=== PATIENT | female | born 1940 | race Caucasian/White ===

== ENCOUNTER 2017-08-05 08:19 | Inpatient (IN) | payer MEDICARE, OTHER ==
[2017-08-05 09:09] LABS: Bilirubin Negative (Negative); Blood, Urine Negative (Negative); Clarity CLEAR (Clear); Glucose, Urine (Dipstick) Negative (Negative); Leukocyte Negative (Negative); Nitrite Negative (Negative); Protein, Urine (Dipstick) 30 mg/dL (Neg-Trace); Specific Gravity, Urine 1.021 (1.002-1.036)
[2017-08-05 09:13] LABS: #Eosinphils 0.2 thou/uL (0.0-0.7); #Monocytes 0.6 thou/uL (0.11-0.59); #Neutrophils 4.3 thou/uL (1.40-6.50); %Basophils 0.5 % (0.0-1.0); %Eosinophils 2.4 % (0.0-10.0); %Lymphocytes 28.1 % (21.0-51.0); %Monocytes 8.4 % (0.0-10.0); %Neutrophils 60.6 % (42.0-75.0); Mean Corpuscular HGB CONC 33.2 g/dL (32.0-36.0); Mean Corpuscular Hemoglobin 33.8 pg (27.0-31.0); Mean Platelet Volume 8.3 fL (7.4-10.4); Platelet Count 376 thou/uL (130-400); Red Blood Cell (RBC) Count 3.56 mill/uL (4.20-5.40)
[2017-08-05 09:18] LABS: ALT (SGPT) 11 U/L (8-55); AST (SGOT) 15 U/L (5-34); Albumin 3.5 g/dL (3.4-4.8); Alkaline Phosphatase 113 U/L (40-150); Anion Gap 12 mmol/L (10-20); BUN (Urea Nitrogen) 9 mg/dL (9.8-20.1); Bilirubin, Total 0.4 mg/dL (0.2-1.2); CK (CPK) 39 U/L (29-168); Calc. Creatinine Clearance 0 mL/min (70-130); Calcium 8.9 mg/dL (7.8-10.44); Carbon Dioxide 24 mmol/L (23-31); Chloride 107 mmol/L (98-107); Estimated GFR-MDRD 60; Globulin 3.3 g/dL (2.4-3.5); Glucose 99 mg/dL (83-110); Lipase Less than 4 U/L (8-78); Protein, Total 6.8 g/dL (6.0-8.3); Sodium 140 mmol/L (136-145)
[2017-08-05 09:23] LABS: Bacteria/HPF None Seen HPF (None Seen); Hyaline Casts/LPF 0-3 HYALINE CAST LPF (0-3 Hyaline); Squamous Epithelial 0-3 HPF (0-3); WBC/HPF 0-3 HPF (0-3)
[2017-08-05 09:27] LABS: Potassium 2.7 mmol/L (3.5-5.1)
[2017-08-05 09:47] LABS: Renal Epithelial 0-3 HPF (0-3); Transitional Epithelial 0-3 HPF (0-3)
[2017-08-05] MEDS ORDERED: Morphine 4 MG/ML VIAL ONE ×3 (09:59→13:26)
[2017-08-05] MEDS ORDERED: ISOVUE-370 76%-LOCM 1 ML ONE (11:15)
--- NOTE | 2017-08-05 11:30 | CT ---
CT ABDOMEN AND PELVIS WITH IV CONTRAST: HISTORY: Abdominal pain. Vomiting. COMPARISON: 04/10/16. FINDINGS: Mild atelectasis at the lung bases. The gallbladder is surgically absent. Pancreas is atrophied. S carring and atrophy of the cortex of each kidney. Urinary bladder is decompressed. Prominent degenerative changes lumbar spine. Right hip prosthesis. Small amount of free fluid is present within the left upper quadrant and the dependent portion of the pelvis. There is subtle diffuse thickening of the bowel wall including most of the small bowel and colon. A focal area of inflammation is not reliably demonstrated. A loop of small bowel in the left upper quadrant is slightly distended with fluid, although the overall pattern is not suggestive of o bstruction. IMPRESSION: 1. Mild diffuse edema of the bowel without evidence of obstruction. Cause is not evident. 2. Diverticulosis. No findings of diverticulitis are reliably demonstrated. 3. Atherosclerosis. POS: [facility]
[2017-08-05] MEDS ORDERED: metroNIDAZOLE 500 MG/100 ML BAG ONE (13:56)
[2017-08-05] MEDS ORDERED: Potassium Chloride 20 MEQ TAB ONE (14:13)
[2017-08-05] MEDS ORDERED: Ondansetron ODT 4 MG TAB SL PRN (15:36)
[2017-08-05] MEDS ORDERED: Ondansetron HCl/PF 4 MG/2 ML Vial IVP PRN ×2 (15:36→16:35)
[2017-08-05] MEDS ORDERED: Acetaminophen 325 MG TAB PO PRN (15:36)
[2017-08-05] MEDS ORDERED: Sodium Chloride 0.9% 1,000 ML IV SCH (15:36)
[2017-08-05 16:02] VITALS: BMI 24.6
[2017-08-05] MEDS: Potassium Chloride 20 MEQ in Premix Bag 1 BAG IVPB SCH (16:16)
[2017-08-05] MEDS ORDERED: Bisacodyl 5 MG TAB PO PRN (16:35)
[2017-08-05] MEDS ORDERED: Ondansetron ODT 4 MG TAB PO PRN (16:35)
[2017-08-05] MEDS ORDERED: HYDROcodone/Acetaminophen 10/325 mg Tablet PO PRN (16:35)
[2017-08-05] MEDS ORDERED: diphenhydrAMINE 25 MG CAP PO PRN (16:35)
[2017-08-05] MEDS: Sodium Chloride 0.9% 1,000 ML IV SCH (16:56)
[2017-08-05] MEDS: Morphine 4 MG/ML VIAL SLOW IVP PRN ×2 (16:57→21:15)
--- NOTE | 2017-08-05 18:52 | HP ---
PRIMARY CARE PHYSICIAN: Gildardo Saunders D.O. in [facility]. CHIEF COMPLAINT: Abdominal pain with nausea, vomiting and diarrhea. HISTORY OF PRESENT ILLNESS: This is a 76-year-old white female with a known history of severe gastro enteritis infections about once every couple of years. Her last one was in March of this year, oft en will need to be admitted to the hospital for pain control and IV antibiotics. Patient reports izabella t yesterday evening around 5:00 p.m., she started developing sharp abdominal pains followed by persis tent nausea, vomiting of food and dry heaves more than 10 times and diarrhea seems like every 10 glenn shon, unable to quantify a number of times watery without blood or mucus. She said she had about an h our sleep last night due to severe pain and eventually decided to come into the emergency room. In t he ER, she required several doses of morphine to get her pain under control. CT scan was done which showed diffuse swelling of her intestines consistent with acute gastroenteritis, so she is being admi tted for pain control and IV hydration. She was also noted to have a severely low potassium of 2.7. She was given potassium cocktail in the emergency room. PAST MEDICAL HISTORY: 1. Hypertension. 2. Hyperlipidemia. 3. Remote history of atrial fibrillation. 4. Previous transient ischemic attack. 5. Osteoarthritis. PAST SURGICAL HISTORY: 1. Back surgery. 2. Right hip surgery x4. 3. Left ankle surgery x2. 4. Right ankle surgery x1. 5. Tonsillectomy. 6. Appendectomy. 7. Cholecystectomy. 8. Bilateral tubal ligation. FAMILY HISTORY: Father with coronary artery disease and myocardial infarction. Mother with hyperten mayra and thyroid cancer and a daughter with thyroid cancer. SOCIAL HISTORY: No tobacco, alcohol, or illicit drug use. She is a retired nurse's aide. ALLERGIES: 1. NONSTEROIDAL ANTI-INFLAMMATORY DRUGS. 2. PENICILLIN. 3. CEPHALOSPORINS. 4. CORTISONE. 5. DILAUDID. 6. MELOXICAM. 7. TORADOL. MEDICATIONS: 1. Furosemide 40 mg daily. 2. Tramadol 50 mg 4 times a day as needed. 3. Amlodipine/benazepril 10/40 mg 1 cap daily. 4. Hydrocodone/acetaminophen 10/325 mg 1-2 tabs every 4 hours as needed. 5. Protonix 40 mg daily. 6. Potassium chloride 20 mEq daily. 7. Trazodone 100 mg at night. REVIEW OF SYSTEMS: Constitutional: No fever. She has had chills with the nausea and vomiting. Eye s: No double vision or blurred vision. ENT: She has chronic postnasal drip. No sore throat. Card iovascular: No chest pain, no palpitations or racing heart. Pulmonary: She has occasional cough fr om a scratchy throat, but this is baseline for her. No shortness of breath or chest tightness. Maria Elena rointestinal: See HPI. Genitourinary: No dysuria or hematuria. Musculoskeletal: She has chronic pain in the back, hips, knees, and ankles which she takes [place] multiple times a day for. Skin: Lilliam navarrete reports a red rash that developed after Cipro effusion at this time. She has had Cipro in the p ast without a problem, but started getting itchy and red all of her arm until the infusion was stoppe d and now it is improving. No other skin changes. Neurologic: She reports chronic intermittent fee t tingling. No other focal neurologic symptoms. PHYSICAL EXAMINATION: VITAL SIGNS: Blood pressure 106/65, pulse 62, respirations 18, temperature 97.7, O2 sat 97% on room air. GENERAL: This is a well-developed, well-nourished elderly white female in no acute distress. HEENT: Pupils equal, round, and reactive to light. Oropharynx clear without lesions, erythema or ex udate. NECK: Supple, no lymphadenopathy, no thyroid nodules or enlargement, no JVD. HEART: Regular rate and rhythm, no murmurs, rubs or gallops. LUNGS: Clear to auscultation bilaterally, no wheezes, crackles or rhonchi. ABDOMEN: Tender to palpation diffusely, worse in the midepigastric region, no guarding, no rebound t enderness. No organomegaly. Normoactive bowel sounds. EXTREMITIES: No clubbing, cyanosis or edema. SKIN: No rashes or other lesions noted. NEUROLOGIC: Cranial nerves intact and equal bilaterally. Deep tendon reflexes 2+ in all extremities and strength 5/5 in all extremities. PSYCHIATRIC: Alert and oriented x3. Mildly anxious affect. LABORATORY DATA: CBC is grossly within normal limits except for MCV elevated at 102. Complete metab olic panel was notable for a potassium of 2.7, BUN of 9. The rest is normal. Lactic acid was negati ve. Magnesium was normal. Urinalysis was negative for infection. CT scan of the abdomen and pelvis in the emergency room showed mild diffuse edema of the bowel without evidence of obstruction. Diver ticulosis was noted without diverticulitis and atherosclerosis. ASSESSMENT AND PLAN: 1. Acute gastroenteritis, severe abdominal pain. This is consistent with her previous episodes in t he past. Patient has had a reaction to ciprofloxacin, so we will stop that. This acute gastritis ac tually does not have any appearance of bacterial source at this time, so we will actually discontinue antibiotics completely. We will give IV fluids, antiemetics, and advance her diet as tolerated. We will also give morphine IV until she is able to start taking her [place] again by mouth. 2. Hypokalemia, possibly related to her diarrhea and vomiting. Also, she has not been able to take her daily potassium tablet. We will replace IV until she is back to normal level and would attempt t o resume her oral medication. 3. Chronic pain. We will give morphine as needed until she can resume her chronic oral pain medicat ions. 4. Hypertension. Resume patient's high blood pressure medications. Hold for any low blood pressure . 5. Gastrointestinal prophylaxis. We will continue patient's Protonix. 6. Deep venous thrombosis prophylaxis. We will put patient on Lovenox and sequential compression de vices while in bed. 7. CODE STATUS: Patient is a FULL CODE. Should she be incapacitated, her daughter would be her med [facility] power of energy attorney, her name is Lena Bass.
[2017-08-05] MEDS ORDERED: Famotidine/PF 20 mg/2ml Vial SLOW IVP SCH (21:00)
[2017-08-05] MEDS ORDERED: Prevnar 13-Val Conj/PF 0.5 ML SYRINGE IM ONE (21:00)
[2017-08-05] MEDS ORDERED: traZODone HCl 50 MG TAB PO SCH (21:00)
[2017-08-05] MEDS: Mag-Al 1200 mg/1200 mg/30 ML UDCUP PO PRN (23:41)
[2017-08-06] MEDS: Morphine 4 MG/ML VIAL SLOW IVP PRN ×4 (00:26→09:15)
[2017-08-06] MEDS: Sodium Chloride 0.9% 1,000 ML IV SCH (03:05)
[2017-08-06 05:40] LABS: #Eosinphils 0.3 thou/uL (0.0-0.7); #Lymphocytes 2.8 thou/uL (1.20-3.40); #Monocytes 0.6 thou/uL (0.11-0.59); #Neutrophils 2.4 thou/uL (1.40-6.50); %Basophils 0.7 % (0.0-1.0); %Eosinophils 5.6 % (0.0-10.0); %Lymphocytes 45.2 % (21.0-51.0); %Monocytes 9.6 % (0.0-10.0); %Neutrophils 38.9 % (42.0-75.0); Mean Corpuscular HGB CONC 33.2 g/dL (32.0-36.0); Mean Corpuscular Hemoglobin 33.5 pg (27.0-31.0); Mean Platelet Volume 7.4 fL (7.4-10.4); Platelet Count 249 thou/uL (130-400); RBC Distribution Width 12.8 % (11.5-14.5); Red Blood Cell (RBC) Count 2.69 mill/uL (4.20-5.40); White Blood Cell (WBC) Count 6.2 thou/uL (4.8-10.8)
[2017-08-06 06:06] LABS: Anion Gap 7 mmol/L (10-20); BUN (Urea Nitrogen) 5 mg/dL (9.8-20.1); Calc. Creatinine Clearance 72 mL/min (70-130); Calcium 7.6 mg/dL (7.8-10.44); Carbon Dioxide 23 mmol/L (23-31); Chloride 113 mmol/L (98-107); Estimated GFR-MDRD 88; Glucose 79 mg/dL (83-110); Potassium 3.5 mmol/L (3.5-5.1); Sodium 139 mmol/L (136-145)
--- NOTE | 2017-08-06 07:31 | PDOC.PN ---
- Subjective Encounter Start Date: 08/06/17 Encounter Start Time: 09:30 Subjective: Patient with resolution of N/V. Diarrhea only 2 times this AM. Still with -: abdominal pain along with her chronic pain. States usually takes 2 Sugarcreek -: 10 2-3 times per day, though out and no more until next week with PCP - Objective Resuscitation Status: Resuscitation Status FULL:Full Resuscitation MAR Reviewed: Yes Vital Signs & Weight: Vital Signs (12 hours) Temp Pulse Resp BP Pulse Ox 08/06/17 03:21 98.0 F 65 15 110/61 92 L 08/06/17 00:25 97.5 F L 63 16 99/56 L 97 08/05/17 20:03 98.0 F 69 15 118/65 97 Weight Weight 139 lb 4 oz I&O: 08/05/17 08/06/17 08/07/17 06:59 06:59 06:59 Intake Total 2701 Balance 2701 Result Diagrams: 08/06/17 04:43 08/06/17 04:43 Phys Exam - Physical Examination Constitutional: NAD HEENT: moist MMs Respiratory: no wheezing, no rales, no rhonchi Cardiovascular: RRR, no significant murmur Gastrointestinal: soft, no distention, positive bowel sounds diffuse upper abd moderat TTP, no guarding or rebound tenderness, no masses Musculoskeletal: no edema Neurological: non-focal, moves all 4 limbs Psychiatric: normal affect, A&O x 3 Dx/Plan (1) Acute gastroenteritis Code(s): K52.9 - NONINFECTIVE GASTROENTERITIS AND COLITIS, UNSPECIFIED Status : Acute Comment: food poisoning vs. viral infection (2) Dehydration Code(s): E86.0 - DEHYDRATION Status: Resolved (3) Hypokalemia Code(s): E87.6 - HYPOKALEMIA Status: Resolved (4) Anxiety and depression Code(s): F41.9 - ANXIETY DISORDER, UNSPECIFIED; F32.9 - MAJOR DEPRESSIVE DISORDER, SINGLE EPISODE, UNSPECIFIED Status: Chronic (5) GERD (gastroesophageal reflux disease) Code(s): K21.9 - GASTRO-ESOPHAGEAL REFLUX DISEASE WITHOUT ESOPHAGITIS Status: Chronic (6) HLD (hyperlipidemia) Code(s): E78.5 - HYPERLIPIDEMIA, UNSPECIFIED Status: Chronic Qualifiers: Hyperlipidemia type: unspecified hyperlipidemia (7) Hypertension Code(s): I10 - ESSENTIAL (PRIMARY) HYPERTENSION Status: Chronic Qualifiers: Hypertension type: essential hypertension Qualified Code(s): I10 - Essential (primary) hypertension (8) Chronic pain Code(s): G89.29 - OTHER CHRONIC PAIN Status: Chronic - Plan cont current plan of care, PT/OT, out of bed/ambulate, DVT proph w/lovenox, DVT proph w/SCDs Transition to oral pain meds, d/c today as taking good po fluid -: Counseled patient that I cannot refill her Sugarcreek from the hospital, must -: go to see her PCP, will give a script of Tramadol to make it through the -: weekend. Patient states that has worked ok for her in the past as well. * . - Discharge Encounter end time: 10:05
[2017-08-06] MEDS ORDERED: Loperamide HCl 2 MG CAP PO PRN (07:34)
[2017-08-06] MEDS ORDERED: Enoxaparin Sodium 40 MG/0.4 ML SYRINGE SC SCH (09:00)
[2017-08-06] MEDS ORDERED: Amlodipine 5 mg/Benazepril 20 mg CAP PO SCH (09:00)
[2017-08-06] MEDS ORDERED: Potassium Chloride 20 MEQ TAB PO SCH (09:00)
[2017-08-06] MEDS ORDERED: HYDROcodone/Acetaminophen 10/325 mg Tablet PO PRN (10:06)
[2017-08-06] MEDS: Mag-Al 1200 mg/1200 mg/30 ML UDCUP PO PRN (10:50)
[2017-08-06 11:34] VITALS: BP 115/63; TEMP 98.1
--- NOTE | 2017-08-06 18:42 | DIS ---
PRIMARY CARE PHYSICIAN: Gildardo Saunders DO in [place], [place]. REASON FOR ADMISSION: Abdominal pain with nausea, vomiting, and diarrhea. DISCHARGE DIAGNOSES: 1. Acute gastroenteritis, improving, food poisoning versus viral infection. 2. Dehydration, resolved. 3. Hypokalemia, resolved. 4. Chronic pain. 5. Anxiety and depression. 6. Gastroesophageal reflux disease. 7. Hyperlipidemia. 8. Hypertension. PROCEDURE: CT of the abdomen and pelvis with IV contrast showing mild diffuse edema of the bowel wit hout evidence of obstruction. No diverticulosis, no diverticulitis, and atherosclerosis. CONSULTATIONS: None. PERTINENT LABORATORY DATA: Hemoglobin initially 12, down to 9 after fluid resuscitation. No evidenc e of active bleeding. Potassium initially 2.7 up to 3.5 at discharge, creatinine 0.65 at discharge. Negative lactic acid. Normal liver function tests. Urinalysis is negative for infection. SUMMARY OF HOSPITAL COURSE: This is a 76-year-old white female with a known history of severe gastro enteritis infections about once every couple years, the last one was in March of this year usually needs to be admitted to the hospital for pain control and IV antibiotics. The patient also has chron ic pain, is on [place] 10 mg 2 tablets 2-3 times per day from her primary care physician. At the time of discharge, the patient reported that she actually has been out of this medication and would not se e her primary care physician for another week or two to get a refill, so this may be contributing. S he developed acute onset of abdominal pain, nausea, vomiting many times, and watery diarrhea in copio us amounts. She was seen in the emergency room with the above studies. The patient was given IV flu ids; IV morphine for pain control, which she required a lot in the emergency room; and then given a d ose of metronidazole and ciprofloxacin in the ER. When the ciprofloxacin started running, she starte d getting itching all over her arms, so it was stopped with resolution of the itching. She has not h ad a problem with this medication in the past including last March. The patient was admitted to [facility]. She did well overnight. She had a low potassium and evidence of dehydration on admissio n, was given IV potassium and IV fluids, and she was much better the next morning down to 2 bowel mov ements this morning and no more nausea or vomiting. She has been tolerating oral pain medications an d oral fluids and is being switched to a full diet. She continues to have abdominal pain, which is f airly typical for her after these attacks along with her chronic pain. This has improved with Mesilla in the hospital. DISCHARGE MANAGEMENT: Discharged home. Follow up with primary care physician next week. ACTIVITY: As tolerated. DIET: Healthy heart diet with plenty of fluids. MEDICATIONS: The patient is to resume her home medications. 1. Potassium chloride 20 mEq daily. 2. Trazodone 100 mg at night. 3. Protonix 40 mg daily. 4. Furosemide 40 mg daily. 5. Amlodipine/benazepril 1 cap daily. 6. Hydrocodone 10/325 mg 2 tablets as needed for pain when she gets refill from her primary care tarsha griffin plus I have given her prescriptions for. 7. Tramadol 50 mg 2 tablets every 6 hours as needed for pain, 20 tablets dispensed. 8. Prescription of Zofran ODT 4 mg q.6 hours as needed for nausea and vomiting, 15 tablets dispensed .
== END 2017-08-06 13:44 | disposition home or self-care (01) | DRG 641 ==
LOC: ERS 08:19 → T4-B 12:11
PROVIDERS: ADMIT Emergency Medicine; ATTEND Emergency Medicine
DX: E86.0 Dehydration (principal); K52.9 Noninfective gastroenteritis and colitis, unspecified; Z86.73 Personal history of transient ischemic attack (TIA), and cerebral infarction without residual deficits; M19.90 Unspecified osteoarthritis, unspecified site; E78.5 Hyperlipidemia, unspecified; I10 Essential (primary) hypertension; Z88.0 Allergy status to penicillin; Z79.899 Other long term (current) drug therapy; E87.6 Hypokalemia; G89.29 Other chronic pain
CPT/HCPCS: 36415; 51701; 74177; 80048; 80053; 81003; 81015; 82550; 83605; 83690; 83735; 85025; 87040; 87045; 87046; 87086; 87149; 87324; 87449; 87493; 87899; 90471; 90670; 93005; 96365; 96366; 96367; 96375; 96376; A4353; G0009; J0744; J1650; J2270; J3480; Q0162

== ENCOUNTER 2017-08-07 18:40 | Emergency (ER) | payer MEDICARE, OTHER ==
[2017-08-07] MEDS ORDERED: Haloperidol Lactate 5 MG/ML VIAL ONE (19:19)
[2017-08-07] MEDS ORDERED: HYDROcodone/Acetaminophen 10/325 mg Tablet ONE (19:19)
[2017-08-07] MEDS ORDERED: Pantoprazole 40 MG VIAL ONE (19:42)
[2017-08-07 20:16] LABS: #Basophils 0.1 thou/uL (0.0-0.2); #Eosinphils 0.2 thou/uL (0.0-0.7); #Monocytes 0.7 thou/uL (0.11-0.59); #Neutrophils 6.3 thou/uL (1.40-6.50); %Basophils 1.3 % (0.0-1.0); %Eosinophils 2.3 % (0.0-10.0); %Monocytes 7.7 % (0.0-10.0); %Neutrophils 67.8 % (42.0-75.0); Hemoglobin 11.9 g/dL (12.0-16.0); Mean Corpuscular HGB CONC 33.1 g/dL (32.0-36.0); Mean Corpuscular Hemoglobin 33.3 pg (27.0-31.0); Mean Platelet Volume 7.4 fL (7.4-10.4); Platelet Count 334 thou/uL (130-400); RBC Distribution Width 12.7 % (11.5-14.5); Red Blood Cell (RBC) Count 3.57 mill/uL (4.20-5.40); White Blood Cell (WBC) Count 9.3 thou/uL (4.8-10.8)
[2017-08-07 20:16] LABS: Bilirubin Negative (Negative); Blood, Urine Negative (Negative); Clarity CLEAR (Clear); Glucose, Urine (Dipstick) Negative (Negative); Leukocyte Negative (Negative); Nitrite Negative (Negative); Protein, Urine (Dipstick) Negative (Neg-Trace); Specific Gravity, Urine 1.011 (1.002-1.036); Urobilinogen 0.2 mg/dL (0.2-1.0); pH, Urine 8.5 (5.0-9.0)
[2017-08-07 20:32] LABS: Albumin 3.9 g/dL (3.4-4.8)
[2017-08-07 20:33] LABS: Chloride 105 mmol/L (98-107); Potassium 4.5 mmol/L (3.5-5.1); Sodium 141 mmol/L (136-145)
[2017-08-07 20:34] LABS: Glucose 123 mg/dL (83-110)
[2017-08-07 20:35] LABS: Globulin 3.5 g/dL (2.4-3.5); Protein, Total 7.4 g/dL (6.0-8.3)
[2017-08-07 20:36] LABS: Anion Gap 14 mmol/L (10-20); Bilirubin, Total 0.3 mg/dL (0.2-1.2); Carbon Dioxide 27 mmol/L (23-31)
[2017-08-07 20:37] LABS: Alkaline Phosphatase 131 U/L (40-150)
[2017-08-07 20:38] LABS: Calc. Creatinine Clearance 0 mL/min (70-130); Estimated GFR-MDRD 65
[2017-08-07 20:39] LABS: BUN (Urea Nitrogen) 7 mg/dL (9.8-20.1)
[2017-08-07 20:40] LABS: ALT (SGPT) 20 U/L (8-55); AST (SGOT) 33 U/L (5-34); Lipase Less than 4 U/L (8-78)
[2017-08-07 20:43] LABS: Calcium 9.2 mg/dL (7.8-10.44)
== END 2017-08-07 21:34 | disposition home or self-care (01) ==
LOC: ERS 18:40
DX: K52.9 Noninfective gastroenteritis and colitis, unspecified (principal); I10 Essential (primary) hypertension; M19.90 Unspecified osteoarthritis, unspecified site; F41.9 Anxiety disorder, unspecified; F32.9 Major depressive disorder, single episode, unspecified; Z79.891 Long term (current) use of opiate analgesic; Z79.899 Other long term (current) drug therapy
CPT/HCPCS: 80053; 81003; 83690; 85025; 96372; 96374; 96375; C9113; J1630

== ENCOUNTER 2019-11-25 11:47 | Inpatient (IN) | payer MEDICARE, OTHER ==
[2019-11-25] MEDS ORDERED: Morphine 4 MG/ML VIAL ONE ×2 (12:08→13:07)
[2019-11-25 12:19] LABS: #Basophils 0.1 thou/uL (0.0-0.2); #Eosinphils 0.2 thou/uL (0.0-0.7); #Lymphocytes 2.5 thou/uL (1.20-3.40); #Neutrophils 6.9 thou/uL (1.40-6.50); %Basophils 0.5 % (0.0-1.0); %Lymphocytes 23.3 % (21.0-51.0); %Monocytes 9.2 % (0.0-10.0); %Neutrophils 65.1 % (42.0-75.0); Hemoglobin 11.5 g/dL (12.0-16.0); Mean Corpuscular HGB CONC 33.1 g/dL (32.0-36.0); Mean Corpuscular Hemoglobin 32.2 pg (27.0-31.0); Mean Corpuscular Volume 97.5 fL (78.0-98.0); Mean Platelet Volume 8.7 fL (7.4-10.4); Platelet Count 250 thou/uL (130-400); RBC Distribution Width 11.8 % (11.5-14.5); Red Blood Cell (RBC) Count 3.58 mill/uL (4.20-5.40); White Blood Cell (WBC) Count 10.7 thou/uL (4.8-10.8)
--- NOTE | 2019-11-25 12:45 | RAD ---
Chest one view HISTORY: Chest pain. COMPARISON: 04/10/2016. FINDINGS: Cardiac silhouette is magnified by projection. Pulmonary vasculature is unremarkable. Mediastinum is midline with aortic calcification. No lobar consolidation or evidence of pneumothorax. IMPRESSION : Atherosclerosis. No active cardiopulmonary abnormalities are demonstrated.
--- NOTE | 2019-11-25 12:47 | RAD ---
Left lower leg 2 views HISTORY: Injury. FINDINGS: Tibia and fibula are intact. Long lag screw transfixes the tibiotalar joint. No valentin-hardwa re lucency. No acute fracture, dislocation, or aggressive osseous erosions. IMPRESSION : No acute osseous abnormalities are demonstrated.
[2019-11-25 13:00] LABS: ALT (SGPT) 12 U/L (8-55); AST (SGOT) 23 U/L (5-34); Albumin 3.6 g/dL (3.4-4.8); Alkaline Phosphatase 200 U/L (40-110); Anion Gap 20 mmol/L (10-20); BUN (Urea Nitrogen) 13 mg/dL (9.8-20.1); Bilirubin, Total 0.6 mg/dL (0.2-1.2); Calc. Creatinine Clearance 0 mL/min (70-130); Calcium 6.6 mg/dL (7.8-10.44); Carbon Dioxide 29 mmol/L (23-31); Chloride 89 mmol/L (98-107); Estimated GFR-MDRD 43; Globulin 3.2 g/dL (2.4-3.5); Glucose 94 mg/dL (83-110); Protein, Total 6.8 g/dL (6.0-8.3); Sodium 135 mmol/L (136-145)
--- NOTE | 2019-11-25 13:03 | RAD ---
LEFT FEMUR FOUR VIEWS: INDICATIONS: Trauma. FINDINGS: Oblique displaced fracture involving the proximal diaphysis of the left femur is noted. Degenerative changes at the hip and knee. IMPRESSION: Displaced fracture, proximal diaphysis of left femur. POS: [facility]
[2019-11-25 13:05] LABS: Potassium 2.8 mmol/L (3.5-5.1)
[2019-11-25 13:22] LABS: Magnesium 1.4 mg/dL (1.6-2.6); Phosphorus 3.3 mg/dL (2.3-4.7)
--- NOTE | 2019-11-25 13:41 | RAD ---
RIGHT TIBIA/FIBULA TWO VIEWS: History: Trauma FINDINGS: There is spiral type fracture with slight communition involving the distal diaphysis of the tibia. Th ere is an associated oblique fracture without significant displacement involving the distal fibula at the lateral malleolus. IMPRESSION: Fractures distal tibia and fibula. POS: [facility]
--- NOTE | 2019-11-25 13:46 | RAD ---
AP PELVIS: History: Trauma FINDINGS: Right hip prosthesis is noted. Degenerative changes of the left hip. Pelvis appears intact. The left hip is inadequately evaluated. See dedicated films of the left femur. IMPRESSION: As above. POS: [facility]
--- NOTE | 2019-11-25 13:47 | RAD ---
RIGHT FEMUR FOUR VIEWS: History: Trauma FINDINGS: Right hip prosthesis appears adequately positioned. No fracture of the right femur identified. Degene rative changes at the knee. IMPRESSION: No acute findings. POS: [facility]
[2019-11-25] MEDS ORDERED: Ondansetron PF 4 MG/2 ML Vial ONE (13:48)
[2019-11-25] MEDS ORDERED: PROPOFOL 200 MG/20 ML VIAL ONE (13:48)
[2019-11-25] MEDS ORDERED: Lidocaine 1% PF 5 ML VIAL ONE (13:48)
[2019-11-25] MEDS ORDERED: Rocuronium Bromide 10 MG/ML (10ML VIAL) ONE (13:48)
[2019-11-25] MEDS ORDERED: PHENYLEPHRINE-NS 100 MCG/ML 10 ML SYRINGE ONE (13:48)
[2019-11-25] MEDS ORDERED: Fentanyl 100 MCG/2 ML VIAL ONE ×4 (13:48→18:45)
[2019-11-25] MEDS ORDERED: Dexamethasone 20 MG/5 ML VIAL ONE (13:48)
[2019-11-25] MEDS ORDERED: Phenylephrine 10 MG/ML VIAL ONE (13:49)
[2019-11-25] MEDS ORDERED: Potassium Chloride 40 MEQ in Sodium Chloride 0.9% 250 ML 250 ML IVPB SCH (14:00)
[2019-11-25] MEDS ORDERED: Potassium Chloride 20 MEQ in Premix Bag 1 BAG IVPB SCH (14:00)
[2019-11-25 14:13] LABS: SARS-CoV-2 NAA Rapid Test Not Detected (NotDetected)
[2019-11-25] MEDS ORDERED: Sodium Chloride 0.9% 500 ML IV SCH (14:30)
[2019-11-25] MEDS ORDERED: Dextrose 5% in Water 1,000 ML IV PRN (14:41)
[2019-11-25] MEDS ORDERED: Dextrose 50% Abboject 50 ML SYRINGE SLOW IVP PRN (14:41)
[2019-11-25] MEDS ORDERED: Morphine 2 MG/ML VIAL SLOW IVP PRN (14:41)
[2019-11-25] MEDS ORDERED: hydrALAZINE 20 MG/ML VIAL SLOW IVP PRN (14:41)
[2019-11-25] MEDS ORDERED: Promethazine HCl 25 MG/ML VIAL IM PRN ×3 (14:41→19:07)
[2019-11-25] MEDS ORDERED: Ketamine 50 MG/ML (10ML VIAL) ONE (14:43)
[2019-11-25] MEDS ORDERED: traMADol HCl 50 MG TAB PO PRN (14:45)
[2019-11-25] MEDS ORDERED: Calcium Chloride 1 GM/10 ML Abboject SYRINGE IVP SCH (14:45)
[2019-11-25] MEDS ORDERED: traMADol HCl 50 MG TAB PO SCH (14:45)
[2019-11-25] MEDS ORDERED: Magnesium Sulfate 4 GM in Sodium Chloride 0.9% 250 ML 250 ML IVPB SCH (14:45)
[2019-11-25] MEDS ORDERED: Cepastat Lozenges 1 LOZ PO PRN (14:45)
[2019-11-25] MEDS ORDERED: Levofloxacin 500 mg/D5W 100 ml Premix Bag ONE (15:18)
[2019-11-25] MEDS ORDERED: Clindamycin/D5W 900 mg/50 ml Premix Bag ONE (15:18)
--- NOTE | 2019-11-25 16:46 | CON ---
DATE OF CONSULTATION: HISTORY OF PRESENT ILLNESS: Ms. Holcomb is a 78-year-old female, who has peripheral neuropathy. She feels that she has poor balance because of this. She frequently falls. She was in her kitchen this morning when she lost her balance. She did have a walker nearby, but it rolled away from her. She fell and twisted her legs. She was unable to ambulate. She was taken to the emergency department by EMS. X-rays showed a left subtrochanteric femur fracture as well as a right distal tibia fracture and fibular fracture. General Surgery Trauma has seen the patient. She has had a negative COVID test. ALLERGIES: KEFLEX, CORTISONE, DILAUDID, KETOROLAC, MELOXICAM, PENICILLIN, AND TORADOL. MEDICATIONS: Please see chart. PAST MEDICAL HISTORY: Positive for hypertension, osteoarthritis, GERD, diverticulitis. SURGICAL HISTORY: Previous right hip arthroplasty, previous left ankle fusion, cholecystectomy, tubal ligation, appendectomy, multiple spinal surgeries. SOCIAL HISTORY: The patient lives at [facility]. She denies tobacco, alcohol, or drug use. She uses a walker at baseline. IMAGING STUDIES: X-rays of the right tibia demonstrate a distal tibia and fibular fracture with displacement. The patient has thin cortices and osteoporotic appearing bone. There is some displacement of the fracture. Left femur x-rays demonstrate a subtrochanteric displaced femur fracture. PHYSICAL EXAMINATION: VITAL SIGNS: Blood pressure is 125/84, pulse is 84, respiratory rate is 18, temperature is 98.3. GENERAL: She is alert, lying supine, no apparent distress. RESPIRATORY: Breathing comfortably. HEENT: Normocephalic and atraumatic. MUSCULOSKELETAL: The patient's left lower extremity has shortening and external rotation. She has warm and well-perfused feet. She has palpable dorsalis pedis pulses. Sensation is intact distally. Upper extremities are atraumatic. She has pain with hip motion of the left leg. Her right tibia is painful and there is swelling and ecchymosis. IMPRESSION: Right distal tibia and fibular fracture, left subtrochanteric femur fracture. PLAN: The patient will go to the operating room for intramedullary nail of the left femur and right tibia. We will proceed with this today. She is at risk for complications such as infection, wound complication, nerve or vascular injury, DVT, as well as medical complications. Goal of surgery is early mobilization and to provide pain relief. We are trying to prevent complications of prolonged bedrest. She will be given preoperative antibiotics and she will have postoperative DVT prophylaxis. Job ID: [id number]
[2019-11-25] MEDS ORDERED: Ondansetron HCl/PF 4 MG/2 ML Vial IVP PRN (17:43)
[2019-11-25] MEDS ORDERED: Promethazine HCl 25 MG/ML VIAL SLOW IVP PRN (17:43)
[2019-11-25] MEDS ORDERED: SUGAMMADEX SODIUM 200 MG/2 ML VIAL ONE (17:49)
--- NOTE | 2019-11-25 18:18 | RAD ---
RIGHT TIBIA/FIBULA: Seven fluoroscopic images obtained from OR. Indications: Intraoperative imaging during ORIF. FINDINGS: These images demonstrate intramedullary ad transfixing the tibia. IMPRESSION: As above. POS: [facility]
[2019-11-25] MEDS ORDERED: Zolpidem Tartrate 5 MG TAB PO PRN (19:07)
[2019-11-25] MEDS ORDERED: diphenhydrAMINE 50 MG/ML VIAL IVP PRN (19:07)
[2019-11-25] MEDS ORDERED: Ondansetron PF 4 MG/2 ML Vial IVP PRN (19:07)
[2019-11-25] MEDS ORDERED: fentaNYL Citrate/PF 2,000 MCG in Sodium Chloride 0.9% 60 ML IV PRN (19:07)
[2019-11-25] MEDS ORDERED: diphenhydrAMINE 50 MG/ML VIAL IM PRN (19:07)
[2019-11-25] MEDS ORDERED: Naloxone HCl 0.4 mg/ml Vial IV PRN (19:07)
[2019-11-25] MEDS ORDERED: diphenhydrAMINE 25 MG CAP PO PRN (19:07)
[2019-11-25] MEDS ORDERED: Communication Order-Pharmacy FS SCH (19:15)
[2019-11-25] MEDS: Acetaminophen 500 MG TAB PO SCH ×2 (20:18→21:31)
[2019-11-25] MEDS: Gabapentin 300 MG CAP PO SCH ×2 (20:19→21:31)
[2019-11-25] MEDS ORDERED: Clindamycin/D5W 900 MG in Premix Bag 1 BAG IVPB SCH (20:45)
[2019-11-25] MEDS ORDERED: Cholecalciferol 1,000 UNITS (25 MCG) TAB PO SCH (21:00)
[2019-11-25] MEDS: Sodium Chloride 0.9% 1,000 ML IV SCH ×2 (21:30)
[2019-11-25] MEDS: Senokot S 8.6-50 MG TAB PO SCH (21:31)
[2019-11-25] MEDS ORDERED: Gabapentin 300 MG CAP PO SCH (22:23)
[2019-11-26] MEDS: Clindamycin/D5W 900 MG in Premix Bag 1 BAG IVPB SCH ×2 (00:09→09:29)
[2019-11-26] MEDS: Calcium Carbonate 500 MG ChewTAB PO PRN ×3 (00:34→20:16)
[2019-11-26] MEDS: Cyclobenzaprine 10 MG TAB PO PRN ×3 (00:34→20:17)
[2019-11-26 01:25] VITALS: BMI 29.5
[2019-11-26] MEDS: Acetaminophen 500 MG TAB PO SCH ×2 (02:25→09:42)
[2019-11-26 04:49] LABS: Hemoglobin 8.7 g/dL (12.0-16.0); Mean Corpuscular HGB CONC 32.5 g/dL (32.0-36.0); Mean Corpuscular Hemoglobin 31.5 pg (27.0-31.0); Mean Corpuscular Volume 96.8 fL (78.0-98.0); Mean Platelet Volume 8.9 fL (7.4-10.4); Platelet Count 190 thou/uL (130-400); RBC Distribution Width 11.7 % (11.5-14.5); Red Blood Cell (RBC) Count 2.75 mill/uL (4.20-5.40)
[2019-11-26 05:21] LABS: Anion Gap 14 mmol/L (10-20); BUN (Urea Nitrogen) 18 mg/dL (9.8-20.1); Calc. Creatinine Clearance 45 mL/min (70-130); Calcium 6.4 mg/dL (7.8-10.44); Carbon Dioxide 25 mmol/L (23-31); Chloride 92 mmol/L (98-107); Estimated GFR-MDRD 43; Glucose 196 mg/dL (83-110); Magnesium 2.2 mg/dL (1.6-2.6); Phosphorus 4.3 mg/dL (2.3-4.7); Potassium 3.3 mmol/L (3.5-5.1); Sodium 128 mmol/L (136-145)
--- NOTE | 2019-11-26 07:50 | RAD ---
LEFT FEMUR: Six fluoroscopic images are presented from OR Indication: Imaging during ORIF. FINDINGS: These images show intermedullary ad in the femur transfixing fracture. IMPRESSION: As above. POS: [facility]
[2019-11-26] MEDS ORDERED: Calcium Chloride 1 GM/10 ML Abboject SYRINGE IVP SCH (08:45)
[2019-11-26] MEDS: Gabapentin 300 MG CAP PO SCH ×2 (09:28→20:18)
[2019-11-26] MEDS: Famotidine 20 MG TAB PO SCH (09:28)
[2019-11-26] MEDS: Calcium Carbonate 600 MG + Vit D TAB PO SCH ×2 (09:29→16:35)
[2019-11-26] MEDS: Polyethylene Glycol 3350 17 GM Packet PO SCH (09:30)
[2019-11-26] MEDS: Senokot S 8.6-50 MG TAB PO SCH ×2 (09:31→20:18)
[2019-11-26] MEDS: Cholecalciferol 1,000 UNITS (25 MCG) TAB PO SCH (09:37)
[2019-11-26] MEDS: Sodium Chloride 0.9% 1,000 ML IV SCH ×2 (09:42→11:54)
[2019-11-26] MEDS ORDERED: ADMIXTURE FEE IVPB SCH (10:45)
[2019-11-26] MEDS ORDERED: SODIUM CHLORIDE IVPB SCH (10:45)
[2019-11-26] MEDS ORDERED: CALCIUM CHLORIDE IVPB SCH (10:45)
[2019-11-26] MEDS: Morphine 4 MG/ML VIAL SLOW IVP PRN ×3 (12:37→21:12)
[2019-11-26] MEDS: traMADol HCl 50 MG TAB PO SCH ×2 (12:51→19:07)
--- NOTE | 2019-11-26 12:56 | HP ---
This is Emely Hawley NP dictating a report for Denny Godfrey MD. REQUESTING PHYSICIAN: Freeman Multani MD. ATTENDING: Denny Godfrey MD PRIMARY CARE PHYSICIAN: Dr. Lali Rubi at [facility]. CONSULTS: Orthopedic surgery, Dr. Maharaj. CHIEF COMPLAINT: Mechanical fall. HISTORY OF PRESENT ILLNESS: This is a 78-year-old female, who lives in assisted living apartment at [facility]. The patient states that she was ambulating in her home when she felt both of her legs buckle causing her to fall to the ground. The patient denies any loss of consciousness or hitting her head. The patient denies feeling weak, dizzy, short of breath or having any chest pain prior to the event. The patient states that she has been having tingling and issues with her legs for about a year. The patient reports that over the last 6 months it has gotten worse where her legs feel heavy and it feels like constant, ants are biting her. The patient also sees a pain specialist for chronic pain due to arthritis. The patient does have a hand picker, who comes in 3 days a week to assist with chores and cooking. The patient uses a walker to ambulate. The patient reports when she fell, it took her approximately 30 minutes to scoup herself to her cellphone using her upper extremities. The patient has been n.p.o. since dinner yesterday. The patient was given morphine 4 mg for pain. She denies nausea, vomiting, diarrhea or abdominal pain. Denies any recent illness. REVIEW OF SYSTEMS: A 10-point review of systems is negative unless otherwise indicated in the above HPI. ALLERGIES: KEFLEX, CORTISONE INJECTIONS, DILAUDID, KEFLEX, TORADOL, MELOXICAM, AND PENICILLIN. CURRENT MEDICATIONS: 1. Lasix. 2. Gabapentin 300 mg b.i.d. 3. Tramadol. The patient is unsure of her other medications. PAST MEDICAL HISTORY: Hypertension, diverticulitis, osteoarthritis, anxiety and depression. PAST SURGICAL HISTORY: Right hip surgery, left ankle surgery, appendectomy, cholecystectomy, tubal ligation, multiple spinal surgeries. SOCIAL HISTORY: The [facility] Denies alcohol use. Denies illicit drug use. Denies history of smoking. PHYSICAL EXAMINATION: VITAL SIGNS: Blood pressure 123/96, pulse 79, respirations 15, SpO2 of 100% on room air, and temperature 98. GENERAL: Elderly female, awake, alert, in no distress, lying in hospital bed. HEENT: Head is atraumatic and normocephalic. Pupils are equal bilateral. Extraocular muscles intact. Mucous membranes slightly dry, trachea is midline. NECK: Normal range of motion. No cervical spine tenderness. No JVD. RESPIRATORY: Equal chest rise and fall. No chest deformity. Bilateral breath sounds clear. No wheezing, rales, or rhonchi. CARDIAC: Regular rate. Regular rhythm. No murmurs. No pedal edema. ABDOMEN: Soft, nontender, and nondistended. EXTREMITIES: Neurovascularly intact x4, right lower extremity splinted and cap refill is less than 2 seconds. No obvious injuries. Left lower extremity, mildly shortened. Distal pulses intact. Strength 5/5 in all 4 extremities. Upper extremities, unremarkable. No obvious trauma. Normal range of motion in upper extremities. NEUROLOGIC: GCS 15. No focal deficits. Cranial nerves intact. LABORATORY DATA: WBC 10.7, RBC 3.58, hemoglobin 11.5, hematocrit 34.9, and platelets 250. Sodium 135, potassium 2.8, chloride 89, BUN 13, creatinine 1.21, estimated GFR 43, glucose 94, calcium 6.6, phosphorus 3.3, magnesium 1.4, AST 23 , ALT 12, alkaline phosphatase 200, and albumin 3.6. DIAGNOSTIC DATA: Chest x-ray, impression, no acute cardiopulmonary abnormalities. Pelvis x-ray, impression, there are degenerative changes to left hip, right hip prosthesis is noted. Pelvis appears intact. Left femur x-ray, impression, displaced fracture, proximal diaphysis of left femur. Tib-fib, left leg, no acute osseous abnormalities demonstrated. Right femur x-ray, right hip prosthesis appears adequately positioned. No fracture of the right femur identified. Tibia fibula, right, fractured distal tibia and fibula. 12-lead EKG, sinus rhythm with prolonged QT. IMPRESSION: 1. Status post fall from standing. 2. Distal tibia and fibula fracture. 3. Proximal left femur fracture. 4. Hypokalemia. 5. Hypomagnesemia. 6. Hyponatremia. 7. Hypocalcemia. 8. Acute kidney injury. PLAN: Admission to the surgical floor. The patient will remain n.p.o. Maintenance fluids, normal saline 100 an hour. Orthopedic Surgery plans to take the patient to the OR today for repair of orthopedic injuries. Pain management, supportive care. We will replace electrolytes. Obtain a PTH and Vitamin D level. We will repeat labs in the morning. PT and OT to evaluate and treat postop likely tomorrow. We will place a rehab versus skilled facility screen as the patient will need additional physical and occupational therapy. The plan was to be discussed with attending after this dictation. The plan was discussed with the patient and the patient's daughter, who agrees. Job ID: [id number] [facility]
--- NOTE | 2019-11-26 13:15 | RAD ---
Exam: XR Foot Lt 3 View STANDARD HISTORY: Left fifth toe pain. COMPARISON: 11/15/2013 FINDINGS: There is osteopenia. A single screw again transfixes the tibiotalar joint. No fracture or dislocation is seen. No osseous destruction is identified. No other findings. IMPRESSION: No acute osseous abnormality is identified.
[2019-11-26] MEDS: Potassium Chloride 40 MEQ in Sodium Chloride 0.9% 250 ML 250 ML IVPB SCH ×2 (14:00→16:49)
--- NOTE | 2019-11-26 16:20 | PRG ---
DATE OF SERVICE: 11/26/2019 SUBJECTIVE: The patient was seen this evening during rounds. She is postoperative day 0 after fixation of her left femur and right distal tib-fib fractures. Upon our evaluation, the patient was sitting up in bed, awake and alert. She was having chips and coke. She reported her pain is well controlled. We did adjust the patient in the bed. OBJECTIVE: VITAL SIGNS: The patient was hemodynamically stable on room air, and afebrile. GENERAL: Well-appearing elderly female, sitting up in bed with no signs of acute distress. PULMONARY: Equal chest rise and fall. No signs of acute respiratory distress. CARDIAC: Regular rate and rhythm. GI: Abdomen is soft, nontender, nondistended. EXTREMITIES: 2+ pulses in all extremities. Gross motor and sensation intact. No significant swelling noted. NEUROLOGIC: GCS is 15. ASSESSMENT: 1. Status post fall from standing. 2. Left femur fracture. 3. Right distal tib-fib fracture. 4. Acute kidney injury. 5. Hypokalemia, hypomagnesemia, hypocalcemia. 6. Vitamin D insufficiency. 7. History of arthritis, hypertension, chronic pain, diverticulitis, depression, and anxiety. PLAN: Continue current regular diet. Continue normal saline at 100 an hour. Anesthesia has placed a fentanyl MANAGER COSMETICS, continue that overnight. Discontinue Pepcid. Start PPI. Hold the patient's Lasix and antihypertensive for now. Replace electrolytes as previously ordered. Job ID: [id number]
--- NOTE | 2019-11-26 17:04 | OP ---
DATE OF PROCEDURE: 11/25/2019 OPERATION: Left femur intramedullary nail and right tibial intramedullary nail. PREOPERATIVE DIAGNOSIS: Left subtrochanteric femur fracture and right distal tibia and fibular fracture. POSTOPERATIVE DIAGNOSIS: Left subtrochanteric femur fracture and right distal tibia and fibular fracture. COMPLICATIONS: None. ESTIMATED BLOOD LOSS: Minimal. MANAGER FINANCIAL PLANNING: Juan Taylor. IMPLANTS: Synthes trochanteric femoral nail size 380 mm x 11 mm, Synthes tibial nail size 330 mm x 12 mm. INDICATIONS: Ms. Holcomb is a 78-year-old female, who has fallen and fractured her left femur as well as right tibia. She has been indicated for intramedullary nail fixation to restore anatomic alignment and promote healing and prevent complications of prolonged bedrest. Risks have been reviewed in detail. She has elected to proceed with the operation. DESCRIPTION OF PROCEDURE: The patient was identified in the preoperative holding area. Her correct extremities were marked. She was given intravenous antibiotics. She was carried to the operating room. General anesthesia was induced. A multidisciplinary time-out was performed. The left lower extremity was prepped and draped in sterile fashion. We placed the patient in traction. We reduced the fracture. At this point, we made a small incision over the tip of the trochanter. We then inserted a guidewire at the tip of the trochanter working proximally and distally. At this point, we overdrilled the guidewire after confirming starting point with intraoperative x-ray. We then passed our ball-tipped guidewire from proximal to distal across the fracture. Again, we checked this with x-rays. We measured appropriate length. We then sequentially reamed from an 8.5 reamer up to a size 12 reamer. We then passed an 11 mm trochanteric nail. We placed a helical blade in the center position of the femoral head using appropriate guide and guidewire. We then used an intraoperative x-ray to place a distal Crosslock screw in perfect [place] technique. At this point, we took final images. We then thoroughly irrigated the wounds and closed appropriately in layers. We then moved to the right leg. The right leg was prepped and draped in sterile fashion. We then made a small incision over the anterior knee. We dissected down to the tibial plateau. We used intraoperative x-ray to obtain a starting point. We then passed our guidewire at the tibial plateau distally. We overdrilled the guidewire. We then placed our ball-tipped guidewire across the fracture site, taking care to centralize it distally. Again, we took x-ray images. Next, we reamed from a size 8.5 up to a size 13 reamer. We then passed a 12 mm nail. The nail was seated appropriately using x-ray. We placed 2 proximal Crosslock screws followed by 3 distal Crosslock screws. A final set of x-ray images was taken. We then thoroughly irrigated with copious lavage. We closed all wounds and placed a well-padded splint. The patient was taken to the recovery room in good condition without complication. Job ID: [id number]
[2019-11-26] MEDS ORDERED: Potassium Chloride 20 MEQ TAB PO SCH (17:45)
--- NOTE | 2019-11-26 19:47 | PRG ---
DATE OF SERVICE: 11/26/2019 SUBJECTIVE: The patient was seen during morning rounds with Dr. Hackett, awake, alert, crying in distress due to pain in bilateral lower extremities. The patient currently has a fentanyl CRIME SCENE TECHNICIAN pump, which is not controlling her pain. The patient states she was not able to sleep well last night due to the pain. The patient has multiple allergies, which causes her tongue to swell, which include Tylenol and Motrin. The patient confirmed that she is not allergic to morphine. The patient is tolerating a regular diet. Her urinary output is adequate for the patient's age and weight. The patient's pain increased after attempting to work with Physical Therapy this morning. OBJECTIVE: VITAL SIGNS: Temperature 97.8, pulse 87, respirations 16, SpO2 of 94% on room air, and blood pressure 125/72. GENERAL: Elderly female, in moderate distress due to pain. HEENT: Head is atraumatic and normocephalic. RESPIRATORY: Equal chest rise and fall, no respiratory distress. CARDIAC: Regular rate. Regular rhythm. EXTREMITIES: Right lower extremity splinted. Left extremity in a knee immobilizer. Neurovascularly intact x4, distal pulses intact. NEUROLOGIC: GCS 15, no focal deficits. LABORATORY DATA: WBC 8.0, RBC 2.75, hemoglobin 8.7, hematocrit 26.6, platelets 190. Sodium 128, potassium 3.3, chloride 92, BUN 18, creatinine 1.20, estimated GFR 43, glucose 96, calcium 6.4, phosphorus 4.3, magnesium 2.2, PTH 532, vitamin D 4.7. DIAGNOSTIC DATA: Left foot x-ray, impression, no acute osseous abnormalities. ASSESSMENT: 1. Status post fall from standing. 2. Distal tibia and fibular fracture, status post repair. 3. Proximal left femur fracture, status post repair. 4. Hypokalemia. 5. Hypomagnesemia, improved. 6. Hyponatremia. 7. Hypocalcemia. 8. Prolonged QT, likely related to hypomagnesemia and hypocalcemia. 9. Vitamin D insufficiency. 10. History of arthritis, hypertension, chronic pain, diverticulitis, depression, and anxiety. PLAN: Continue supportive care. Replace electrolytes. High-dose vitamin D 6000 daily for 6-8 weeks for vitamin D insufficiency. We will discontinue the patient's fentanyl CRIME SCENE TECHNICIAN as it is not controlling her pain. We will schedule tramadol and have morphine for breakthrough. We will place the patient on a free water restriction for her hyponatremia. Physical and occupational therapy. Rehab screen has been placed. The plan was discussed with the patient who agrees. The patient was examined by Dr. Hackett during morning rounds. Job ID: [id number]
[2019-11-26] MEDS: Atorvastatin Calcium 10 MG TAB PO SCH (20:17)
[2019-11-26] MEDS ORDERED: Cyclobenzaprine 10 MG TAB PO PRN (23:05)
[2019-11-26] MEDS ORDERED: Naloxone HCl 0.4 mg/ml Vial IV PRN (23:10)
[2019-11-26] MEDS ORDERED: Ondansetron PF 4 MG/2 ML Vial IVP PRN (23:10)
[2019-11-26] MEDS ORDERED: HYDROmorphone 10 mg/100 ml CADD IV PRN (23:10)
[2019-11-26] MEDS ORDERED: Promethazine HCl 25 MG/ML VIAL IM PRN (23:10)
[2019-11-26] MEDS ORDERED: diphenhydrAMINE 25 MG CAP PO PRN (23:10)
[2019-11-26] MEDS ORDERED: diphenhydrAMINE 50 MG/ML VIAL IM/IV PRN (23:10)
[2019-11-26] MEDS ORDERED: Cyclobenzaprine 10 MG TAB PO SCH (23:15)
--- NOTE | 2019-11-27 01:58 | PRG ---
DATE OF SERVICE: 11/26/2019 SUBJECTIVE: Patient was seen this evening during rounds. She was sitting up in bed, resting comfortably and asleep with no signs of acute distress. Later in the evening, the nurse called reporting that patient was having 10/10 pain, not resolved by IV morphine. OBJECTIVE: VITAL SIGNS: Temperature 98.5, pulse 105, respirations 18, oxygen saturation 95% on room air, and blood pressure 122/54. GENERAL: Well-appearing elderly female, lying in bed, asleep, with no signs of acute distress. PULMONARY: Equal chest rise and fall. No signs of acute respiratory distress. ASSESSMENT: 1. Status post fall from standing. 2. Left femoral neck fracture. 3. Right distal tib-fib fracture. 4. Acute kidney injury, stable. 5. Acute hypokalemia, improving. 6. Acute hypomagnesemia, resolved. 7. Vitamin D insufficiency. 8. History of arthritis, hypertension, chronic pain, diverticulitis, depression, and anxiety. PLAN: Continue current diet. We will discontinue the patient's morphine and tramadol and start her on a Dilaudid TRAFFIC DIVISION COMMANDING OFFICER for better pain control. Patient is allergic to Tylenol and NSAIDs. Discontinue morphine. Discontinue Jean in the morning. Trauma to revaluate patient's compartment and pulses this evening after this note. Job ID: [id number]
[2019-11-27] MEDS: Calcium Carbonate 500 MG ChewTAB PO PRN (04:20)
[2019-11-27 05:15] LABS: #Lymphocytes 1.9 thou/uL (1.20-3.40); #Neutrophils 6.9 thou/uL (1.40-6.50); %Basophils 0.4 % (0.0-1.0); %Eosinophils 0.5 % (0.0-10.0); %Monocytes 10.1 % (0.0-10.0); %Neutrophils 70.1 % (42.0-75.0); Hemoglobin 6.8 g/dL (12.0-16.0); Mean Corpuscular HGB CONC 32.5 g/dL (32.0-36.0); Mean Corpuscular Hemoglobin 31.7 pg (27.0-31.0); Mean Corpuscular Volume 97.5 fL (78.0-98.0); Platelet Count 188 thou/uL (130-400); RBC Distribution Width 12.1 % (11.5-14.5); Red Blood Cell (RBC) Count 2.15 mill/uL (4.20-5.40); White Blood Cell (WBC) Count 9.9 thou/uL (4.8-10.8)
[2019-11-27 06:17] LABS: Anion Gap 12 mmol/L (10-20); BUN (Urea Nitrogen) 22 mg/dL (9.8-20.1); Calc. Creatinine Clearance 42 mL/min (70-130); Calcium 7.6 mg/dL (7.8-10.44); Carbon Dioxide 23 mmol/L (23-31); Chloride 98 mmol/L (98-107); Estimated GFR-MDRD 40; Glucose 131 mg/dL (83-110); Magnesium 1.7 mg/dL (1.6-2.6); Phosphorus 2.8 mg/dL (2.3-4.7); Potassium 4.5 mmol/L (3.5-5.1); Sodium 128 mmol/L (136-145)
[2019-11-27] MEDS: Gabapentin 300 MG CAP PO SCH ×2 (08:05→21:05)
[2019-11-27] MEDS: Cholecalciferol 1,000 UNITS (25 MCG) TAB PO SCH (08:06)
[2019-11-27] MEDS: Senokot S 8.6-50 MG TAB PO SCH ×2 (08:06→21:05)
[2019-11-27] MEDS: Famotidine 20 MG TAB PO SCH (08:08)
[2019-11-27] MEDS: Calcium Carbonate 600 MG + Vit D TAB PO SCH ×2 (08:08→17:29)
[2019-11-27] MEDS: Polyethylene Glycol 3350 17 GM Packet PO SCH (08:09)
[2019-11-27] MEDS ORDERED: Magnesium 2 GM/50 ML 2 GM in Premix Bag 1 BAG IVPB SCH (09:30)
[2019-11-27] MEDS ORDERED: Calcium Chloride 13.6 MEQ in Sodium Chloride 0.9% 100 ML IVPB SCH (09:30)
--- NOTE | 2019-11-27 14:46 | PRG ---
DATE OF SERVICE: 11/27/2019 SUBJECTIVE: Checking in on the patient this morning after her left femur and right tibia repair, she is doing okay. Her blood count was a little low today. Her hemoglobin and hematocrit were 6.8 and 20.9. Trauma seen the patient and given her some blood. She has also been encouraged to use her incentive spirometry. Overall, other than feeling tired and a little bit fatigue, she feels okay. She has not done much with physical therapy yet due to her tiredness and she was on a FRUIT GROWER for pain control. Diet, she is eating a little bit and it has progressed since her surgery, but we have encouraged her to eat a little bit more. OBJECTIVE: VITAL SIGNS: Stable. Pulse 110, temperature 99.4. NEUROLOGIC: Speech clear. She is oriented. EXTREMITIES: Bilateral lower extremity dressings are clean, dry, intact. She is moving both lower extremities fairly well. The right a little bit better than the left. Sensations are good as are pulses. Currently, she has blood running and she has no other complaints. LABORATORY DATA: Hemoglobin and hematocrit 6.8 and 20.9. ASSESSMENT: 1. Stable. 2. Postoperative anemia. PLAN: Again Trauma following, treating her medical issues, gave her 1 unit of blood. Hemoglobin and hematocrit will be drawn after this. We will continue to check on her throughout her hospital stay and possibly change her dressings in the next few days. Encouraged incentive spirometry. Increasing diet. Case management also on the patient's case. Job ID: [id number]
--- NOTE | 2019-11-27 14:51 | PRG ---
DATE OF SERVICE: 11/27/2019 SUBJECTIVE: Ms. Holcomb is a 78-year-old female, postop day #2, hospital day #2, status post fall with left femur fracture, right distal tib-fib fracture, CONNOR, hypokalemia, multiple electrolyte abnormalities, prolonged QT, and vitamin D insufficiency, has had difficulty with pain control, worsening by limitations given her allergies to acetaminophen and ibuprofen. The patient is now on a Dilaudid RIGGER UP. She is somewhat sedated, however, with stable vital signs including SpO2 and respiratory status. On her exam, has not worked well with Physical Therapy. She did have a borderline fever at 100.3 on morning rounds today. She is receiving 1 PRBC this morning for hemoglobin of 6.8, had a 2 g drop. Mild hypotension and tachycardia are appreciated. She is on free water restriction. She has been supplemented with vitamin as this was noted to be low as well as her PTH elevated. OBJECTIVE: VITAL SIGNS: Temperature is 100.3, blood pressure 106/67, heart rate is 98, respiratory rate is 14, saturating 95% on 2 L of oxygen nasal cannula. GENERAL: A 78-year-old female, sitting up, pink hair, in no acute distress. HEENT: Normocephalic, atraumatic. Trachea is midline. No JVD is appreciated. RESPIRATORY: Equal rise and fall. CARDIOVASCULAR: Newly tachycardic rhythm. Does have strong pulses. ABDOMEN: Soft. EXTREMITIES: She has splints noted to the right distal and has surgical site to the left lower extremity. She is able to move her extremities well. PSYCH: Normal mood, affect. NEURO: Alert and ordered to person, place, time, and event. DIAGNOSTIC CRITERIA: Today, sodium 128, potassium 4.5, chloride is 98, CO2 is 23, BUN is 22, creatinine is 1.3, glucose is 131, calcium is 7.6 and uncorrected, phosphorus is 2.8, magnesium is 1.7. White blood cell count is 9.9, platelets are 188. Hemoglobin and hematocrit are 6.8 and 20.9 respectively. ASSESSMENT AND PLAN: 1. Status post fall from standing. 2. Right distal tib-fib fracture, status post open reduction and internal fixation. 3. Proximal left femur fracture, status post open reduction and internal fixation. 4. Hypokalemia, resolved. 5. Hypomagnesemia, on replacement now. 6. Hyponatremia, on free water deficit. 7. Hypocalcemia, being replaced. 8. Acute blood loss anemia, needing blood transfusion. 9. Prolonged QT, could be secondary to electrolyte abnormality. 10. Vitamin D deficiency, on replacement. 11. Acute traumatic pain. 12. History of arthritis, hypertension, chronic pain, diverticulitis, depression and anxiety. PLAN: 1. We will stop the Dilaudid RIGGER UP. 2. Start oxycodone. 3. Continue twice daily gabapentin. 4. Encourage PT. 5. Continue vitamin D. 6. Check TSH. 7. Remove Jean now. 8. Rehab screen is in place, awaiting for further. 9. Encouraged IS, only getting just over a 1000 right now and believe that her low-grade fever is likely atelectasis. 10. Encourage movement and cough. 11. We will monitor fever curve. 12. Continue all other supportive care. Awaiting case management plan for rehab placement. However, need to keep the patient overnight tonight to monitor electrolytes and blood levels. Updated the patient, coordinated with the bedside RN. The patient was seen by Dr. Kofi Hackett and can be updated as needed. Job ID: [id number]
[2019-11-27] MEDS ORDERED: Gabapentin 300 MG CAP PO SCH (15:00)
[2019-11-27] MEDS: oxyCODONE 5 MG TAB PO SCH ×2 (15:57→21:04)
[2019-11-27] MEDS: Atorvastatin Calcium 10 MG TAB PO SCH (21:05)
--- NOTE | 2019-11-28 01:12 | PRG ---
DATE OF SERVICE: 11/27/2019 SUBJECTIVE: This is a 78-year-old female, postop day 2, hospital day 2, status post fall resulting in left femur fracture and right distal tib-fib fracture. The patient has multiple medical comorbidities. She is status post PRBC transfusion. Upon my evaluation this evening, she is sleeping. Her pain medications were adjusted earlier today. Bedside nurse does report that the patient did have urinary retention earlier this evening requiring I and O cath x1. She is due to void within the next 2 hours. OBJECTIVE: VITAL SIGNS: The patient is borderline febrile with T-max 100.6 in the past 24 hours. Pulse 98, respirations 18, O2 saturation 95% on room air, blood pressure 119/72. GENERAL: Elderly-appearing female, in no acute distress, resting in bed. Appears to be breathing comfortably. LABORATORY FINDINGS: No new laboratory findings. ASSESSMENT: As documented in the progress note dated 11/27/2019. PLAN: Continue supportive care as ordered. Re-evaluate patient's pain management tomorrow. Followup patient's voiding status. Continue to monitor fever curves. A.m. labs. Job ID: [id number]
[2019-11-28] MEDS: oxyCODONE 5 MG TAB PO SCH ×3 (01:14→14:18)
[2019-11-28 07:09] LABS: #Eosinphils 0.1 thou/uL (0.0-0.7); #Monocytes 1.3 thou/uL (0.11-0.59); #Neutrophils 7.5 thou/uL (1.40-6.50); %Basophils 0.3 % (0.0-1.0); %Eosinophils 0.8 % (0.0-10.0); %Monocytes 11.9 % (0.0-10.0); %Neutrophils 68.9 % (42.0-75.0); Hemoglobin 8.3 g/dL (12.0-16.0); Mean Corpuscular HGB CONC 32.4 g/dL (32.0-36.0); Mean Corpuscular Hemoglobin 31.3 pg (27.0-31.0); Mean Corpuscular Volume 96.5 fL (78.0-98.0); Mean Platelet Volume 8.6 fL (7.4-10.4); Platelet Count 200 thou/uL (130-400); RBC Distribution Width 12.8 % (11.5-14.5); Red Blood Cell (RBC) Count 2.65 mill/uL (4.20-5.40); White Blood Cell (WBC) Count 10.9 thou/uL (4.8-10.8)
[2019-11-28 07:37] LABS: Anion Gap 12 mmol/L (10-20); BUN (Urea Nitrogen) 19 mg/dL (9.8-20.1); Calc. Creatinine Clearance 46 mL/min (70-130); Calcium 7.8 mg/dL (7.8-10.44); Carbon Dioxide 20 mmol/L (23-31); Chloride 102 mmol/L (98-107); Estimated GFR-MDRD 44; Glucose 122 mg/dL (83-110); Phosphorus 2.7 mg/dL (2.3-4.7); Sodium 128 mmol/L (136-145)
[2019-11-28] MEDS: Polyethylene Glycol 3350 17 GM Packet PO SCH (09:47)
[2019-11-28] MEDS: Cholecalciferol 1,000 UNITS (25 MCG) TAB PO SCH (09:48)
[2019-11-28] MEDS: Famotidine 20 MG TAB PO SCH (09:50)
[2019-11-28] MEDS: Calcium Carbonate 600 MG + Vit D TAB PO SCH ×2 (09:50→16:43)
[2019-11-28] MEDS: Senokot S 8.6-50 MG TAB PO SCH (09:50)
[2019-11-28] MEDS: Gabapentin 300 MG CAP PO SCH (09:50)
--- NOTE | 2019-11-28 10:06 | RAD ---
XR Chest 1 View HISTORY: Chest pain COMPARISON: 11/25/2019 FINDINGS: The heart size is prominent but stable. The aorta is tortuous. The lungs are well expanded without focal areas of consolidation, pneumothorax or pleural effusions. Chronic parenchymal changes again seen. IMPRESSION: No radiographic evidence of acute cardiopulmonary process.
[2019-11-28] MEDS ORDERED: Morphine 2 MG/ML VIAL SLOW IVP SCH (11:15)
--- NOTE | 2019-11-28 11:43 | EKG ---
Test Reason : Blood Pressure : / mmHG Vent. Rate : 101 BPM Atrial Rate : 101 BPM P-R Int : 162 ms QRS Dur : 070 ms QT Int : 322 ms P-R-T Axes : 071 007 051 degrees QTc Int : 417 ms Sinus tachycardia Otherwise normal ECG When compared with ECG of 25-NOV-2019 12:52, (Unconfirmed) QT has shortened Confirmed by NELIA CATHERINE M.D. ([id number] on 11/28/2019 11:42:50 AM Referred By: PHILIP CASTILLO Confirmed By:NELIA CATHERINE M.D.
--- NOTE | 2019-11-28 14:07 | DIS ---
DATE OF ADMISSION: 11/25/2019 DATE OF DISCHARGE: 11/28/2019 ATTENDING PHYSICIAN: Kofi Hackett DO ADMITTING DIAGNOSES: 1. Status post fall from standing. 2. Distal tibia and fibula fracture. 3. Proximal left femur fracture. 4. Hypokalemia. 5. Hypomagnesemia. 6. Hyponatremia. 7. Hypocalcemia. 8. Acute kidney injury. 9. History of arthritis. 10. Hypertension. 11. Chronic pain. 12. Diverticulosis. 13. Peripheral neuropathy. 14. Depression. 15. Anxiety. DISCHARGE DIAGNOSES: 1. Status post fall from standing. 2. Right distal tibia fibula fracture, status post open reduction and internal fixation. 3. Proximal left femur fracture, status post open reduction and internal fixation. 4. Prolonged QT. 5. Vitamin D deficiency, on replacement therapy. 6. Acute traumatic pain secondary to above injuries. 7. History of chronic medical problems as stated above. CONSULTING PHYSICIANS: Orthopedics, Dr. Rip Maharaj. PROCEDURES PERFORMED: 1. Open reduction and internal fixation of right distal tibia fibula fracture. 2. Open reduction and internal fixation of proximal left femur fracture. HOSPITAL COURSE: The patient is a 78-year-old female who previously lived at an assisted living apartment at [facility]. The patient was ambulating in her home on November 25, 2019 when she felt both of her legs buckle, causing her to fall to the ground. The patient was brought to the emergency room where she was found to have a displaced fracture of the proximal diaphysis of the left femur. She was also found to have a fracture of the right tibia and fibula distally. Her right hip prosthesis appeared to be adequately positioned with no apparent fracture of the right femur. The patient was admitted to the surgical floor, and Orthopedic Surgery, Dr. Maharaj was consulted. He took the patient to the operating room later that day for repair of orthopedic injuries. The patient was ultimately moved after surgery back to the surgical unit. Physical Therapy and Occupational Therapy worked with the patient throughout her stay, and she was evaluated for rehab, approved for discharge to rehab on November 28, 2019. Pain control was eventually achieved with oxycodone p.o. medication. Of note during this hospitalization, the patient was noted to have a low vitamin D level of 4.7 and an elevated PTH level of 532. She was subsequently started on vitamin D supplementation of 6000 units per day. DISCHARGE PHYSICAL EXAMINATION: On day of discharge, VITAL SIGNS: Temperature 99.0 Fahrenheit, pulse 98, respirations 16, SpO2 of 96% on room air, and blood pressure 107/68. GENERAL: A 78-year-old female, lying in bed, no signs of acute distress. HEENT: Normocephalic, atraumatic. RESPIRATORY: Equal chest rise and fall. No acute respiratory distress. Good inspiratory and expiratory effort. CARDIOVASCULAR: Regular rate, regular rhythm. ABDOMEN: Soft, nontender, nondistended. EXTREMITIES: Splints in place on right lower extremity. Surgical site clean and dry of left lower extremity. NEUROLOGIC: GCS 15. Alert and oriented x3. LABORATORY DATA: On date of discharge, sodium 128, potassium 6.0, chloride 102, carbon dioxide 20, BUN 19, creatinine 1.19, estimated GFR 44, glucose 122, calcium 7.8, phosphorus 2.7, magnesium 2.0. WBC 10.9, RBC 2.65, hemoglobin 8.3, hematocrit 25.6, and platelets 200. RADIOGRAPHIC DATA: No radiographic data postoperatively. MEDICATIONS AT DISCHARGE: 1. Furosemide 40 mg p.o. daily. 2. Amlodipine 10 mg p.o. daily. 3. Benazepril 40 mg p.o. daily. 4. Tramadol 100 mg p.o. q.6 hours p.r.n. 5. Temazepam 7.5 mg p.o. at bedtime p.r.n. 6. Atorvastatin 10 mg p.o. at bedtime. 7. Calcium carbonate and vitamin D 1500 mg and 400 units tablets one tablet p.o. b.i.d. with meals. 8. Flexeril 10 mg p.o. t.i.d. p.r.n. 9. MiraLAX 17 g p.o. daily. 10. Oxycodone immediate release 10 mg p.o. q.6 hours. 11. Senokot two tabs p.o. b.i.d. 12. Tums 1000 mg p.o. p.r.n. 13. Vitamin D3 6000 units p.o. daily. 14. Gabapentin 300 mg p.o. t.i.d. FOLLOWUP: Follow up with Dr. Maharaj in 2 weeks. Follow up with primary care physician in 2 weeks. Discharged to inpatient rehab. No followup needed with Dr. Hackett's clinic. The patient was seen by Dr. Hackett this morning during rounds. Job ID: [id number] MTDD
[2019-11-28 14:55] LABS: Anion Gap 15 mmol/L (10-20); BUN (Urea Nitrogen) 19 mg/dL (9.8-20.1); Calc. Creatinine Clearance 46 mL/min (70-130); Calcium 8.3 mg/dL (7.8-10.44); Carbon Dioxide 18 mmol/L (23-31); Chloride 102 mmol/L (98-107); Estimated GFR-MDRD 44; Glucose 108 mg/dL (83-110); Potassium 5.4 mmol/L (3.5-5.1); Sodium 130 mmol/L (136-145)
[2019-11-28] MEDS ORDERED: Gabapentin 300 MG CAP PO SCH (15:00)
[2019-11-28 16:14] LABS: Bacteria/HPF None Seen HPF (None Seen); Bilirubin Negative (Negative); Blood, Urine Negative (Negative); Clarity Clear (Clear); Glucose, Urine (Dipstick) Normal (Negative); Ketone, Urine Negative (Negative); Leukocyte Negative Leu/uL (Negative); Nitrite Negative (Negative); Protein, Urine (Dipstick) 30 mg/dL (Neg-Trace); RBC/HPF 0-3 HPF (0-3); Squamous Epithelial 0-3 HPF (0-3); Urobilinogen Normal mg/dL (Less than 2); WBC/HPF 0-3 HPF (0-3)
[2019-11-28 16:37] LABS: Troponin I 0.043 ng/mL (< 0.028)
[2019-11-28 17:07] VITALS: BP 123/59; TEMP 98
== END 2019-11-28 17:08 | DRG 480 ==
LOC: ERS 11:47 → SDC/OP 14:05 → SJJU 17:00
PROVIDERS: ADMIT Specialist; ATTEND Specialist
PROC: 0QH736Z Insertion of Intramedullary Internal Fixation Device into Left Upper Femur, Percutaneous Approach (ICD-10-PCS; principal; 2019-11-25)
PROC: 0QHH36Z Insertion of Intramedullary Internal Fixation Device into Left Tibia, Percutaneous Approach (ICD-10-PCS; 2019-11-25)
PROC: 30233N1 Transfusion of Nonautologous Red Blood Cells into Peripheral Vein, Percutaneous Approach (ICD-10-PCS; 2019-11-25)
DX: S82.202A Unspecified fracture of shaft of left tibia, initial encounter for closed fracture (principal); S72.22XA Displaced subtrochanteric fracture of left femur, initial encounter for closed fracture; E87.1 Hypo-osmolality and hyponatremia; N17.9 Acute kidney failure, unspecified; D62 Acute posthemorrhagic anemia; J98.11 Atelectasis; W18.30XA Fall on same level, unspecified, initial encounter; S82.402A Unspecified fracture of shaft of left fibula, initial encounter for closed fracture; Z20.828 Contact with and (suspected) exposure to other viral communicable diseases; M19.90 Unspecified osteoarthritis, unspecified site; I10 Essential (primary) hypertension; F41.9 Anxiety disorder, unspecified; F32.9 Major depressive disorder, single episode, unspecified; E87.6 Hypokalemia; E83.42 Hypomagnesemia; E83.51 Hypocalcemia; E55.9 Vitamin D deficiency, unspecified; Z88.0 Allergy status to penicillin; Z88.1 Allergy status to other antibiotic agents; Z88.8 Allergy status to other drugs, medicaments and biological substances; Z79.899 Other long term (current) drug therapy; Z98.51 Tubal ligation status; Z90.49 Acquired absence of other specified parts of digestive tract; I45.81 Long QT syndrome; R33.9 Retention of urine, unspecified; G62.9 Polyneuropathy, unspecified
CPT/HCPCS: 27502; 27752; 36415; 36430; 71045; 72170; 76000; 80048; 80053; 81001; 82306; 82550; 83735; 83970; 84100; 84443; 84484; 85025; 85027; 86850; 86900; 86901; 93005; 93010; 96374; 96376; C1713; C1769; J1100; J1200; J1956; J2270; J2370; J2405; J2704; J3010; J3475; J3480; J3490; J7050; P9016; U0002

== ENCOUNTER 2020-02-05 06:47 | Emergency (ER) | payer MEDICARE, OTHER ==
[2020-02-05] MEDS ORDERED: Morphine 4 MG/ML VIAL ONE ×2 (06:56→08:36)
[2020-02-05 07:43] LABS: #Basophils 0.1 thou/uL (0.0-0.2); #Eosinphils 0.2 thou/uL (0.0-0.7); #Lymphocytes 2.1 thou/uL (1.20-3.40); #Monocytes 0.4 thou/uL (0.11-0.59); #Neutrophils 9.7 thou/uL (1.40-6.50); %Basophils 0.4 % (0.0-1.0); %Eosinophils 1.4 % (0.0-10.0); %Lymphocytes 17.1 % (21.0-51.0); %Monocytes 3.2 % (0.0-10.0); %Neutrophils 77.9 % (42.0-75.0); Hemoglobin 11.5 g/dL (12.0-16.0); Mean Corpuscular HGB CONC 32.7 g/dL (32.0-36.0); Mean Corpuscular Hemoglobin 29.8 pg (27.0-31.0); Mean Corpuscular Volume 91.2 fL (78.0-98.0); Mean Platelet Volume 7.5 fL (7.4-10.4); Platelet Count 447 thou/uL (130-400); RBC Distribution Width 13.1 % (11.5-14.5); Red Blood Cell (RBC) Count 3.85 mill/uL (4.20-5.40); White Blood Cell (WBC) Count 12.5 thou/uL (4.8-10.8)
--- NOTE | 2020-02-05 07:55 | CT ---
CT pelvis noncontrast HISTORY: Fall. Injury. FINDINGS: Cortical remodeling of the coccygeal segments has the appearance of an old healed fracture. No acute fractures are apparent. Sacrum is intact. Right hip prosthesis and internal fixation of left hip/femur partially visualized. The femoral shaft fracture is partially visualized with surrounding callus formation. No acute fractures are evident. There are degenerative changes of the hips, lower lumbar spine, and sacroiliac joints. Lack of contrast limits evaluation of the soft tissues. The superiormost images show fluid and gas di stention of small bowel up to 3.1 cm. Other small bowel loops within the lower pelvis are completely decompressed. Diverticula arise from the sigmoid colon without adjacent inflammation. Most of the colon is not visi ble. IMPRESSION : Healed and healing fractures of the coccyx and left femur. No acute fractures evident. Within the partially visualized abdomen, proximal mildly date dilated small bowel loops are present w ith decompressed distal small bowel. Clinical correlation regarding obstructive symptoms is required. Diverticulosis. No evidence of diverticulitis.
--- NOTE | 2020-02-05 07:57 | RAD ---
EXAM: XR Chest 1 View Portable PROVIDED CLINICAL HISTORY: Syncope COMPARISON: 12/03/2019 FINDINGS: Cardiac silhouette appears enlarged, which may be least partially on the basis of portable technique. Vascular calcification is noted involving the aortic arch. Interstitial opacities demonstrated involving the right upper lung zone on the prior examination appear less conspicuous. No lobar consol idation, pleural fluid or pneumothorax apparent. IMPRESSION: Decreased conspicuity to right upper lung zone parenchymal opacity. Continued follow-up recommended.
[2020-02-05 08:17] LABS: ALT (SGPT) 9 U/L (8-55); AST (SGOT) 11 U/L (5-34); Albumin 3.3 g/dL (3.4-4.8); Alkaline Phosphatase 214 U/L (40-110); Anion Gap 16 mmol/L (10-20); BUN (Urea Nitrogen) 8 mg/dL (9.8-20.1); Bilirubin, Total 0.3 mg/dL (0.2-1.2); CK (CPK) 40 U/L (29-168); Calc. Creatinine Clearance 0 mL/min (70-130); Calcium 8.7 mg/dL (7.8-10.44); Carbon Dioxide 18 mmol/L (23-31); Chloride 109 mmol/L (98-107); Estimated GFR-MDRD 65; Globulin 3.6 g/dL (2.4-3.5); Glucose 99 mg/dL (83-110); Lipase Less than 4 U/L (8-78); Potassium 3.5 mmol/L (3.5-5.1); Protein, Total 6.9 g/dL (6.0-8.3); Sodium 139 mmol/L (136-145)
[2020-02-05] MEDS ORDERED: Ondansetron PF 4 MG/2 ML Vial ONE (08:41)
[2020-02-05] MEDS ORDERED: Promethazine HCl 25 MG/ML VIAL ONE (09:15)
--- NOTE | 2020-02-05 10:36 | CT ---
EXAM: CT Abdomen Pelvis W Con PROVIDED CLINICAL HISTORY: Abdominal pain COMPARISON: CT pelvis performed earlier same date CT abdomen and pelvis 08/05/2017 FINDINGS: Trace right pleural fluid. Visualized lung parenchyma is free of significant opacity. There is a small hiatal hernia. The liver, spleen, pancreas, kidneys and adrenal glands demonstrate an unremarkable CT appearance. There is no evidence for bowel obstruction. Sigmoid colonic diverticulosis is demonstrated without ev idence for diverticulitis. No inflammatory fat stranding, free fluid or free air apparent. Portions of the pelvis are obscured by beam hardening artifact from bilateral hip arthroplasties. Vascular calcification is demonstrated. 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 The osseous structures demonstrate no concerning lytic or blastic lesions. IMPRESSION: No evidence for an acute process. Chronic findings as above.
[2020-02-05 10:40] LABS: Bilirubin Negative (Negative); Blood, Urine Negative (Negative); Clarity Clear (Clear); Glucose, Urine (Dipstick) Normal (Negative); Ketone, Urine Negative (Negative); Leukocyte Negative Leu/uL (Negative); Nitrite Negative (Negative); Protein, Urine (Dipstick) Negative (Neg-Trace); Urobilinogen Normal mg/dL (Less than 2); pH, Urine 6.5 (5.0-9.0)
[2020-02-05] MEDS ORDERED: Iopamidol 370 76% 100 ML VIAL ONE (12:54)
[2020-02-05] MEDS ORDERED: Iopamidol 370 76% 50 ML VIAL FS ONE (12:54)
== END 2020-02-05 13:02 | disposition home or self-care (01) ==
LOC: ERS 06:47
DX: R10.2 Pelvic and perineal pain (principal); M54.9 Dorsalgia, unspecified; G89.29 Other chronic pain; I10 Essential (primary) hypertension; M19.90 Unspecified osteoarthritis, unspecified site; F41.9 Anxiety disorder, unspecified; F32.9 Major depressive disorder, single episode, unspecified; Z79.899 Other long term (current) drug therapy
CPT/HCPCS: 71045; 72192; 74177; 80053; 81003; 82550; 83690; 83880; 84484; 85025; 93005; 96374; 96375; 96376; J2270; J2405; J2550; Q9967

== ENCOUNTER 2020-02-08 12:19 | Emergency (ER) | payer MEDICARE, OTHER ==
[2020-02-08] MEDS ORDERED: Morphine 4 MG/ML VIAL ONE ×2 (13:16→16:19)
[2020-02-08] MEDS ORDERED: Ondansetron PF 4 MG/2 ML Vial ONE (13:16)
[2020-02-08 13:23] LABS: #Eosinphils 0.1 thou/uL (0.0-0.7); #Lymphocytes 1.6 thou/uL (1.20-3.40); #Monocytes 0.6 thou/uL (0.11-0.59); #Neutrophils 7.5 thou/uL (1.40-6.50); %Basophils 0.3 % (0.0-1.0); %Eosinophils 1.2 % (0.0-10.0); %Lymphocytes 16.6 % (21.0-51.0); %Monocytes 5.8 % (0.0-10.0); Hemoglobin 10.8 g/dL (12.0-16.0); Mean Corpuscular HGB CONC 31.8 g/dL (32.0-36.0); Mean Corpuscular Hemoglobin 29.1 pg (27.0-31.0); Mean Corpuscular Volume 91.6 fL (78.0-98.0); Mean Platelet Volume 7.5 fL (7.4-10.4); Platelet Count 387 thou/uL (130-400); RBC Distribution Width 13.6 % (11.5-14.5); Red Blood Cell (RBC) Count 3.72 mill/uL (4.20-5.40); White Blood Cell (WBC) Count 9.9 thou/uL (4.8-10.8)
[2020-02-08 13:41] LABS: ALT (SGPT) 7 U/L (8-55); AST (SGOT) 10 U/L (5-34); Albumin 3.1 g/dL (3.4-4.8); Alkaline Phosphatase 199 U/L (40-110); Anion Gap 14 mmol/L (10-20); BUN (Urea Nitrogen) 9 mg/dL (9.8-20.1); Bilirubin, Total 0.3 mg/dL (0.2-1.2); Calc. Creatinine Clearance 0 mL/min (70-130); Calcium 8.2 mg/dL (7.8-10.44); Carbon Dioxide 21 mmol/L (23-31); Chloride 104 mmol/L (98-107); Estimated GFR-MDRD 65; Globulin 3.2 g/dL (2.4-3.5); Glucose 105 mg/dL (83-110); Potassium 3.3 mmol/L (3.5-5.1); Protein, Total 6.3 g/dL (6.0-8.3); Sodium 136 mmol/L (136-145)
[2020-02-08 14:21] LABS: Bacteria/HPF None Seen HPF (None Seen); Bilirubin Negative (Negative); Blood, Urine Trace (Negative); Clarity Clear (Clear); Glucose, Urine (Dipstick) Normal (Negative); Ketone, Urine Negative (Negative); Leukocyte Negative Leu/uL (Negative); Nitrite Negative (Negative); Protein, Urine (Dipstick) Negative (Neg-Trace); RBC/HPF 0-3 HPF (0-3); Specific Gravity, Urine 1.007 (1.002-1.036); Squamous Epithelial 0-3 HPF (0-3); Urobilinogen Normal mg/dL (Less than 2); WBC/HPF 0-3 HPF (0-3); pH, Urine 7.5 (5.0-9.0)
== END 2020-02-08 19:35 ==
LOC: ERS 12:19
DX: R10.2 Pelvic and perineal pain (principal); I10 Essential (primary) hypertension; M19.90 Unspecified osteoarthritis, unspecified site; F41.9 Anxiety disorder, unspecified; F32.9 Major depressive disorder, single episode, unspecified
CPT/HCPCS: 36415; 51701; 80053; 81003; 81015; 85025; 96374; 96375; 96376; J2270; J2405

== ENCOUNTER 2020-03-09 23:08 | Emergency (ER) | payer MEDICARE, OTHER ==
[2020-03-10] MEDS ORDERED: Acetaminophen 500 MG TAB ONE (01:15)
--- NOTE | 2020-03-10 07:42 | RAD ---
XR Femur Rt 2 View STANDARD History: Injury Comparison: Radiograph November 2019 Findings: Intact right hip hardware. Right obturator ring is intact. No femur fracture. No significant knee joint effusion. Moderate chondrocalcinosis of the menisci. Intramedullary nail through the tibia. Stress remodeling along lateral margin proximal femoral metaphysis. Impression: No acute right femur fracture.
== END 2020-03-10 01:25 | disposition home or self-care (01) ==
LOC: ERS 23:08
DX: M25.551 Pain in right hip (principal); I10 Essential (primary) hypertension; M19.90 Unspecified osteoarthritis, unspecified site; X50.1XXA Overexertion from prolonged static or awkward postures, initial encounter

== ENCOUNTER 2020-04-03 11:04 | Emergency (ER) | payer MEDICARE, OTHER ==
[2020-04-03] MEDS ORDERED: Fentanyl 100 MCG/2 ML VIAL ONE ×2 (11:52→18:15)
[2020-04-03] MEDS ORDERED: Ondansetron ODT 4 MG TAB ONE (11:53)
[2020-04-03 14:07] LABS: #Eosinphils 0.2 thou/uL (0.0-0.7); #Lymphocytes 1.7 thou/uL (1.20-3.40); #Monocytes 0.6 thou/uL (0.11-0.59); #Neutrophils 7.1 thou/uL (1.40-6.50); %Basophils 0.4 % (0.0-1.0); %Eosinophils 1.6 % (0.0-10.0); %Lymphocytes 17.9 % (21.0-51.0); %Monocytes 6.6 % (0.0-10.0); %Neutrophils 73.5 % (42.0-75.0); Hemoglobin 10.8 g/dL (12.0-16.0); Mean Corpuscular HGB CONC 32.6 g/dL (32.0-36.0); Mean Corpuscular Hemoglobin 30.2 pg (27.0-31.0); Mean Corpuscular Volume 92.6 fL (78.0-98.0); Mean Platelet Volume 7.5 fL (7.4-10.4); Platelet Count 353 thou/uL (130-400); RBC Distribution Width 15.3 % (11.5-14.5); Red Blood Cell (RBC) Count 3.59 mill/uL (4.20-5.40); White Blood Cell (WBC) Count 9.6 thou/uL (4.8-10.8)
[2020-04-03 14:30] LABS: ALT (SGPT) Less than 7 U/L (8-55); AST (SGOT) 13 U/L (5-34); Albumin 3.2 g/dL (3.4-4.8); Alkaline Phosphatase 263 U/L (40-110); Anion Gap 15 mmol/L (10-20); BUN (Urea Nitrogen) 9 mg/dL (9.8-20.1); Bilirubin, Total 0.5 mg/dL (0.2-1.2); Calc. Creatinine Clearance 0 mL/min (70-130); Calcium 8.6 mg/dL (7.8-10.44); Carbon Dioxide 22 mmol/L (23-31); Chloride 102 mmol/L (98-107); Globulin 3.5 g/dL (2.4-3.5); Glucose 75 mg/dL (83-110); Potassium 3.8 mmol/L (3.5-5.1); Protein, Total 6.7 g/dL (6.0-8.3); Sodium 135 mmol/L (136-145)
--- NOTE | 2020-04-03 14:39 | RAD ---
SACRUM AND COCCYX: 04/03/20 INDICATIONS: Sacral pain, fall. FINDINGS: No definite fracture seen in the lateral projection. Prominent degenerative changes in the lumbar spi ne and lumbosacral region. Sacrum appears intact. SI joints appear symmetric. IMPRESSION: No acute findings. POS: AGW
[2020-04-03 15:42] LABS: Bilirubin Negative (Negative); Blood, Urine Negative (Negative); Clarity Turbid (Clear); Glucose, Urine (Dipstick) Normal (Negative); Ketone, Urine 10 mg/dL (Negative); Leukocyte Negative Leu/uL (Negative); Nitrite Negative (Negative); Protein, Urine (Dipstick) 10 mg/dL (Neg-Trace); Urobilinogen Normal mg/dL (Less than 2); pH, Urine 8.5 (5.0-9.0)
--- NOTE | 2020-04-03 15:52 | CT ---
CT OF THE ABDOMEN AND PELVIS WITH IV CONTRAST INDICATION: Fall with back pain COMPARISON: Prior exam dated February 05, 2020 and left femur radiographs dated 01/24/2020 FINDINGS: ABDOMEN: Lung bases: Subsegmental volume loss Liver: Mild fatty liver Gallbladder: Not visualized Pancreas: Atrophied Adrenal glands: Normal. Spleen: Normal. Kidneys and ureters: Atrophic no hydronephrosis. Vasculature: There are moderate vascular calcifications seen involving the visualized vasculature. Lymph nodes:No lymphadenopathy. Free fluid in abdomen:No free fluid is evident. PELVIS: Small and large bowel: Colonic diverticulosis. Small bowel is of normal caliber. Visualized stomach a ppears within normal limits. Appendix:Not definitely seen Bladder: Moderately distended Rectal and perirectal soft tissues:Normal. Reproductive structures: Normal. Free fluid in pelvis: No free fluid is evident. Lymphadenopathy pelvis: No lymphadenopathy is evident. Osseous structures: There is a been progressive healing of the proximal left femur fracture with subt le medullary device. 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 There are nondisplaced bilateral sacral ala insufficiency fractures extending through zone 1. There is no evidence of extens ion into the SI joints. No additional acute fractures evident. There is diffuse osteopenia. There is scattered degenerative and osteoarthritic changes. Soft tissues:Normal. IMPRESSION: 1. Nondisplaced bilateral zone 1 sacral ala insufficiency fractures. 2. Other chronic findings as above
[2020-04-03] MEDS ORDERED: Morphine 4 MG/ML VIAL ONE (16:04)
== END 2020-04-03 23:11 ==
LOC: ERS 11:04
DX: S32.10XA Unspecified fracture of sacrum, initial encounter for closed fracture (principal); I10 Essential (primary) hypertension; M19.90 Unspecified osteoarthritis, unspecified site; W19.XXXA Unspecified fall, initial encounter
CPT/HCPCS: 36415; 72220; 74177; 80053; 81003; 85025; 87086; 96372; 96374; 96375; J2270; J3010; Q0162

== ENCOUNTER 2022-03-23 12:03 | Inpatient (IN) | payer MEDICARE, OTHER ==
[~2022-03-23 12:03] MED LIST: Iopamidol-370 76% 500 ML 1 ML ONE
[2022-03-23] MEDS ORDERED: Morphine 4 MG/ML VIAL ONE ×3 (13:06→20:44)
[2022-03-23] MEDS ORDERED: Ondansetron PF 4 MG/2 ML Vial ONE ×2 (13:06→17:43)
[2022-03-23] MEDS ORDERED: Dicyclomine 20 MG/2 ML VIAL ONE (13:34)
[2022-03-23 13:39] LABS: #Monocytes 0.6 thou/uL (0.11-0.59); #Neutrophils 6.7 thou/uL (1.40-6.50); %Basophils 0.2 % (0.0-1.0); %Eosinophils 0.4 % (0.0-10.0); %Lymphocytes 21.9 % (21.0-51.0); %Monocytes 5.9 % (0.0-10.0); %Neutrophils 71.5 % (42.0-75.0); Hemoglobin 11.8 g/dL (12.0-16.0); Mean Corpuscular HGB CONC 30.4 g/dL (32.0-36.0); Mean Corpuscular Hemoglobin 28.3 pg (27.0-31.0); Mean Corpuscular Volume 93.2 fl (78.0-98.0); Mean Platelet Volume 8.5 fL (7.4-10.4); Platelet Count 380 10x3/uL (130-400); RBC Distribution Width 14.6 % (11.5-14.5); Red Blood Cell (RBC) Count 4.17 mill/uL (4.20-5.40); White Blood Cell (WBC) Count 9.3 10x3/uL (4.8-10.8)
[2022-03-23 14:01] LABS: ALT (SGPT) 8 U/L (8-55); AST (SGOT) 10 U/L (5-34); Albumin 3.4 g/dL (3.4-4.8); Alkaline Phosphatase 99 U/L (40-110); Anion Gap 14 mmol/L (10-20); BUN (Urea Nitrogen) 10 mg/dL (9.8-20.1); Bilirubin, Total 0.5 mg/dL (0.2-1.2); Calc. Creatinine Clearance 0 mL/min (70-130); Calcium 8.4 mg/dL (7.8-10.44); Carbon Dioxide 33 mmol/L (23-31); Chloride 95 mmol/L (98-107); Estimated GFR 59; Globulin 3.2 g/dL (2.4-3.5); Glucose 126 mg/dL (83-110); Lipase Less than 4 U/L (8-78); Protein, Total 6.6 g/dL (5.8-8.1); Sodium 140 mmol/L (136-145)
[2022-03-23 14:05] LABS: Potassium 2.2 mmol/L (3.5-5.1)
[2022-03-23] MEDS ORDERED: Potassium Chloride 40 MEQ in Sodium Chloride 0.9% 250 ML 250 ML IVPB SCH (14:30)
[2022-03-23] MEDS ORDERED: Acetaminophen 325 MG TAB PO PRN (16:07)
[2022-03-23] MEDS ORDERED: Lactated Ringer's 1,000 ML IV SCH (16:30)
[2022-03-23] MEDS ORDERED: HYDROcodone/Acetaminophen 5/325 mg Tablet PO PRN (16:32)
[2022-03-23] MEDS ORDERED: hydrALAZINE 20 MG/ML VIAL SLOW IVP PRN (17:28)
[2022-03-23] MEDS ORDERED: metroNIDAZOLE 500 MG/100 ML BAG ONE (17:43)
[2022-03-23] MEDS ORDERED: traMADol HCl 50 MG TAB PO PRN (17:51)
[2022-03-23] MEDS ORDERED: Acetaminophen 325 MG TAB PO SCH (18:00)
[2022-03-23 19:44] LABS: Lactic Acid 1.2 mmol/L (0.5-2.2)
[2022-03-23 19:49] LABS: Anion Gap 13 mmol/L (10-20); BUN (Urea Nitrogen) 9 mg/dL (9.8-20.1); Calc. Creatinine Clearance 0 mL/min (70-130); Calcium 7.9 mg/dL (7.8-10.44); Carbon Dioxide 29 mmol/L (23-31); Chloride 101 mmol/L (98-107); Estimated GFR 66; Glucose 104 mg/dL (83-110); Potassium 2.7 mmol/L (3.5-5.1); Sodium 140 mmol/L (136-145)
[2022-03-23 19:51] LABS: Magnesium 1.4 mg/dL (1.6-2.6); Phosphorus 2.7 mg/dL (2.3-4.7)
[2022-03-23 19:52] LABS: Troponin I 0.031 ng/mL (< 0.028)
[2022-03-23] MEDS ORDERED: Potassium Chloride 20 MEQ in Premix Bag 1 BAG IVPB SCH (20:30)
[2022-03-23] MEDS ORDERED: Acetaminophen 500 MG TAB ONE (20:44)
[2022-03-23] MEDS: Morphine 4 MG/ML VIAL SLOW IVP PRN (20:52)
[2022-03-23] MEDS: Carbidopa/Levodopa 10-100 mg Tablet PO SCH (20:54)
[2022-03-23] MEDS: Acetaminophen 500 MG TAB PO SCH (20:54)
[2022-03-23] MEDS: Gabapentin 300 MG CAP PO SCH (20:54)
[2022-03-23] MEDS ORDERED: Magnesium 2 GM/50 ML(in water) 2 GM in Premix Bag 1 BAG IVPB SCH (21:00)
[2022-03-23] MEDS ORDERED: Magnesium 2 GM/50 ML BAG (IN WATER) ONE (21:27)
[2022-03-23] MEDS ORDERED: hydrALAZINE 20 MG/ML VIAL ONE (21:43)
[2022-03-23 22:17] LABS: Bacteria/HPF 4+ HPF (None Seen); Bilirubin Negative (Negative); Blood, Urine Negative (Negative); Clarity Turbid (Clear); Glucose, Urine (Dipstick) Normal (Negative); Ketone, Urine Negative (Negative); Leukocyte 25 Leu/uL (Negative); Nitrite 2+ (Negative); Protein, Urine (Dipstick) Negative (Neg-Trace); RBC/HPF 0-3 HPF (0-3); Specific Gravity, Urine 1.036 (1.002-1.036); Squamous Epithelial 0-3 HPF (0-3); Urobilinogen Normal mg/dL (Less than 2)
[2022-03-23 22:58] LABS: Troponin I 0.026 ng/mL (< 0.028)
[2022-03-24] MEDS ORDERED: Lorazepam 2 MG/ML VIAL SLOW IVP PRN (00:03)
[2022-03-24] MEDS ORDERED: levETIRAcetam 500 MG/5 ML VIAL SLOW IVP SCH (00:15)
[2022-03-24 00:50] LABS: #Eosinphils 0.1 thou/uL (0.0-0.7); #Lymphocytes 2.8 thou/uL (1.20-3.40); #Monocytes 0.5 thou/uL (0.11-0.59); #Neutrophils 9.3 thou/uL (1.40-6.50); %Basophils 0.1 % (0.0-1.0); %Eosinophils 0.8 % (0.0-10.0); %Lymphocytes 22.2 % (21.0-51.0); %Monocytes 4.1 % (0.0-10.0); %Neutrophils 72.8 % (42.0-75.0); Hemoglobin 12.1 g/dL (12.0-16.0); Mean Corpuscular HGB CONC 30.6 g/dL (32.0-36.0); Mean Corpuscular Hemoglobin 28.8 pg (27.0-31.0); Mean Corpuscular Volume 94.2 fl (78.0-98.0); Mean Platelet Volume 8.1 fL (7.4-10.4); Platelet Count 398 10x3/uL (130-400); RBC Distribution Width 14.7 % (11.5-14.5); Red Blood Cell (RBC) Count 4.19 mill/uL (4.20-5.40); White Blood Cell (WBC) Count 12.8 10x3/uL (4.8-10.8)
[2022-03-24] MEDS: Acetaminophen 500 MG TAB PO SCH ×6 (00:52→22:35)
[2022-03-24] MEDS ORDERED: Fosfomycin 3 GM/Packet PO SCH (01:00)
[2022-03-24 01:10] LABS: Phosphorus 2.8 mg/dL (2.3-4.7)
[2022-03-24 01:12] LABS: ALT (SGPT) Less than 7 U/L (8-55); AST (SGOT) 12 U/L (5-34); Albumin 3.6 g/dL (3.4-4.8); Alkaline Phosphatase 108 U/L (40-110); Anion Gap 16 mmol/L (10-20); BUN (Urea Nitrogen) 9 mg/dL (9.8-20.1); Bilirubin, Total 0.6 mg/dL (0.2-1.2); Calc. Creatinine Clearance 0 mL/min (70-130); Calcium 8.6 mg/dL (7.8-10.44); Carbon Dioxide 26 mmol/L (23-31); Chloride 99 mmol/L (98-107); Estimated GFR 59; Globulin 3.5 g/dL (2.4-3.5); Glucose 184 mg/dL (83-110); Magnesium 2.4 mg/dL (1.6-2.6); Protein, Total 7.1 g/dL (5.8-8.1); Sodium 138 mmol/L (136-145)
[2022-03-24 01:15] LABS: Potassium 2.6 mmol/L (3.5-5.1)
[2022-03-24] MEDS ORDERED: Potassium Chloride 20 MEQ in Lactated Ringer's 1,000 ML IV SCH (01:30)
[2022-03-24] MEDS: Scopolamine 1.5 mg/72 hour Patch TD SCH (01:36)
[2022-03-24] MEDS: Morphine 4 MG/ML VIAL SLOW IVP PRN ×2 (01:56→06:20)
[2022-03-24 02:00] LABS: SARS-CoV-2 NAA Rapid Test Not Detected (NotDetected)
[2022-03-24] MEDS ORDERED: Potassium Chloride 20 MEQ TAB PO SCH ×2 (02:30→10:15)
[2022-03-24] MEDS ORDERED: Potassium Chloride 20 MEQ in Premix Bag 1 BAG IVPB SCH (03:00)
[2022-03-24 03:31] VITALS: BMI 22.1
[2022-03-24 05:37] LABS: Free T4 (Free Thyroxine) 1.04 ng/dL (0.70-1.48)
[2022-03-24 08:12] LABS: Anion Gap 13 mmol/L (10-20); BUN (Urea Nitrogen) 10 mg/dL (9.8-20.1); Calc. Creatinine Clearance 44 mL/min (70-130); Calcium 8.2 mg/dL (7.8-10.44); Carbon Dioxide 27 mmol/L (23-31); Chloride 100 mmol/L (98-107); Estimated GFR 67; Glucose 104 mg/dL (83-110); Magnesium 2.1 mg/dL (1.6-2.6); Potassium 3.5 mmol/L (3.5-5.1); Sodium 136 mmol/L (136-145)
[2022-03-24] MEDS ORDERED: Famotidine 20 MG TAB PO SCH (09:00)
[2022-03-24] MEDS ORDERED: levETIRAcetam 500 MG TAB PO SCH (09:00)
[2022-03-24] MEDS: Gabapentin 300 MG CAP PO SCH ×3 (09:31→22:37)
[2022-03-24] MEDS: Hydrochlorothiazide 25 MG TAB PO SCH (09:31)
[2022-03-24] MEDS: Carbidopa/Levodopa 10-100 mg Tablet PO SCH ×3 (09:32→22:36)
[2022-03-24] MEDS: Lisinopril 20 MG TAB PO SCH (09:34)
[2022-03-24] MEDS: Pantoprazole 40 MG VIAL IVP SCH (09:39)
[2022-03-24] MEDS: levETIRAcetam 500 MG/5 ML VIAL SLOW IVP SCH ×2 (12:05→22:37)
[2022-03-24] MEDS: Morphine 2 MG/ML VIAL SLOW IVP PRN ×2 (12:15→17:26)
[2022-03-24] MEDS: Metoprolol Tartrate 25 MG TAB PO SCH (22:37)
[2022-03-25] MEDS: Acetaminophen 500 MG TAB PO SCH ×6 (02:12→22:41)
[2022-03-25 04:13] LABS: #Eosinphils 0.1 thou/uL (0.0-0.7); #Lymphocytes 2.6 thou/uL (1.20-3.40); #Monocytes 0.6 thou/uL (0.11-0.59); #Neutrophils 10.1 thou/uL (1.40-6.50); %Basophils 0.1 % (0.0-1.0); %Eosinophils 0.5 % (0.0-10.0); %Lymphocytes 19.4 % (21.0-51.0); %Monocytes 4.3 % (0.0-10.0); %Neutrophils 75.8 % (42.0-75.0); Hemoglobin 10.7 g/dL (12.0-16.0); Mean Corpuscular HGB CONC 29.6 g/dL (32.0-36.0); Mean Corpuscular Hemoglobin 27.9 pg (27.0-31.0); Mean Corpuscular Volume 94.1 fl (78.0-98.0); Mean Platelet Volume 8.5 fL (7.4-10.4); Platelet Count 339 10x3/uL (130-400); Red Blood Cell (RBC) Count 3.84 mill/uL (4.20-5.40); White Blood Cell (WBC) Count 13.3 10x3/uL (4.8-10.8)
[2022-03-25 04:31] LABS: ALT (SGPT) Less than 7 U/L (8-55); AST (SGOT) 13 U/L (5-34); Albumin 2.9 g/dL (3.4-4.8); Alkaline Phosphatase 89 U/L (40-110); Anion Gap 10 mmol/L (10-20); BUN (Urea Nitrogen) 14 mg/dL (9.8-20.1); Bilirubin, Total 0.5 mg/dL (0.2-1.2); Calc. Creatinine Clearance 30 mL/min (70-130); Calcium 8.2 mg/dL (7.8-10.44); Carbon Dioxide 26 mmol/L (23-31); Chloride 102 mmol/L (98-107); Estimated GFR 43; Globulin 2.8 g/dL (2.4-3.5); Glucose 93 mg/dL (83-110); Potassium 4.2 mmol/L (3.5-5.1); Protein, Total 5.7 g/dL (5.8-8.1); Sodium 134 mmol/L (136-145)
[2022-03-25] MEDS ORDERED: Lactated Ringer's 1,000 ML IV SCH (09:00)
[2022-03-25] MEDS ORDERED: FLU VACC QS2022-23(65YR UP)/PF 240 MCG/0.7 ML SYRINGE IM ONE (09:00)
[2022-03-25] MEDS: Metoprolol Tartrate 25 MG TAB PO SCH ×2 (10:04→20:33)
[2022-03-25] MEDS: Carbidopa/Levodopa 10-100 mg Tablet PO SCH ×3 (10:04→20:33)
[2022-03-25] MEDS: Hydrochlorothiazide 25 MG TAB PO SCH (10:05)
[2022-03-25] MEDS: levETIRAcetam 500 MG/5 ML VIAL SLOW IVP SCH ×2 (10:05→20:33)
[2022-03-25] MEDS: Lisinopril 20 MG TAB PO SCH (10:05)
[2022-03-25] MEDS: Pantoprazole 40 MG VIAL IVP SCH (10:05)
[2022-03-25] MEDS: Gabapentin 300 MG CAP PO SCH ×3 (10:05→20:33)
[2022-03-25] MEDS: Folic Acid 1 MG TAB PO SCH (10:05)
[2022-03-25] MEDS: Morphine 2 MG/ML VIAL SLOW IVP PRN ×4 (10:09→22:37)
[2022-03-26] MEDS: Acetaminophen 500 MG TAB PO SCH ×7 (02:14→23:12)
[2022-03-26] MEDS: Morphine 2 MG/ML VIAL SLOW IVP PRN ×4 (03:14→20:09)
[2022-03-26 04:45] LABS: ALT (SGPT) Less than 7 U/L (8-55); AST (SGOT) 18 U/L (5-34); Albumin 3.2 g/dL (3.4-4.8); Alkaline Phosphatase 106 U/L (40-110); Anion Gap 16 mmol/L (10-20); BUN (Urea Nitrogen) 15 mg/dL (9.8-20.1); Bilirubin, Total 0.3 mg/dL (0.2-1.2); Calc. Creatinine Clearance 27 mL/min (70-130); Calcium 9.1 mg/dL (7.8-10.44); Carbon Dioxide 20 mmol/L (23-31); Chloride 104 mmol/L (98-107); Estimated GFR 39; Globulin 3.5 g/dL (2.4-3.5); Glucose 92 mg/dL (83-110); Protein, Total 6.7 g/dL (5.8-8.1); Sodium 135 mmol/L (136-145)
[2022-03-26 04:50] LABS: #Eosinphils 0.2 thou/uL (0.0-0.7); #Lymphocytes 2.6 thou/uL (1.20-3.40); #Monocytes 0.7 thou/uL (0.11-0.59); #Neutrophils 7.7 thou/uL (1.40-6.50); %Basophils 0.1 % (0.0-1.0); %Eosinophils 1.5 % (0.0-10.0); %Lymphocytes 23.4 % (21.0-51.0); %Monocytes 6.4 % (0.0-10.0); %Neutrophils 68.5 % (42.0-75.0); Mean Corpuscular HGB CONC 29.6 g/dL (32.0-36.0); Mean Corpuscular Hemoglobin 27.9 pg (27.0-31.0); Mean Corpuscular Volume 94.2 fl (78.0-98.0); Mean Platelet Volume 8.7 fL (7.4-10.4); Platelet Count 333 10x3/uL (130-400); RBC Distribution Width 15.3 % (11.5-14.5); Red Blood Cell (RBC) Count 3.94 mill/uL (4.20-5.40); White Blood Cell (WBC) Count 11.2 10x3/uL (4.8-10.8)
[2022-03-26] MEDS: Carbidopa/Levodopa 10-100 mg Tablet PO SCH ×3 (09:42→20:39)
[2022-03-26] MEDS: Gabapentin 300 MG CAP PO SCH ×3 (09:42→20:10)
[2022-03-26] MEDS: Amlodipine 5 MG TAB PO SCH (09:43)
[2022-03-26] MEDS: Folic Acid 1 MG TAB PO SCH (09:43)
[2022-03-26] MEDS: levETIRAcetam 500 MG TAB PO SCH ×2 (09:43→20:10)
[2022-03-26] MEDS: Hydrochlorothiazide 25 MG TAB PO SCH (09:43)
[2022-03-26] MEDS: Metoprolol Tartrate 25 MG TAB PO SCH ×2 (09:43→20:10)
[2022-03-26] MEDS ORDERED: Lactated Ringer's 1,000 ML IV SCH (10:00)
[2022-03-26] MEDS: Lactated Ringer's 1,000 ML IV SCH (11:14)
[2022-03-26] MEDS: Scopolamine 1.5 mg/72 hour Patch TD SCH (18:05)
[2022-03-26] MEDS: traZODone HCl 50 MG TAB PO SCH (20:10)
[2022-03-27] MEDS: Morphine 2 MG/ML VIAL SLOW IVP PRN (02:19)
[2022-03-27] MEDS: Acetaminophen 500 MG TAB PO SCH ×5 (06:14→20:54)
[2022-03-27] MEDS: Lactated Ringer's 1,000 ML IV SCH (06:20)
[2022-03-27] MEDS: Metoprolol Tartrate 25 MG TAB PO SCH ×2 (08:36→20:54)
[2022-03-27] MEDS: Gabapentin 300 MG CAP PO SCH ×3 (08:37→20:54)
[2022-03-27] MEDS: levETIRAcetam 500 MG TAB PO SCH ×2 (08:37→20:54)
[2022-03-27] MEDS: Hydrochlorothiazide 25 MG TAB PO SCH (08:37)
[2022-03-27] MEDS: Folic Acid 1 MG TAB PO SCH (08:37)
[2022-03-27] MEDS: Carbidopa/Levodopa 10-100 mg Tablet PO SCH ×3 (08:37→21:44)
[2022-03-27] MEDS: Amlodipine 5 MG TAB PO SCH (08:37)
[2022-03-27 08:44] LABS: #Eosinphils 0.3 thou/uL (0.0-0.7); #Lymphocytes 2.5 thou/uL (1.20-3.40); #Monocytes 0.9 thou/uL (0.11-0.59); #Neutrophils 7.9 thou/uL (1.40-6.50); %Basophils 0.2 % (0.0-1.0); %Eosinophils 2.4 % (0.0-10.0); %Lymphocytes 21.8 % (21.0-51.0); %Monocytes 8.1 % (0.0-10.0); %Neutrophils 67.5 % (42.0-75.0); Hemoglobin 10.4 g/dL (12.0-16.0); Mean Corpuscular HGB CONC 30.5 g/dL (32.0-36.0); Mean Corpuscular Hemoglobin 28.5 pg (27.0-31.0); Mean Corpuscular Volume 93.5 fl (78.0-98.0); Platelet Count 327 10x3/uL (130-400); RBC Distribution Width 15.5 % (11.5-14.5); Red Blood Cell (RBC) Count 3.66 mill/uL (4.20-5.40); White Blood Cell (WBC) Count 11.6 10x3/uL (4.8-10.8)
[2022-03-27 09:04] LABS: Anion Gap 15 mmol/L (10-20); BUN (Urea Nitrogen) 19 mg/dL (9.8-20.1); Calc. Creatinine Clearance 39 mL/min (70-130); Calcium 8.9 mg/dL (7.8-10.44); Carbon Dioxide 22 mmol/L (23-31); Chloride 104 mmol/L (98-107); Estimated GFR 59; Glucose 93 mg/dL (83-110); Potassium 5.3 mmol/L (3.5-5.1); Sodium 136 mmol/L (136-145)
[2022-03-27] MEDS ORDERED: Milk Of Magnesia 30 ML UDCUP PO PRN (10:18)
[2022-03-27] MEDS: Simethicone Chewable 80 MG TAB PO SCH ×5 (12:13→20:54)
[2022-03-27] MEDS ORDERED: Senokot S 8.6-50 MG TAB PO SCH ×2 (14:30→21:00)
[2022-03-27] MEDS ORDERED: Polyethylene Glycol 3350 17 GM Packet PO SCH ×2 (14:30→21:00)
[2022-03-27 18:27] LABS: Chloride 100 mmol/L (98-107); Potassium 5.3 mmol/L (3.5-5.1); Sodium 135 mmol/L (136-145)
[2022-03-27 18:28] LABS: Glucose 105 mg/dL (83-110)
[2022-03-27 18:30] LABS: Anion Gap 14 mmol/L (10-20); Carbon Dioxide 26 mmol/L (23-31)
[2022-03-27 18:32] LABS: BUN (Urea Nitrogen) 18 mg/dL (9.8-20.1); Calc. Creatinine Clearance 36 mL/min (70-130); Estimated GFR 52
[2022-03-27] MEDS: traZODone HCl 50 MG TAB PO SCH (20:54)
[2022-03-28] MEDS: Acetaminophen 500 MG TAB PO SCH ×6 (00:52→20:53)
[2022-03-28] MEDS ORDERED: Loperamide HCl 2 MG CAP PO PRN (06:46)
[2022-03-28 06:55] LABS: Anion Gap 14 mmol/L (10-20); BUN (Urea Nitrogen) 23 mg/dL (9.8-20.1); Calc. Creatinine Clearance 38 mL/min (70-130); Calcium 8.8 mg/dL (7.8-10.44); Carbon Dioxide 23 mmol/L (23-31); Chloride 104 mmol/L (98-107); Estimated GFR 56; Glucose 112 mg/dL (83-110); Potassium 4.8 mmol/L (3.5-5.1); Sodium 136 mmol/L (136-145)
[2022-03-28] MEDS: Simethicone Chewable 80 MG TAB PO SCH ×4 (09:09→20:53)
[2022-03-28] MEDS: Amlodipine 5 MG TAB PO SCH (09:10)
[2022-03-28] MEDS: Carbidopa/Levodopa 10-100 mg Tablet PO SCH ×3 (09:11→20:53)
[2022-03-28] MEDS: Folic Acid 1 MG TAB PO SCH (09:11)
[2022-03-28] MEDS: levETIRAcetam 500 MG TAB PO SCH ×2 (09:11→20:53)
[2022-03-28] MEDS: Gabapentin 300 MG CAP PO SCH ×3 (09:11→20:52)
[2022-03-28] MEDS: Hydrochlorothiazide 25 MG TAB PO SCH (09:11)
[2022-03-28] MEDS: Metoprolol Tartrate 25 MG TAB PO SCH ×2 (09:11→20:53)
[2022-03-28] MEDS ORDERED: Ibuprofen 600 MG TAB PO PRN (10:23)
[2022-03-28] MEDS ORDERED: Sodium Chloride 0.9% 1,000 ML IV SCH (11:00)
[2022-03-28] MEDS: Dicyclomine 10 MG CAP PO SCH ×3 (13:02→20:53)
[2022-03-28] MEDS: traZODone HCl 50 MG TAB PO SCH (20:53)
[2022-03-29] MEDS: Acetaminophen 500 MG TAB PO SCH ×6 (01:10→21:02)
[2022-03-29 07:48] LABS: #Eosinphils 0.2 thou/uL (0.0-0.7); #Lymphocytes 2.1 thou/uL (1.20-3.40); #Monocytes 0.8 thou/uL (0.11-0.59); #Neutrophils 7.5 thou/uL (1.40-6.50); %Basophils 0.2 % (0.0-1.0); %Eosinophils 2.1 % (0.0-10.0); %Lymphocytes 19.7 % (21.0-51.0); %Monocytes 7.9 % (0.0-10.0); %Neutrophils 70.1 % (42.0-75.0); Hemoglobin 8.7 g/dL (12.0-16.0); Mean Corpuscular HGB CONC 31.6 g/dL (32.0-36.0); Mean Corpuscular Hemoglobin 29.2 pg (27.0-31.0); Mean Corpuscular Volume 92.3 fl (78.0-98.0); Mean Platelet Volume 7.8 fL (7.4-10.4); Platelet Count 375 10x3/uL (130-400); RBC Distribution Width 15.8 % (11.5-14.5); Red Blood Cell (RBC) Count 2.98 mill/uL (4.20-5.40); White Blood Cell (WBC) Count 10.7 10x3/uL (4.8-10.8)
[2022-03-29 08:10] LABS: ALT (SGPT) Less than 7 U/L (8-55); AST (SGOT) 22 U/L (5-34); Albumin 2.6 g/dL (3.4-4.8); Alkaline Phosphatase 60 U/L (40-110); Anion Gap 13 mmol/L (10-20); BUN (Urea Nitrogen) 36 mg/dL (9.8-20.1); Bilirubin, Total 0.3 mg/dL (0.2-1.2); Calc. Creatinine Clearance 47 mL/min (70-130); Calcium 8.3 mg/dL (7.8-10.44); Carbon Dioxide 20 mmol/L (23-31); Chloride 109 mmol/L (98-107); Estimated GFR 74; Globulin 2.6 g/dL (2.4-3.5); Glucose 103 mg/dL (83-110); Potassium 4.5 mmol/L (3.5-5.1); Protein, Total 5.2 g/dL (5.8-8.1); Sodium 137 mmol/L (136-145)
[2022-03-29] MEDS: Carbidopa/Levodopa 10-100 mg Tablet PO SCH ×3 (09:14→21:02)
[2022-03-29] MEDS: levETIRAcetam 500 MG TAB PO SCH ×2 (09:14→21:01)
[2022-03-29] MEDS: Simethicone Chewable 80 MG TAB PO SCH ×4 (09:14→21:01)
[2022-03-29] MEDS: Gabapentin 300 MG CAP PO SCH ×3 (09:14→21:01)
[2022-03-29] MEDS: Metoprolol Tartrate 25 MG TAB PO SCH ×2 (09:14→21:01)
[2022-03-29] MEDS: Dicyclomine 10 MG CAP PO SCH ×4 (09:15→21:01)
[2022-03-29] MEDS: Folic Acid 1 MG TAB PO SCH (09:16)
[2022-03-29] MEDS: Amlodipine 5 MG TAB PO SCH (09:16)
[2022-03-29] MEDS: Hydrochlorothiazide 25 MG TAB PO SCH (09:16)
[2022-03-29] MEDS ORDERED: Iopamidol-370 76% 500 ML 1 ML ONE (09:27)
[2022-03-29] MEDS ORDERED: Morphine 2 MG/ML VIAL SLOW IVP SCH (11:40)
[2022-03-29] MEDS: Sodium Chloride 0.9% 1,000 ML IV SCH (13:38)
[2022-03-29] MEDS: Scopolamine 1.5 mg/72 hour Patch TD SCH (16:27)
[2022-03-29] MEDS: traZODone HCl 50 MG TAB PO SCH (21:01)
[2022-03-29] MEDS ORDERED: Morphine 4 MG/ML VIAL SLOW IVP SCH (21:30)
[2022-03-29] MEDS ORDERED: Ondansetron PF 4 MG/2 ML Vial IVP SCH (22:30)
[2022-03-30] MEDS: Acetaminophen 500 MG TAB PO SCH ×3 (01:21→07:58)
[2022-03-30] MEDS: Sodium Chloride 0.9% 1,000 ML IV SCH (01:59)
[2022-03-30] MEDS ORDERED: Morphine 4 MG/ML VIAL SLOW IVP PRN (05:45)
[2022-03-30 06:07] LABS: #Eosinphils 0.1 thou/uL (0.0-0.7); #Lymphocytes 1.8 thou/uL (1.20-3.40); #Monocytes 0.7 thou/uL (0.11-0.59); #Neutrophils 6.5 thou/uL (1.40-6.50); %Basophils 0.2 % (0.0-1.0); %Eosinophils 1.1 % (0.0-10.0); %Lymphocytes 19.5 % (21.0-51.0); %Monocytes 7.9 % (0.0-10.0); %Neutrophils 71.3 % (42.0-75.0); Hemoglobin 7.7 g/dL (12.0-16.0); Mean Corpuscular HGB CONC 31.4 g/dL (32.0-36.0); Mean Corpuscular Hemoglobin 29.1 pg (27.0-31.0); Mean Corpuscular Volume 92.8 fl (78.0-98.0); Mean Platelet Volume 7.7 fL (7.4-10.4); Platelet Count 363 10x3/uL (130-400); RBC Distribution Width 15.7 % (11.5-14.5); Red Blood Cell (RBC) Count 2.66 mill/uL (4.20-5.40); White Blood Cell (WBC) Count 9.1 10x3/uL (4.8-10.8)
[2022-03-30] MEDS: Simethicone Chewable 80 MG TAB PO SCH ×4 (07:58→20:26)
[2022-03-30] MEDS: Folic Acid 1 MG TAB PO SCH (07:59)
[2022-03-30] MEDS: Gabapentin 300 MG CAP PO SCH ×3 (07:59→20:26)
[2022-03-30] MEDS: Dicyclomine 10 MG CAP PO SCH ×4 (07:59→20:27)
[2022-03-30] MEDS: Amlodipine 5 MG TAB PO SCH (07:59)
[2022-03-30] MEDS: Metoprolol Tartrate 25 MG TAB PO SCH ×2 (07:59→20:27)
[2022-03-30] MEDS: levETIRAcetam 500 MG TAB PO SCH ×2 (07:59→20:27)
[2022-03-30] MEDS: Hydrochlorothiazide 25 MG TAB PO SCH (07:59)
[2022-03-30] MEDS: Carbidopa/Levodopa 10-100 mg Tablet PO SCH ×3 (08:06→20:26)
[2022-03-30 11:35] LABS: Hemoglobin 8.9 g/dL (12.0-16.0); Mean Corpuscular HGB CONC 29.9 g/dL (32.0-36.0); Mean Corpuscular Hemoglobin 27.7 pg (27.0-31.0); Mean Corpuscular Volume 92.5 fl (78.0-98.0); Mean Platelet Volume 8.6 fL (7.4-10.4); Platelet Count 307 10x3/uL (130-400); RBC Distribution Width 15.9 % (11.5-14.5); White Blood Cell (WBC) Count 14.1 10x3/uL (4.8-10.8)
[2022-03-30] MEDS: HYDROcodone/Acetaminophen 5/325 mg Tablet PO PRN ×2 (13:13→20:27)
[2022-03-30] MEDS: Acetaminophen 325 MG TAB PO SCH ×3 (13:13→20:26)
[2022-03-30 14:15] LABS: Bilirubin Negative (Negative); Blood, Urine Negative (Negative); CAUTI Indications for Culture Dysuria,urgency,freq; Clarity Turbid (Clear); Glucose, Urine (Dipstick) Normal (Negative); Ketone, Urine Negative (Negative); Leukocyte 500 Leu/uL (Negative); Nitrite Negative (Negative); Protein, Urine (Dipstick) Negative (Neg-Trace); Specific Gravity, Urine 1.018 (1.002-1.036); Squamous Epithelial 0-3 HPF (0-3); Urobilinogen Normal mg/dL (Less than 2); pH, Urine 5.5 (5.0-9.0)
[2022-03-30 14:30] LABS: Bacteria/HPF 4+ HPF (None Seen)
[2022-03-30 14:31] LABS: RBC/HPF 0-3 HPF (0-3); Urine Culture Reflex No No; WBC/HPF 0-3 HPF (0-3)
[2022-03-30] MEDS: cefTRIAXone\\ROCEPHIN 1 GM in Sodium Chloride 0.9% 100 ML IVPB SCH (17:19)
[2022-03-30] MEDS ORDERED: GoLYTELY 4,000 ml Bottle PO SCH (17:30)
[2022-03-30] MEDS: traZODone HCl 50 MG TAB PO SCH (20:27)
[2022-03-31] MEDS: Acetaminophen 325 MG TAB PO SCH ×6 (04:13→21:09)
[2022-03-31] MEDS: HYDROcodone/Acetaminophen 5/325 mg Tablet PO PRN (05:42)
[2022-03-31 07:43] LABS: Hemoglobin 6.7 g/dL (12.0-16.0); Mean Corpuscular HGB CONC 30.9 g/dL (32.0-36.0); Mean Corpuscular Hemoglobin 28.1 pg (27.0-31.0); Mean Corpuscular Volume 90.9 fl (78.0-98.0); Mean Platelet Volume 7.9 fL (7.4-10.4); Platelet Count 345 10x3/uL (130-400); RBC Distribution Width 15.9 % (11.5-14.5); White Blood Cell (WBC) Count 23.5 10x3/uL (4.8-10.8)
[2022-03-31 07:51] LABS: Anion Gap 11 mmol/L (10-20); BUN (Urea Nitrogen) 21 mg/dL (9.8-20.1); Calc. Creatinine Clearance 46 mL/min (70-130); Calcium 8.2 mg/dL (7.8-10.44); Carbon Dioxide 21 mmol/L (23-31); Chloride 106 mmol/L (98-107); Estimated GFR 71; Glucose 116 mg/dL (83-110); Iron 9 ug/dL (50-170); Iron Binding Capacity, Total 238 mcg/dL (265-497); Potassium 4.1 mmol/L (3.5-5.1); Sodium 134 mmol/L (136-145)
[2022-03-31 08:16] LABS: Ferritin 56.18 ng/mL (10-291)
[2022-03-31] MEDS ORDERED: Iopamidol-370 76% 500 ML 1 ML ONE (09:14)
[2022-03-31] MEDS: Amlodipine 5 MG TAB PO SCH (09:15)
[2022-03-31] MEDS: Hydrochlorothiazide 25 MG TAB PO SCH (09:15)
[2022-03-31] MEDS: Metoprolol Tartrate 25 MG TAB PO SCH ×2 (09:16→21:19)
[2022-03-31] MEDS: Dicyclomine 10 MG CAP PO SCH ×4 (09:17→21:04)
[2022-03-31] MEDS: levETIRAcetam 500 MG TAB PO SCH ×2 (09:17→21:07)
[2022-03-31] MEDS: Folic Acid 1 MG TAB PO SCH (09:17)
[2022-03-31] MEDS: Carbidopa/Levodopa 10-100 mg Tablet PO SCH ×3 (09:17→21:03)
[2022-03-31] MEDS: Simethicone Chewable 80 MG TAB PO SCH ×4 (09:17→21:08)
[2022-03-31] MEDS: Gabapentin 300 MG CAP PO SCH ×3 (09:17→21:05)
[2022-03-31 09:44] LABS: Band 9 % (5-11); Eosinophils 1 % (0-10); Hypochromia SLIGHT = 6-15 cells (100X) (0-5/hpf); Lymphocytes 9 % (21-51); MDiff Complete? YES; Monocytes 2 % (0-10); Neutrophil 79 % (42-75); Platelet Morphology Comment Appears Adequate; Polychromasia SLIGHT = 2-3 cells (100X) (0-2/hpf)
[2022-03-31] MEDS ORDERED: Sodium Chloride 0.9% 100 ML ONE (17:53)
[2022-03-31] MEDS ORDERED: cefTRIAXone\\ROCEPHIN 1 GM VIAL ONE (17:53)
[2022-03-31] MEDS ORDERED: PROPOFOL 200 MG/20 ML VIAL ONE (18:12)
[2022-03-31] MEDS ORDERED: Lidocaine 1% PF 5 ML VIAL ONE (18:12)
[2022-03-31] MEDS: cefTRIAXone\\ROCEPHIN 1 GM in Sodium Chloride 0.9% 100 ML IVPB SCH (21:09)
[2022-03-31] MEDS: traZODone HCl 50 MG TAB PO SCH (21:18)
[2022-04-01] MEDS: Acetaminophen 325 MG TAB PO SCH ×6 (01:10→20:50)
[2022-04-01] MEDS: HYDROcodone/Acetaminophen 5/325 mg Tablet PO PRN ×3 (06:37→22:22)
[2022-04-01 07:36] LABS: #Basophils 0.1 thou/uL (0.0-0.2); #Eosinphils 0.3 thou/uL (0.0-0.7); #Lymphocytes 2.2 thou/uL (1.20-3.40); #Monocytes 1.4 thou/uL (0.11-0.59); %Basophils 0.2 % (0.0-1.0); %Eosinophils 1.3 % (0.0-10.0); %Lymphocytes 9.8 % (21.0-51.0); %Monocytes 6.3 % (0.0-10.0); %Neutrophils 82.4 % (42.0-75.0); Hemoglobin 9.9 g/dL (12.0-16.0); Mean Corpuscular Hemoglobin 27.6 pg (27.0-31.0); Mean Corpuscular Volume 86.4 fl (78.0-98.0); Mean Platelet Volume 7.9 fL (7.4-10.4); Platelet Count 415 10x3/uL (130-400); RBC Distribution Width 19.9 % (11.5-14.5); Red Blood Cell (RBC) Count 3.59 mill/uL (4.20-5.40); White Blood Cell (WBC) Count 21.9 10x3/uL (4.8-10.8)
[2022-04-01 07:53] LABS: Anion Gap 14 mmol/L (10-20); BUN (Urea Nitrogen) 11 mg/dL (9.8-20.1); Calc. Creatinine Clearance 47 mL/min (70-130); Calcium 8.8 mg/dL (7.8-10.44); Carbon Dioxide 19 mmol/L (23-31); Chloride 110 mmol/L (98-107); Estimated GFR 74; Glucose 118 mg/dL (83-110); Potassium 3.6 mmol/L (3.5-5.1); Sodium 139 mmol/L (136-145)
[2022-04-01] MEDS ORDERED: Morphine 2 MG/ML VIAL SLOW IVP SCH ×2 (08:15→15:45)
[2022-04-01] MEDS: Folic Acid 1 MG TAB PO SCH (09:29)
[2022-04-01] MEDS: Amlodipine 5 MG TAB PO SCH (09:29)
[2022-04-01] MEDS: Hydrochlorothiazide 25 MG TAB PO SCH (09:30)
[2022-04-01] MEDS: Carbidopa/Levodopa 10-100 mg Tablet PO SCH ×3 (09:30→20:49)
[2022-04-01] MEDS: Dicyclomine 10 MG CAP PO SCH ×4 (09:32→20:50)
[2022-04-01] MEDS: Gabapentin 300 MG CAP PO SCH ×3 (09:32→20:50)
[2022-04-01] MEDS: Metoprolol Tartrate 25 MG TAB PO SCH ×2 (09:32→20:50)
[2022-04-01] MEDS: levETIRAcetam 500 MG TAB PO SCH ×2 (09:33→20:50)
[2022-04-01] MEDS: Simethicone Chewable 80 MG TAB PO SCH ×4 (09:33→20:50)
[2022-04-01] MEDS: Scopolamine 1.5 mg/72 hour Patch TD SCH (18:27)
[2022-04-01] MEDS: cefTRIAXone\\ROCEPHIN 1 GM in Sodium Chloride 0.9% 100 ML IVPB SCH (18:28)
[2022-04-01] MEDS: traZODone HCl 50 MG TAB PO SCH (20:51)
[2022-04-01] MEDS: Morphine 2 MG/ML VIAL SLOW IVP PRN (22:21)
[2022-04-02] MEDS: Acetaminophen 325 MG TAB PO SCH ×3 (04:29→10:09)
[2022-04-02] MEDS: HYDROcodone/Acetaminophen 5/325 mg Tablet PO PRN (04:32)
[2022-04-02 05:47] LABS: #Eosinphils 0.4 thou/uL (0.0-0.7); #Lymphocytes 2.4 thou/uL (1.20-3.40); #Monocytes 0.9 thou/uL (0.11-0.59); #Neutrophils 10.9 thou/uL (1.40-6.50); %Basophils 0.1 % (0.0-1.0); %Eosinophils 2.4 % (0.0-10.0); %Lymphocytes 16.4 % (21.0-51.0); %Monocytes 6.3 % (0.0-10.0); %Neutrophils 74.8 % (42.0-75.0); Hemoglobin 8.6 g/dL (12.0-16.0); Mean Corpuscular HGB CONC 31.2 g/dL (32.0-36.0); Mean Corpuscular Hemoglobin 27.3 pg (27.0-31.0); Mean Corpuscular Volume 87.5 fl (78.0-98.0); Mean Platelet Volume 7.8 fL (7.4-10.4); Platelet Count 385 10x3/uL (130-400); RBC Distribution Width 19.5 % (11.5-14.5); Red Blood Cell (RBC) Count 3.13 mill/uL (4.20-5.40); White Blood Cell (WBC) Count 14.6 10x3/uL (4.8-10.8)
[2022-04-02] MEDS: Morphine 2 MG/ML VIAL SLOW IVP PRN ×2 (05:54→10:10)
[2022-04-02 06:03] LABS: Anion Gap 10 mmol/L (10-20); BUN (Urea Nitrogen) 11 mg/dL (9.8-20.1); Calc. Creatinine Clearance 46 mL/min (70-130); Calcium 8.7 mg/dL (7.8-10.44); Carbon Dioxide 23 mmol/L (23-31); Chloride 106 mmol/L (98-107); Estimated GFR 71; Glucose 97 mg/dL (83-110); Sodium 135 mmol/L (136-145)
[2022-04-02] MEDS: Amlodipine 5 MG TAB PO SCH (10:07)
[2022-04-02] MEDS: levETIRAcetam 500 MG TAB PO SCH ×2 (10:08→20:06)
[2022-04-02] MEDS: Simethicone Chewable 80 MG TAB PO SCH ×4 (10:08→20:05)
[2022-04-02] MEDS: Hydrochlorothiazide 25 MG TAB PO SCH (10:08)
[2022-04-02] MEDS: Carbidopa/Levodopa 10-100 mg Tablet PO SCH ×3 (10:08→20:06)
[2022-04-02] MEDS: Dicyclomine 10 MG CAP PO SCH ×4 (10:08→20:06)
[2022-04-02] MEDS: Metoprolol Tartrate 25 MG TAB PO SCH ×2 (10:08→20:06)
[2022-04-02] MEDS: Folic Acid 1 MG TAB PO SCH (10:09)
[2022-04-02] MEDS: Gabapentin 300 MG CAP PO SCH ×3 (10:09→20:05)
[2022-04-02] MEDS ORDERED: HYDROcodone/Acetaminophen 5/325 mg Tablet PO PRN (11:46)
[2022-04-02] MEDS: HYDROcodone/Acetaminophen 5/325 mg Tablet PO SCH ×3 (13:05→23:23)
[2022-04-02] MEDS: traZODone HCl 50 MG TAB PO SCH (20:06)
[2022-04-03] MEDS: HYDROcodone/Acetaminophen 5/325 mg Tablet PO SCH ×2 (05:14→11:15)
[2022-04-03 05:36] LABS: #Eosinphils 0.3 thou/uL (0.0-0.7); #Lymphocytes 2.2 thou/uL (1.20-3.40); #Monocytes 0.7 thou/uL (0.11-0.59); #Neutrophils 6.6 thou/uL (1.40-6.50); %Basophils 0.1 % (0.0-1.0); %Eosinophils 3.3 % (0.0-10.0); %Lymphocytes 22.5 % (21.0-51.0); %Monocytes 7.5 % (0.0-10.0); %Neutrophils 66.6 % (42.0-75.0); Hemoglobin 9.6 g/dL (12.0-16.0); Mean Corpuscular Volume 87.5 fl (78.0-98.0); Mean Platelet Volume 7.6 fL (7.4-10.4); Platelet Count 468 10x3/uL (130-400); RBC Distribution Width 18.8 % (11.5-14.5); Red Blood Cell (RBC) Count 3.44 mill/uL (4.20-5.40); White Blood Cell (WBC) Count 9.9 10x3/uL (4.8-10.8)
[2022-04-03 05:54] LABS: Anion Gap 12 mmol/L (10-20); BUN (Urea Nitrogen) 12 mg/dL (9.8-20.1); Calc. Creatinine Clearance 48 mL/min (70-130); Calcium 8.8 mg/dL (7.8-10.44); Carbon Dioxide 24 mmol/L (23-31); Chloride 104 mmol/L (98-107); Estimated GFR 76; Glucose 86 mg/dL (83-110); Potassium 4.4 mmol/L (3.5-5.1); Sodium 136 mmol/L (136-145)
[2022-04-03] MEDS: Folic Acid 1 MG TAB PO SCH (08:15)
[2022-04-03] MEDS: Metoprolol Tartrate 25 MG TAB PO SCH ×2 (08:15→19:44)
[2022-04-03] MEDS: Dicyclomine 10 MG CAP PO SCH ×4 (08:15→19:44)
[2022-04-03] MEDS: Hydrochlorothiazide 25 MG TAB PO SCH (08:16)
[2022-04-03] MEDS: levETIRAcetam 500 MG TAB PO SCH ×2 (08:16→19:44)
[2022-04-03] MEDS: Simethicone Chewable 80 MG TAB PO SCH ×4 (08:16→19:43)
[2022-04-03] MEDS: Carbidopa/Levodopa 10-100 mg Tablet PO SCH ×3 (08:16→19:44)
[2022-04-03] MEDS: Gabapentin 300 MG CAP PO SCH ×3 (08:16→19:44)
[2022-04-03] MEDS: Amlodipine 5 MG TAB PO SCH (08:16)
[2022-04-03] MEDS ORDERED: HYDROcodone/Acetaminophen 10/325 mg Tablet PO PRN (11:32)
[2022-04-03] MEDS: HYDROcodone/Acetaminophen 10/325 mg Tablet PO SCH ×2 (12:06→17:28)
[2022-04-03] MEDS: traZODone HCl 50 MG TAB PO SCH (19:44)
[2022-04-04] MEDS: HYDROcodone/Acetaminophen 10/325 mg Tablet PO SCH ×4 (05:24→17:13)
[2022-04-04 06:07] LABS: #Eosinphils 0.2 thou/uL (0.0-0.7); #Lymphocytes 1.7 thou/uL (1.20-3.40); #Monocytes 0.7 thou/uL (0.11-0.59); #Neutrophils 5.1 thou/uL (1.40-6.50); %Basophils 0.6 % (0.0-1.0); %Eosinophils 2.4 % (0.0-10.0); %Lymphocytes 22.2 % (21.0-51.0); %Monocytes 9.2 % (0.0-10.0); %Neutrophils 65.6 % (42.0-75.0); Hemoglobin 9.2 g/dL (12.0-16.0); Mean Corpuscular HGB CONC 31.6 g/dL (32.0-36.0); Mean Corpuscular Hemoglobin 28.2 pg (27.0-31.0); Mean Corpuscular Volume 89.3 fl (78.0-98.0); Mean Platelet Volume 7.4 fL (7.4-10.4); Platelet Count 472 10x3/uL (130-400); RBC Distribution Width 18.9 % (11.5-14.5); Red Blood Cell (RBC) Count 3.27 mill/uL (4.20-5.40); White Blood Cell (WBC) Count 7.8 10x3/uL (4.8-10.8)
[2022-04-04 06:27] LABS: Anion Gap 14 mmol/L (10-20); BUN (Urea Nitrogen) 16 mg/dL (9.8-20.1); Calc. Creatinine Clearance 45 mL/min (70-130); Calcium 8.5 mg/dL (7.8-10.44); Carbon Dioxide 20 mmol/L (23-31); Chloride 107 mmol/L (98-107); Estimated GFR 69; Glucose 97 mg/dL (83-110); Potassium 4.5 mmol/L (3.5-5.1); Sodium 136 mmol/L (136-145)
[2022-04-04] MEDS: Carbidopa/Levodopa 10-100 mg Tablet PO SCH ×2 (08:09→14:49)
[2022-04-04] MEDS: Gabapentin 300 MG CAP PO SCH ×2 (08:09→14:49)
[2022-04-04] MEDS: levETIRAcetam 500 MG TAB PO SCH (08:09)
[2022-04-04] MEDS: Metoprolol Tartrate 25 MG TAB PO SCH (08:09)
[2022-04-04] MEDS: Amlodipine 5 MG TAB PO SCH (08:09)
[2022-04-04] MEDS: Simethicone Chewable 80 MG TAB PO SCH ×3 (08:09→17:13)
[2022-04-04] MEDS: Folic Acid 1 MG TAB PO SCH (08:09)
[2022-04-04] MEDS: Dicyclomine 10 MG CAP PO SCH ×3 (08:09→17:13)
[2022-04-04] MEDS: Hydrochlorothiazide 25 MG TAB PO SCH (08:14)
[2022-04-04] MEDS ORDERED: Polyvinyl Alcohol 1.4%/Povidone 0.6% Opth Drops EA EYE SCH (09:00)
[2022-04-04 16:27] VITALS: BP 127/75; TEMP 97.8
[2022-04-04] MEDS: Scopolamine 1.5 mg/72 hour Patch TD SCH (17:16)
== END 2022-04-04 17:45 | disposition home health service (06) | DRG 394 ==
LOC: ERS 12:03 → ERHOLD 17:17 → 2NO 22:57 → OBSVTOIN 03-24 10:00 → SJJU 03-26 14:40
PROVIDERS: ADMIT Emergency Medicine; ATTEND Emergency Medicine
PROC: 30233N1 Transfusion of Nonautologous Red Blood Cells into Peripheral Vein, Percutaneous Approach (ICD-10-PCS; principal; 2022-03-31)
PROC: 0DJ08ZZ Inspection of Upper Intestinal Tract, Via Natural or Artificial Opening Endoscopic (ICD-10-PCS; 2022-03-31)
PROC: 0DBK8ZX Excision of Ascending Colon, Via Natural or Artificial Opening Endoscopic, Diagnostic (ICD-10-PCS; 2022-03-31)
PROC: 0DBH8ZX Excision of Cecum, Via Natural or Artificial Opening Endoscopic, Diagnostic (ICD-10-PCS; 2022-03-31)
DX: K55.9 Vascular disorder of intestine, unspecified (principal); N17.9 Acute kidney failure, unspecified; N39.0 Urinary tract infection, site not specified; F32.A Depression, unspecified; F41.9 Anxiety disorder, unspecified; G89.4 Chronic pain syndrome; G93.89 Other specified disorders of brain; K57.30 Diverticulosis of large intestine without perforation or abscess without bleeding; K64.8 Other hemorrhoids; I48.0 Paroxysmal atrial fibrillation; I10 Essential (primary) hypertension; E87.6 Hypokalemia; Z88.1 Allergy status to other antibiotic agents; Z88.0 Allergy status to penicillin; Z88.8 Allergy status to other drugs, medicaments and biological substances; Z90.49 Acquired absence of other specified parts of digestive tract; Z79.899 Other long term (current) drug therapy
CPT/HCPCS: 36415; 36416; 36430; 70450; 70551; 74174; 74177; 80048; 80053; 81001; 81003; 81015; 82607; 82728; 83540; 83550; 83605; 83690; 83735; 83880; 84100; 84439; 84443; 84481; 84484; 85025; 86850; 86900; 86901; 87077; 87086; 87186; 87811; 88305; 93005; 93306; 95706; 95819; 95957; 96361; 96372; 96374; 96375; 96376; 97139; C9113; G0378; J0360; J0696; J1650; J1953; J2270; J2272; J2405; J2704; J3475; J3480; J3490; J7050; J7120; P9016; Q9967

== ENCOUNTER 2022-04-10 12:12 | Emergency (ER) | payer MEDICARE, OTHER ==
[2022-04-10 12:48] LABS: #Basophils 0.1 thou/uL (0.0-0.2); #Eosinphils 0.2 thou/uL (0.0-0.7); #Lymphocytes 1.6 thou/uL (1.20-3.40); #Monocytes 0.4 thou/uL (0.11-0.59); #Neutrophils 6.6 thou/uL (1.40-6.50); %Basophils 0.7 % (0.0-1.0); %Eosinophils 2.3 % (0.0-10.0); %Lymphocytes 18.1 % (21.0-51.0); %Monocytes 4.3 % (0.0-10.0); %Neutrophils 74.7 % (42.0-75.0); Hemoglobin 11.2 g/dL (12.0-16.0); Mean Corpuscular HGB CONC 31.7 g/dL (32.0-36.0); Mean Corpuscular Hemoglobin 27.8 pg (27.0-31.0); Mean Corpuscular Volume 87.5 fl (78.0-98.0); Mean Platelet Volume 6.9 fL (7.4-10.4); Platelet Count 654 10x3/uL (130-400); RBC Distribution Width 18.1 % (11.5-14.5); Red Blood Cell (RBC) Count 4.05 mill/uL (4.20-5.40); White Blood Cell (WBC) Count 8.8 10x3/uL (4.8-10.8)
[2022-04-10 13:07] LABS: INR-International Normal Ratio 1.2; Prothrombin Time 16.1 sec (12.0-14.7)
[2022-04-10 13:08] LABS: PTT 36.3 sec (22.9-36.1)
[2022-04-10 13:10] LABS: ALT (SGPT) 18 U/L (8-55); AST (SGOT) 15 U/L (5-34); Albumin 3.5 g/dL (3.4-4.8); Alkaline Phosphatase 111 U/L (40-110); Anion Gap 16 mmol/L (10-20); BUN (Urea Nitrogen) 9 mg/dL (9.8-20.1); Bilirubin, Total 0.3 mg/dL (0.2-1.2); Calc. Creatinine Clearance 0 mL/min (70-130); Carbon Dioxide 21 mmol/L (23-31); Chloride 104 mmol/L (98-107); Estimated GFR 70; Glucose 106 mg/dL (83-110); Potassium 3.5 mmol/L (3.5-5.1); Protein, Total 7.5 g/dL (5.8-8.1); Sodium 137 mmol/L (136-145)
[2022-04-10] MEDS ORDERED: Ipratropium/Albuterol 3 ML NEB ONE (15:33)
[2022-04-10] MEDS ORDERED: Albuterol 200 PUFF (6.7GM INHALER) ONE (15:35)
[2022-04-10] MEDS ORDERED: Iopamidol-370 76% 500 ML 1 ML ONE (15:42)
[2022-04-10 16:03] LABS: SARS-CoV-2 NAA Rapid Test Not Detected (NotDetected)
== END 2022-04-10 16:27 | disposition home or self-care (01) ==
LOC: ERS 12:12
DX: J18.9 Pneumonia, unspecified organism (principal); I10 Essential (primary) hypertension; Z20.822 Contact with and (suspected) exposure to COVID-19
CPT/HCPCS: 0240U; 71045; 71275; 80053; 83605; 83880; 84484; 85025; 85610; 85730; 87040; 94640; 36415; J7620; Q9967

== ENCOUNTER 2022-04-12 21:40 | Inpatient (IN) | payer MEDICARE, OTHER ==
[2022-04-12] MEDS ORDERED: Vancomycin 1 GM/200 ML (FROZEN) BAG ONE (22:10)
[2022-04-12] MEDS ORDERED: Cefepime 2 GM VIAL ONE ×2 (22:10→22:12)
[2022-04-12 22:39] LABS: #Eosinphils 0.2 thou/uL (0.0-0.7); #Lymphocytes 1.8 thou/uL (1.20-3.40); #Monocytes 0.6 thou/uL (0.11-0.59); #Neutrophils 6.7 thou/uL (1.40-6.50); %Basophils 0.3 % (0.0-1.0); %Eosinophils 1.8 % (0.0-10.0); %Lymphocytes 19.6 % (21.0-51.0); %Monocytes 6.4 % (0.0-10.0); Hemoglobin 10.7 g/dL (12.0-16.0); Mean Corpuscular HGB CONC 30.8 g/dL (32.0-36.0); Mean Corpuscular Hemoglobin 27.2 pg (27.0-31.0); Mean Corpuscular Volume 88.3 fl (78.0-98.0); Mean Platelet Volume 6.8 fL (7.4-10.4); Platelet Count 578 10x3/uL (130-400); RBC Distribution Width 17.8 % (11.5-14.5); Red Blood Cell (RBC) Count 3.94 mill/uL (4.20-5.40); White Blood Cell (WBC) Count 9.3 10x3/uL (4.8-10.8)
[2022-04-12 22:47] LABS: INR-International Normal Ratio 1.2; PTT 32.5 sec (22.9-36.1); Prothrombin Time 16.1 sec (12.0-14.7)
[2022-04-12 23:01] LABS: ALT (SGPT) 13 U/L (8-55); AST (SGOT) 13 U/L (5-34); Albumin 3.5 g/dL (3.4-4.8); Alkaline Phosphatase 95 U/L (40-110); Anion Gap 16 mmol/L (10-20); BUN (Urea Nitrogen) 6 mg/dL (9.8-20.1); Bilirubin, Total 0.4 mg/dL (0.2-1.2); Calc. Creatinine Clearance 0 mL/min (70-130); Calcium 8.9 mg/dL (7.8-10.44); Carbon Dioxide 20 mmol/L (23-31); Chloride 100 mmol/L (98-107); Estimated GFR 55; Globulin 3.8 g/dL (2.4-3.5); Glucose 94 mg/dL (83-110); Potassium 3.3 mmol/L (3.5-5.1); Protein, Total 7.3 g/dL (5.8-8.1); Sodium 133 mmol/L (136-145)
[2022-04-12 23:02] LABS: CRP (Inflammatory) 1.06 mg/dL (= or < 0.5)
[2022-04-12 23:04] LABS: SARS-CoV-2 NAA Rapid Test Not Detected (NotDetected)
[2022-04-13] MEDS ORDERED: Acetaminophen 325 MG TAB PO PRN ×3 (00:03→06:03)
[2022-04-13] MEDS ORDERED: Lactated Ringer's 1,000 ML IV SCH (00:15)
[2022-04-13] MEDS ORDERED: HYDROcodone/Acetaminophen 5/325 mg Tablet PO PRN (00:24)
[2022-04-13 00:26] LABS: Magnesium 1.6 mg/dL (1.6-2.6)
[2022-04-13] MEDS ORDERED: Acetaminophen 500 MG TAB PO SCH (00:30)
[2022-04-13] MEDS ORDERED: HYDROcodone/Acetaminophen 5/325 mg Tablet ONE (00:31)
[2022-04-13 00:43] VITALS: BMI 23.3
[2022-04-13 01:48] LABS: Lactic Acid 1.3 mmol/L (0.5-2.2)
[2022-04-13 02:05] LABS: Troponin I 0.012 ng/mL (< 0.028)
[2022-04-13] MEDS ORDERED: Magnesium 2 GM/50 ML(in water) 2 GM in Premix Bag 1 BAG IVPB SCH (02:15)
[2022-04-13] MEDS ORDERED: Magnesium 2 GM/50 ML BAG (IN WATER) ONE (02:52)
[2022-04-13] MEDS ORDERED: Morphine 2 MG/ML VIAL SLOW IVP SCH (03:45)
[2022-04-13] MEDS ORDERED: Morphine 2 MG/ML VIAL ONE (03:53)
[2022-04-13 04:46] LABS: #Eosinphils 0.2 thou/uL (0.0-0.7); #Lymphocytes 1.8 thou/uL (1.20-3.40); #Neutrophils 6.4 thou/uL (1.40-6.50); %Basophils 0.2 % (0.0-1.0); %Eosinophils 1.6 % (0.0-10.0); %Monocytes 10.1 % (0.0-10.0); Hemoglobin 9.8 g/dL (12.0-16.0); Mean Corpuscular HGB CONC 32.7 g/dL (32.0-36.0); Mean Corpuscular Hemoglobin 28.5 pg (27.0-31.0); Mean Corpuscular Volume 87.1 fl (78.0-98.0); Mean Platelet Volume 7.2 fL (7.4-10.4); Platelet Count 497 10x3/uL (130-400); RBC Distribution Width 17.7 % (11.5-14.5); Red Blood Cell (RBC) Count 3.43 mill/uL (4.20-5.40); White Blood Cell (WBC) Count 9.3 10x3/uL (4.8-10.8)
[2022-04-13 05:02] LABS: Anion Gap 15 mmol/L (10-20); BUN (Urea Nitrogen) 8 mg/dL (9.8-20.1); Calc. Creatinine Clearance 40 mL/min (70-130); Calcium 8.5 mg/dL (7.8-10.44); Carbon Dioxide 19 mmol/L (23-31); Chloride 100 mmol/L (98-107); Estimated GFR 57; Glucose 76 mg/dL (83-110); Potassium 3.3 mmol/L (3.5-5.1); Sodium 131 mmol/L (136-145)
[2022-04-13 05:06] LABS: Troponin I 0.011 ng/mL (< 0.028)
[2022-04-13 05:06] LABS: Bilirubin Negative (Negative); Blood, Urine Negative (Negative); Clarity Clear (Clear); Glucose, Urine (Dipstick) Normal (Negative); Ketone, Urine Negative (Negative); Leukocyte Negative Leu/uL (Negative); Nitrite Negative (Negative); Protein, Urine (Dipstick) Negative (Neg-Trace); Specific Gravity, Urine 1.011 (1.002-1.036); Urobilinogen Normal mg/dL (Less than 2)
[2022-04-13] MEDS ORDERED: Potassium Chloride 20 MEQ TAB PO SCH (06:30)
[2022-04-13] MEDS ORDERED: Potassium Chloride 20 MEQ TAB ONE (07:11)
[2022-04-13 07:20] VITALS: TEMP 97.4
[2022-04-13] MEDS ORDERED: Metoprolol Tartrate 25 MG TAB ONE (08:56)
[2022-04-13] MEDS ORDERED: Amlodipine 5 MG TAB ONE (08:56)
[2022-04-13] MEDS ORDERED: Acetaminophen 325 MG TAB ONE (08:57)
[2022-04-13] MEDS ORDERED: Lidocaine 5% Patch TD SCH (09:00)
[2022-04-13] MEDS ORDERED: Amlodipine 5 MG TAB PO SCH (09:00)
[2022-04-13] MEDS ORDERED: guaiFENesin ER 600 MG TAB PO SCH (09:00)
[2022-04-13] MEDS ORDERED: Polyethylene Glycol 3350 17 GM Packet PO SCH (09:00)
[2022-04-13] MEDS ORDERED: Senokot S 8.6-50 MG TAB PO SCH (09:00)
[2022-04-13] MEDS ORDERED: Metoprolol Tartrate 25 MG TAB PO SCH (09:00)
[2022-04-13] MEDS ORDERED: levETIRAcetam 500 MG TAB PO SCH (09:00)
[2022-04-13 09:09] VITALS: BP 168/97
[2022-04-13] MEDS ORDERED: Ketorolac Tromethamine 30 MG/ML VIAL IVP SCH (11:00)
[2022-04-13] MEDS ORDERED: Cefepime 1 GM in Sodium Chloride 0.9% 100 ML IVPB SCH (11:00)
[2022-04-13] MEDS ORDERED: Ketorolac Tromethamine 30 MG/ML VIAL ONE (11:53)
[2022-04-13] MEDS ORDERED: HYDROcodone/Acetaminophen 10/325 mg Tablet PO SCH (12:00)
[2022-04-13] MEDS ORDERED: HYDROcodone/Acetaminophen 10/325 mg Tablet ONE (12:31)
[2022-04-13] MEDS ORDERED: Transdermal Patch Removal TOP SCH (21:00)
== END 2022-04-13 15:07 | disposition home health service (06) | DRG 202 ==
LOC: ERS 21:40 → ERHOLD 23:13
PROVIDERS: ADMIT Family Medicine; ATTEND Family Medicine
DX: J40 Bronchitis, not specified as acute or chronic (principal); J18.9 Pneumonia, unspecified organism; E87.1 Hypo-osmolality and hyponatremia; J06.9 Acute upper respiratory infection, unspecified; I10 Essential (primary) hypertension; Z20.822 Contact with and (suspected) exposure to COVID-19; G20 Parkinson's disease; I48.0 Paroxysmal atrial fibrillation; E87.6 Hypokalemia; E83.42 Hypomagnesemia; D64.9 Anemia, unspecified; Z88.0 Allergy status to penicillin; Z88.1 Allergy status to other antibiotic agents; Z88.8 Allergy status to other drugs, medicaments and biological substances; Z79.899 Other long term (current) drug therapy; Z90.49 Acquired absence of other specified parts of digestive tract; Z87.891 Personal history of nicotine dependence
CPT/HCPCS: 36415; 71045; 71275; 80048; 80053; 81003; 82550; 83605; 83735; 83880; 84145; 84436; 84443; 84484; 85025; 85610; 85730; 86140; 87040; 87081; 87086; 87149; 93005; 94640; 96365; 96367; J0692; J1885; J1956; J2272; J3370-JW; J3475; J7120; J7620; Q9967

== ENCOUNTER 2022-04-25 12:26 | Inpatient (IN) | payer MEDICARE, OTHER ==
[2022-04-25] MEDS ORDERED: Ondansetron PF 4 MG/2 ML Vial ONE (12:44)
[2022-04-25 13:34] LABS: Hemoglobin 10.3 g/dL (12.0-16.0); Mean Corpuscular HGB CONC 31.6 g/dL (32.0-36.0); Mean Corpuscular Volume 88.5 fl (78.0-98.0); Mean Platelet Volume 9.1 fL (7.4-10.4); Platelet Count 209 10x3/uL (130-400); RBC Distribution Width 17.5 % (11.5-14.5); Red Blood Cell (RBC) Count 3.68 mill/uL (4.20-5.40); White Blood Cell (WBC) Count 6.9 10x3/uL (4.8-10.8)
[2022-04-25 13:51] LABS: ALT (SGPT) 13 U/L (8-55); AST (SGOT) 22 U/L (5-34); Albumin 3.1 g/dL (3.4-4.8); Alkaline Phosphatase 87 U/L (40-110); Anion Gap 16 mmol/L (10-20); Anisocytosis SLIGHT = 6-15 cells (100X) (0-5/hpf); BUN (Urea Nitrogen) 12 mg/dL (9.8-20.1); Bilirubin, Total 0.3 mg/dL (0.2-1.2); Calc. Creatinine Clearance 0 mL/min (70-130); Calcium 8.3 mg/dL (7.8-10.44); Carbon Dioxide 32 mmol/L (23-31); Chloride 99 mmol/L (98-107); Estimated GFR 62; Globulin 3.6 g/dL (2.4-3.5); Glucose 112 mg/dL (83-110); Hypochromia SLIGHT = 6-15 cells (100X) (0-5/hpf); Lipase Less than 4 U/L (8-78); Lymphocytes 28 % (21-51); MDiff Complete? YES; Monocytes 4 % (0-10); Neutrophil 58 % (42-75); Ovalocytes SLIGHT = 2-5 cells (100X) (0-1/hpf); Platelet Morphology Comment Appears Adequate; Polychromasia SLIGHT = 2-3 cells (100X) (0-2/hpf); Protein, Total 6.7 g/dL (5.8-8.1); Reactive Lymphocytes 10 % (0-10); Sodium 143 mmol/L (136-145); Stomatocytes SLIGHT = 2-5 cells (100X) (0-1/hpf)
[2022-04-25 14:12] LABS: SARS-CoV-2 NAA Rapid Test Not Detected (NotDetected)
[2022-04-25] MEDS ORDERED: Magnesium 2 GM/50 ML BAG (IN WATER) ONE (15:36)
[2022-04-25 16:00] LABS: Bilirubin Negative (Negative); Blood, Urine Negative (Negative); Glucose, Urine (Dipstick) Normal (Negative); Ketone, Urine Negative (Negative); Leukocyte Negative Leu/uL (Negative); Nitrite Negative (Negative); Protein, Urine (Dipstick) 100 mg/dL (Neg-Trace); RBC/HPF 0-3 HPF (0-3); Squamous Epithelial 21-50 HPF (0-3); Urobilinogen Normal mg/dL (Less than 2); WBC/HPF 0-3 HPF (0-3); pH, Urine 8.5 (5.0-9.0)
[2022-04-25 16:05] LABS: Bacteria/HPF 1+ HPF (None Seen); Clarity Cloudy (Clear)
[2022-04-25 16:57] LABS: Lactic Acid 1.8 mmol/L (0.5-2.2)
[2022-04-25 17:00] LABS: Magnesium 1.7 mg/dL (1.6-2.6)
[2022-04-25] MEDS ORDERED: HYDROcodone/Acetaminophen 10/325 mg Tablet PO PRN (17:40)
[2022-04-25 18:19] VITALS: BMI 21.4
[2022-04-25 18:20] LABS: Magnesium 2.1 mg/dL (1.6-2.6); Phosphorus 2.6 mg/dL (2.3-4.7)
[2022-04-25] MEDS: Morphine 2 MG/ML VIAL SLOW IVP PRN (19:24)
[2022-04-25] MEDS: traMADol HCl 50 MG TAB PO PRN (20:37)
[2022-04-25] MEDS: Lactated Ringer's 1,000 ML IV SCH (20:43)
[2022-04-25] MEDS ORDERED: Famotidine 20 MG TAB PO SCH (21:00)
[2022-04-26 05:00] LABS: #Eosinphils 0.3 thou/uL (0.0-0.7); #Lymphocytes 2.9 thou/uL (1.20-3.40); #Monocytes 0.9 thou/uL (0.11-0.59); #Neutrophils 4.4 thou/uL (1.40-6.50); %Basophils 0.2 % (0.0-1.0); %Eosinophils 3.1 % (0.0-10.0); %Lymphocytes 34.2 % (21.0-51.0); %Monocytes 10.3 % (0.0-10.0); %Neutrophils 52.2 % (42.0-75.0); Hemoglobin 9.9 g/dL (12.0-16.0); Mean Corpuscular HGB CONC 32.4 g/dL (32.0-36.0); Mean Corpuscular Hemoglobin 28.9 pg (27.0-31.0); Mean Corpuscular Volume 89.2 fl (78.0-98.0); Mean Platelet Volume 8.4 fL (7.4-10.4); Platelet Count 323 10x3/uL (130-400); RBC Distribution Width 17.4 % (11.5-14.5); Red Blood Cell (RBC) Count 3.42 mill/uL (4.20-5.40); White Blood Cell (WBC) Count 8.5 10x3/uL (4.8-10.8)
[2022-04-26 05:18] LABS: Anion Gap 13 mmol/L (10-20); BUN (Urea Nitrogen) 11 mg/dL (9.8-20.1); Calc. Creatinine Clearance 44 mL/min (70-130); Calcium 8.2 mg/dL (7.8-10.44); Carbon Dioxide 24 mmol/L (23-31); Chloride 103 mmol/L (98-107); Estimated GFR 71; Glucose 114 mg/dL (83-110); Sodium 137 mmol/L (136-145)
[2022-04-26] MEDS: Lactated Ringer's 1,000 ML IV SCH ×2 (06:33→15:07)
[2022-04-26] MEDS: traMADol HCl 50 MG TAB PO PRN ×2 (06:53→20:40)
[2022-04-26] MEDS ORDERED: Amitriptyline HCl 25 MG TAB PO SCH (09:00)
[2022-04-26] MEDS: Metamucil PACK PO SCH (09:01)
[2022-04-26] MEDS ORDERED: Potassium Chloride 40 MEQ in Premix Bag 1 BAG IVPB SCH (10:00)
[2022-04-26] MEDS: Lisinopril 20 MG TAB PO SCH (10:47)
[2022-04-26] MEDS ORDERED: Scopolamine 1.5 mg/72 hour Patch TD SCH (11:00)
[2022-04-26] MEDS: Potassium Chloride 20 MEQ in Premix Bag 1 BAG IVPB SCH ×2 (11:07→15:07)
[2022-04-26] MEDS: Morphine 2 MG/ML VIAL SLOW IVP PRN (11:12)
[2022-04-26] MEDS ORDERED: Lidocaine 3%/Hydrocortisone 0.5% CREAM TP PRN (18:51)
[2022-04-26] MEDS ORDERED: Acetaminophen 500 MG TAB PO PRN (18:51)
[2022-04-26] MEDS: Pantoprazole 40 MG VIAL IVP SCH (20:40)
[2022-04-26] MEDS ORDERED: Famotidine 20 MG TAB PO SCH (21:00)
[2022-04-26] MEDS ORDERED: Melatonin 3 MG TAB PO SCH (21:00)
[2022-04-27] MEDS: Lactated Ringer's 1,000 ML IV SCH (02:00)
[2022-04-27 07:13] LABS: #Eosinphils 0.2 thou/uL (0.0-0.7); #Lymphocytes 2.4 thou/uL (1.20-3.40); #Monocytes 0.6 thou/uL (0.11-0.59); #Neutrophils 3.8 thou/uL (1.40-6.50); %Basophils 0.6 % (0.0-1.0); %Eosinophils 3.3 % (0.0-10.0); %Lymphocytes 34.3 % (21.0-51.0); %Monocytes 7.8 % (0.0-10.0); Mean Corpuscular HGB CONC 31.9 g/dL (32.0-36.0); Mean Corpuscular Hemoglobin 28.4 pg (27.0-31.0); Mean Corpuscular Volume 88.9 fl (78.0-98.0); Platelet Count 314 10x3/uL (130-400); RBC Distribution Width 17.3 % (11.5-14.5); Red Blood Cell (RBC) Count 3.15 mill/uL (4.20-5.40); White Blood Cell (WBC) Count 7.1 10x3/uL (4.8-10.8)
[2022-04-27 07:30] LABS: ALT (SGPT) 8 U/L (8-55); AST (SGOT) 11 U/L (5-34); Albumin 2.9 g/dL (3.4-4.8); Alkaline Phosphatase 76 U/L (40-110); Anion Gap 11 mmol/L (10-20); BUN (Urea Nitrogen) 8 mg/dL (9.8-20.1); Bilirubin, Total 0.4 mg/dL (0.2-1.2); Calc. Creatinine Clearance 51 mL/min (70-130); Calcium 8.2 mg/dL (7.8-10.44); Carbon Dioxide 21 mmol/L (23-31); Chloride 108 mmol/L (98-107); Estimated GFR 83; Globulin 2.6 g/dL (2.4-3.5); Glucose 92 mg/dL (83-110); Potassium 4.1 mmol/L (3.5-5.1); Protein, Total 5.5 g/dL (5.8-8.1); Sodium 136 mmol/L (136-145)
[2022-04-27 08:42] VITALS: TEMP 97.4
[2022-04-27] MEDS: Lisinopril 20 MG TAB PO SCH (08:42)
[2022-04-27] MEDS: Pantoprazole 40 MG VIAL IVP SCH (08:43)
[2022-04-27] MEDS: Metamucil PACK PO SCH (08:44)
[2022-04-27] MEDS: traMADol HCl 50 MG TAB PO PRN (08:48)
[2022-04-27 12:51] VITALS: BP 167/70
== END 2022-04-27 13:41 | disposition home or self-care (01) | DRG 392 ==
LOC: ERS 12:26 → 2NO 15:47 → OBSVTOIN 04-27 12:05
PROVIDERS: ADMIT Student in an Organized Health Care Education/Training Program; ATTEND Student in an Organized Health Care Education/Training Program
DX: A08.4 Viral intestinal infection, unspecified (principal); K55.1 Chronic vascular disorders of intestine; Z20.822 Contact with and (suspected) exposure to COVID-19; I48.0 Paroxysmal atrial fibrillation; R53.81 Other malaise; E86.0 Dehydration; E86.9 Volume depletion, unspecified; G89.29 Other chronic pain; Z66 Do not resuscitate; I45.81 Long QT syndrome; G20 Parkinson's disease; I10 Essential (primary) hypertension; G62.9 Polyneuropathy, unspecified; Z60.2 Problems related to living alone; Z88.1 Allergy status to other antibiotic agents; Z88.8 Allergy status to other drugs, medicaments and biological substances; Z88.0 Allergy status to penicillin; Z79.899 Other long term (current) drug therapy; Z90.49 Acquired absence of other specified parts of digestive tract; Z82.49 Family history of ischemic heart disease and other diseases of the circulatory system
CPT/HCPCS: 36415; 71045; 74177; 80048; 80053; 81003; 81015; 83605; 83690; 83735; 84100; 84484; 85025; 87086; 87324; 87449; 87493; 93005; 93010; 96361; 96365; 96375; 96376; C9113; G0378; J2272; J2405; J3475; J3480; J7120; Q9967

== ENCOUNTER 2022-07-06 08:32 | Emergency (ER) | payer MEDICARE, OTHER ==
[2022-07-06] MEDS ORDERED: traMADol HCl 50 MG TAB ONE ×2 (08:45→09:19)
[2022-07-06 09:13] LABS: #Eosinphils 0.3 thou/uL (0.0-0.7); #Lymphocytes 2.3 thou/uL (1.20-3.40); #Monocytes 0.6 thou/uL (0.11-0.59); #Neutrophils 2.3 thou/uL (1.40-6.50); %Basophils 0.7 % (0.0-1.0); %Eosinophils 5.1 % (0.0-10.0); %Lymphocytes 41.9 % (21.0-51.0); %Monocytes 10.5 % (0.0-10.0); %Neutrophils 41.8 % (42.0-75.0); Hemoglobin 7.5 g/dL (12.0-16.0); Mean Corpuscular HGB CONC 31.8 g/dL (32.0-36.0); Mean Corpuscular Hemoglobin 27.8 pg (27.0-31.0); Mean Corpuscular Volume 87.3 fl (78.0-98.0); Mean Platelet Volume 6.6 fL (7.4-10.4); Platelet Count 477 10x3/uL (130-400); RBC Distribution Width 15.4 % (11.5-14.5); White Blood Cell (WBC) Count 5.4 10x3/uL (4.8-10.8)
[2022-07-06 09:41] LABS: ALT (SGPT) 12 U/L (8-55); AST (SGOT) 14 U/L (5-34); Albumin 3.5 g/dL (3.4-4.8); Alkaline Phosphatase 98 U/L (40-110); Anion Gap 11 mmol/L (10-20); BUN (Urea Nitrogen) 23 mg/dL (9.8-20.1); Bilirubin, Total 0.2 mg/dL (0.2-1.2); Calc. Creatinine Clearance 0 mL/min (70-130); Calcium 8.6 mg/dL (7.8-10.44); Carbon Dioxide 23 mmol/L (23-31); Chloride 107 mmol/L (98-107); Estimated GFR 51; Glucose 90 mg/dL (83-110); Potassium 4.8 mmol/L (3.5-5.1); Protein, Total 6.5 g/dL (5.8-8.1); Sodium 136 mmol/L (136-145)
== END 2022-07-06 10:20 | disposition home or self-care (01) ==
LOC: ERS 08:32
DX: D64.9 Anemia, unspecified (principal); I10 Essential (primary) hypertension
CPT/HCPCS: 36415; 80053; 82274; 85025; 99284

== ENCOUNTER 2022-10-08 11:41 | Inpatient (IN) | payer MEDICARE, OTHER ==
[~2022-10-08 11:41] MED LIST changes: -Iopamidol-370 76% 500 ML 1 ML ONE; +Iopamidol-370 76% 500 ML MDV (1 ML CHARGE) ONE
[2022-10-08] MEDS ORDERED: dilTIAZem 25 MG/5 ML VIAL ONE (12:01)
[2022-10-08] MEDS ORDERED: dilTIAZem 125 MG/25 ML SDV ONE (12:01)
[2022-10-08 12:24] LABS: #Monocytes 0.3 thou/uL (0.11-0.59); #Neutrophils 6.4 thou/uL (1.40-6.50); %Basophils 0.4 % (0.0-1.0); %Eosinophils 0.1 % (0.0-10.0); %Lymphocytes 11.5 % (21.0-51.0); %Monocytes 4.4 % (0.0-10.0); %Neutrophils 83.1 % (42.0-75.0); Hematocrit 24.5 % (36.0-47.0); Hemoglobin 6.9 g/dL (12.0-16.0); Mean Corpuscular HGB CONC 28.2 g/dL (32.0-36.0); Mean Corpuscular Volume 74.5 fl (78.0-98.0); Mean Platelet Volume 9.8 fL (7.4-10.4); Platelet Count 456 10x3/uL (130-400); RBC Distribution Width 17.1 % (11.5-14.5); Red Blood Cell (RBC) Count 3.29 mill/uL (4.20-5.40); White Blood Cell (WBC) Count 7.7 10x3/uL (4.8-10.8)
[2022-10-08] MEDS ORDERED: Ondansetron PF 4 MG/2 ML Vial ONE (12:27)
[2022-10-08 12:51] LABS: CellaVision Operator ID LAB.GE; Hypochromia SLIGHT = 6-15 cells HPF (0-5); Microcytosis SLIGHT = 6-15 cells HPF (0-5); Ovalocytes SLIGHT = 2-5 cells HPF (0-1); Platelet Adequacy Comment Platelets Increased; Polychromasia MODERATE = 3-4 cells HPF (0-2); Target Cells SLIGHT = 2-5 cells HPF (0-1)
[2022-10-08 12:57] LABS: ALT (SGPT) 15 U/L (8-55); AST (SGOT) 15 U/L (5-34); Albumin 3.9 g/dL (3.4-4.8); Alkaline Phosphatase 136 U/L (40-110); Anion Gap 13 mmol/L (10-20); BUN (Urea Nitrogen) 11 mg/dL (9.8-20.1); Bilirubin, Total 0.5 mg/dL (0.2-1.2); Calc. Creatinine Clearance 0 mL/min (70-130); Calcium 9.4 mg/dL (7.8-10.44); Carbon Dioxide 21 mmol/L (23-31); Chloride 106 mmol/L (98-107); Estimated GFR 54; Globulin 3.4 g/dL (2.4-3.5); Glucose 124 mg/dL (83-110); Lipase Less than 4 U/L (8-78); Potassium 3.3 mmol/L (3.5-5.1); Protein, Total 7.3 g/dL (5.8-8.1); Sodium 137 mmol/L (136-145)
[2022-10-08] MEDS ORDERED: Morphine 2 MG/ML VIAL ONE (13:16)
[2022-10-08] MEDS ORDERED: Morphine 4 MG/ML VIAL ONE (16:37)
[2022-10-08] MEDS ORDERED: Electrolyte Replacement Protocol 1 EACH FS SCH (17:00)
[2022-10-08] MEDS ORDERED: Ipratropium/Albuterol 3 ML NEB NEB PRN (17:03)
[2022-10-08] MEDS ORDERED: dilTIAZem 125 MG in Sodium Chloride 0.9% 100 ML IVPB SCH (17:15)
[2022-10-08] MEDS ORDERED: Lactated Ringer's 1,000 ML IV SCH (17:15)
[2022-10-08] MEDS ORDERED: LevoFLOXacin 750 mg/D5W 750 MG in Premix Bag 1 BAG IVPB SCH (20:00)
[2022-10-08 20:06] LABS: Lactic Acid 2.1 mmol/L (0.5-2.2)
[2022-10-08] MEDS: levETIRAcetam 500 MG TAB PO SCH (20:51)
[2022-10-08] MEDS: traMADol HCl 50 MG TAB PO PRN (20:52)
[2022-10-08] MEDS: Pantoprazole 40 MG VIAL IVP SCH (20:55)
[2022-10-08] MEDS ORDERED: Potassium Chloride 20 MEQ TAB PO SCH (22:00)
[2022-10-08 22:04] LABS: Legionella Urinary Ag Negative (Negative); Strep pneumo Urine Ag POSITIVE (NEGATIVE)
[2022-10-08] MEDS ORDERED: tiZANidine HCl 4 MG TAB PO SCH (23:00)
[2022-10-09] MEDS: Metoclopramide HCl 10 MG/2 ML VIAL IVP PRN (03:22)
[2022-10-09] MEDS: traMADol HCl 50 MG TAB PO PRN ×3 (04:40→23:34)
[2022-10-09 05:16] LABS: #Eosinphils 0.2 thou/uL (0.0-0.7); #Monocytes 0.8 thou/uL (0.11-0.59); #Neutrophils 6.5 thou/uL (1.40-6.50); %Basophils 0.4 % (0.0-1.0); %Eosinophils 1.7 % (0.0-10.0); %Monocytes 8.5 % (0.0-10.0); %Neutrophils 72.1 % (42.0-75.0); Hematocrit 28.3 % (36.0-47.0); Hemoglobin 8.8 g/dL (12.0-16.0); Mean Corpuscular HGB CONC 31.1 g/dL (32.0-36.0); Mean Corpuscular Hemoglobin 25.4 pg (27.0-31.0); Mean Platelet Volume 10.1 fL (7.4-10.4); RBC Distribution Width 17.2 % (11.5-14.5); Red Blood Cell (RBC) Count 3.46 mill/uL (4.20-5.40)
[2022-10-09 05:24] LABS: Lactic Acid 0.8 mmol/L (0.5-2.2)
[2022-10-09 06:08] LABS: Mean Corpuscular Volume 81.8 fl (78.0-98.0); Platelet Count 314 10x3/uL (130-400)
[2022-10-09 06:52] LABS: ALT (SGPT) 11 U/L (8-55); AST (SGOT) 13 U/L (5-34); Albumin 3.1 g/dL (3.4-4.8); Alkaline Phosphatase 112 U/L (40-110); Anion Gap 11 mmol/L (10-20); BUN (Urea Nitrogen) 12 mg/dL (9.8-20.1); Calc. Creatinine Clearance 34 mL/min (70-130); Calcium 8.1 mg/dL (7.8-10.44); Carbon Dioxide 17 mmol/L (23-31); Chloride 110 mmol/L (98-107); Estimated GFR 51; Globulin 2.7 g/dL (2.4-3.5); Glucose 100 mg/dL (83-110); Magnesium 1.9 mg/dL (1.6-2.6); Potassium 4.4 mmol/L (3.5-5.1); Protein, Total 5.8 g/dL (5.8-8.1); Sodium 134 mmol/L (136-145)
[2022-10-09] MEDS ORDERED: Magnesium 2 GM/50 ML(in water) 2 GM in Premix Bag 1 BAG IVPB SCH (08:00)
[2022-10-09] MEDS ORDERED: traMADol HCl 50 MG TAB PO PRN (09:06)
[2022-10-09] MEDS ORDERED: Furosemide 40 MG/4 ML VIAL SLOW IVP SCH ×2 (09:15→17:00)
[2022-10-09] MEDS ORDERED: Lidocaine 4% Patch TD SCH (09:15)
[2022-10-09] MEDS: Albumin 25% 25 GM/100 ML BOT IVPB SCH ×3 (09:51→21:21)
[2022-10-09] MEDS: levETIRAcetam 500 MG TAB PO SCH ×2 (09:52→20:34)
[2022-10-09] MEDS: Acetaminophen 325 MG TAB PO PRN (09:52)
[2022-10-09] MEDS: Pantoprazole 40 MG VIAL IVP SCH ×2 (09:55→20:36)
[2022-10-09] MEDS: Lidocaine 4% Patch TD SCH (09:55)
[2022-10-09] MEDS: Morphine 2 MG/ML VIAL SLOW IVP PRN ×4 (11:41→21:29)
[2022-10-09] MEDS: Metoprolol Tartrate 25 MG TAB PO SCH (20:34)
[2022-10-09] MEDS: HYDROcodone/Acetaminophen 5/325 mg Tablet PO PRN (20:37)
[2022-10-09] MEDS ORDERED: Enoxaparin 120 MG/0.8 ML SYRINGE SC SCH (21:00)
[2022-10-09] MEDS: Transdermal Patch Removal TOP SCH (23:40)
[2022-10-10] MEDS: Morphine 2 MG/ML VIAL SLOW IVP PRN ×6 (01:20→21:51)
[2022-10-10 05:24] LABS: #Eosinphils 0.4 thou/uL (0.0-0.7); #Neutrophils 5.1 thou/uL (1.40-6.50); %Basophils 0.5 % (0.0-1.0); %Eosinophils 4.7 % (0.0-10.0); %Lymphocytes 25.5 % (21.0-51.0); %Monocytes 10.8 % (0.0-10.0); Hematocrit 30.4 % (36.0-47.0); Hemoglobin 9.5 g/dL (12.0-16.0); Mean Corpuscular HGB CONC 31.3 g/dL (32.0-36.0); Mean Corpuscular Hemoglobin 24.7 pg (27.0-31.0); Mean Platelet Volume 9.5 fL (7.4-10.4); Platelet Count 305 10x3/uL (130-400); RBC Distribution Width 18.6 % (11.5-14.5); Red Blood Cell (RBC) Count 3.85 mill/uL (4.20-5.40); White Blood Cell (WBC) Count 8.8 10x3/uL (4.8-10.8)
[2022-10-10] MEDS: HYDROcodone/Acetaminophen 5/325 mg Tablet PO PRN ×3 (05:32→19:48)
[2022-10-10] MEDS: Albumin 25% 25 GM/100 ML BOT IVPB SCH (05:38)
[2022-10-10 06:05] LABS: Anion Gap 13 mmol/L (10-20); BUN (Urea Nitrogen) 19 mg/dL (9.8-20.1); Calc. Creatinine Clearance 28 mL/min (70-130); Carbon Dioxide 24 mmol/L (23-31); Chloride 102 mmol/L (98-107); Estimated GFR 40; Glucose 99 mg/dL (83-110); Magnesium 1.6 mg/dL (1.6-2.6); Potassium 3.6 mmol/L (3.5-5.1); Sodium 135 mmol/L (136-145)
[2022-10-10] MEDS ORDERED: Magnesium 2 GM/50 ML(in water) 2 GM in Premix Bag 1 BAG IVPB SCH (08:00)
[2022-10-10] MEDS: Lidocaine 4% Patch TD SCH (08:38)
[2022-10-10] MEDS: Pantoprazole 40 MG VIAL IVP SCH (08:38)
[2022-10-10] MEDS: Metoprolol Tartrate 25 MG TAB PO SCH (08:40)
[2022-10-10] MEDS: levETIRAcetam 500 MG TAB PO SCH ×2 (08:40→21:50)
[2022-10-10] MEDS: traMADol HCl 50 MG TAB PO PRN (08:42)
[2022-10-10] MEDS ORDERED: Non-Formulary Item 1 EACH (Cetirizine Hcl [All Day Allergy Relief] 10 MG Capsule) PO PRN (13:28)
[2022-10-10] MEDS ORDERED: Metoprolol Tartrate 25 MG TAB PO SCH ×2 (13:29→13:30)
[2022-10-10] MEDS ORDERED: Non-Formulary Item 1 EACH (Benazepril Hcl [Benazepril Hcl] 20 MG Tablet) PO SCH (13:29)
[2022-10-10] MEDS ORDERED: Loratadine 10 MG TAB PO PRN (13:53)
[2022-10-10] MEDS: Carbidopa/Levodopa 10-100 mg Tablet PO SCH ×2 (14:22→21:48)
[2022-10-10] MEDS: Gabapentin 300 MG CAP PO SCH ×2 (14:23→21:50)
[2022-10-10] MEDS ORDERED: Gabapentin 300 MG CAP PO SCH (15:00)
[2022-10-10] MEDS ORDERED: Dicyclomine 20 MG TAB PO SCH (17:00)
[2022-10-10] MEDS: Metoclopramide HCl 10 MG/2 ML VIAL IVP PRN (17:36)
[2022-10-10] MEDS: Dicyclomine 20 MG TAB PO SCH ×2 (17:42→21:51)
[2022-10-10] MEDS ORDERED: LevoFLOXacin 750 mg/D5W 750 MG in Premix Bag 1 BAG IVPB SCH (20:00)
[2022-10-10] MEDS ORDERED: Atorvastatin Calcium 20 MG TAB PO SCH (21:00)
[2022-10-10] MEDS: Lisinopril 20 MG TAB PO SCH (21:49)
[2022-10-10] MEDS: Atorvastatin Calcium 20 MG TAB PO SCH (21:50)
[2022-10-10] MEDS: Metoprolol Tartrate 50 MG TAB PO SCH (21:50)
[2022-10-10] MEDS: Transdermal Patch Removal TOP SCH (21:52)
[2022-10-11] MEDS: Morphine 2 MG/ML VIAL SLOW IVP PRN ×6 (01:06→22:16)
[2022-10-11 05:33] LABS: #Eosinphils 0.4 thou/uL (0.0-0.7); #Monocytes 1.1 thou/uL (0.11-0.59); #Neutrophils 6.9 thou/uL (1.40-6.50); %Basophils 0.4 % (0.0-1.0); %Eosinophils 3.9 % (0.0-10.0); %Lymphocytes 20.4 % (21.0-51.0); %Monocytes 10.2 % (0.0-10.0); %Neutrophils 64.7 % (42.0-75.0); Hematocrit 35.2 % (36.0-47.0); Hemoglobin 10.8 g/dL (12.0-16.0); Mean Corpuscular HGB CONC 30.7 g/dL (32.0-36.0); Mean Corpuscular Hemoglobin 24.9 pg (27.0-31.0); Mean Corpuscular Volume 81.3 fl (78.0-98.0); Mean Platelet Volume 9.9 fL (7.4-10.4); Platelet Count 331 10x3/uL (130-400); RBC Distribution Width 20.3 % (11.5-14.5); Red Blood Cell (RBC) Count 4.33 mill/uL (4.20-5.40); White Blood Cell (WBC) Count 10.7 10x3/uL (4.8-10.8)
[2022-10-11 05:58] LABS: Anion Gap 14 mmol/L (10-20); BUN (Urea Nitrogen) 22 mg/dL (9.8-20.1); Calc. Creatinine Clearance 32 mL/min (70-130); Carbon Dioxide 20 mmol/L (23-31); Chloride 101 mmol/L (98-107); Estimated GFR 48; Glucose 107 mg/dL (83-110); Potassium 4.2 mmol/L (3.5-5.1); Sodium 131 mmol/L (136-145)
[2022-10-11] MEDS ORDERED: Magnesium 2 GM/50 ML(in water) 2 GM in Premix Bag 1 BAG IVPB SCH (08:00)
[2022-10-11] MEDS: Metoprolol Tartrate 50 MG TAB PO SCH ×2 (09:37→20:58)
[2022-10-11] MEDS: Lidocaine 4% Patch TD SCH (09:37)
[2022-10-11] MEDS: Carbidopa/Levodopa 10-100 mg Tablet PO SCH ×3 (09:37→20:57)
[2022-10-11] MEDS: Dicyclomine 20 MG TAB PO SCH ×4 (09:37→20:58)
[2022-10-11] MEDS: Lisinopril 20 MG TAB PO SCH ×2 (09:37→20:57)
[2022-10-11] MEDS: Gabapentin 300 MG CAP PO SCH ×3 (09:37→20:57)
[2022-10-11] MEDS: levETIRAcetam 500 MG TAB PO SCH ×2 (09:37→20:58)
[2022-10-11] MEDS: traMADol HCl 50 MG TAB PO PRN (16:31)
[2022-10-11] MEDS: Atorvastatin Calcium 20 MG TAB PO SCH (20:58)
[2022-10-11] MEDS: Transdermal Patch Removal TOP SCH (20:59)
[2022-10-12] MEDS: HYDROcodone/Acetaminophen 10/325 mg Tablet PO PRN ×3 (00:47→20:16)
[2022-10-12] MEDS: Morphine 2 MG/ML VIAL SLOW IVP PRN ×5 (03:09→21:43)
[2022-10-12 06:28] LABS: #Basophils 0.1 thou/uL (0.0-0.2); #Eosinphils 0.4 thou/uL (0.0-0.7); #Monocytes 1.7 thou/uL (0.11-0.59); #Neutrophils 7.1 thou/uL (1.40-6.50); %Basophils 0.4 % (0.0-1.0); %Eosinophils 3.4 % (0.0-10.0); %Lymphocytes 24.6 % (21.0-51.0); %Monocytes 13.5 % (0.0-10.0); %Neutrophils 57.6 % (42.0-75.0); Hematocrit 34.2 % (36.0-47.0); Hemoglobin 10.4 g/dL (12.0-16.0); Mean Corpuscular HGB CONC 30.4 g/dL (32.0-36.0); Mean Corpuscular Hemoglobin 25.1 pg (27.0-31.0); Mean Corpuscular Volume 82.4 fl (78.0-98.0); Mean Platelet Volume 10.1 fL (7.4-10.4); Platelet Count 315 10x3/uL (130-400); RBC Distribution Width 21.6 % (11.5-14.5); Red Blood Cell (RBC) Count 4.15 mill/uL (4.20-5.40); White Blood Cell (WBC) Count 12.4 10x3/uL (4.8-10.8)
[2022-10-12] MEDS: LevoFLOXacin 500 MG TAB PO SCH (06:41)
[2022-10-12 06:59] LABS: Anion Gap 16 mmol/L (10-20); BUN (Urea Nitrogen) 36 mg/dL (9.8-20.1); Calc. Creatinine Clearance 23 mL/min (70-130); Calcium 8.8 mg/dL (7.8-10.44); Carbon Dioxide 20 mmol/L (23-31); Chloride 102 mmol/L (98-107); Estimated GFR 32; Glucose 104 mg/dL (83-110); Potassium 4.5 mmol/L (3.5-5.1); Sodium 133 mmol/L (136-145)
[2022-10-12] MEDS: Sodium Chloride 0.9% 250 ML IV SCH ×3 (09:55→18:16)
[2022-10-12] MEDS: Apixaban 2.5 MG TAB PO SCH ×2 (09:55→20:17)
[2022-10-12] MEDS: Dicyclomine 20 MG TAB PO SCH ×4 (09:55→20:17)
[2022-10-12] MEDS: Gabapentin 300 MG CAP PO SCH ×3 (09:55→20:17)
[2022-10-12] MEDS: Carbidopa/Levodopa 10-100 mg Tablet PO SCH ×3 (09:55→20:17)
[2022-10-12] MEDS: levETIRAcetam 500 MG TAB PO SCH ×2 (09:56→20:17)
[2022-10-12] MEDS: Metoprolol Tartrate 50 MG TAB PO SCH ×2 (09:56→20:17)
[2022-10-12] MEDS: Lidocaine 4% Patch TD SCH (09:56)
[2022-10-12] MEDS: Metoclopramide HCl 10 MG/2 ML VIAL IVP PRN (12:14)
[2022-10-12] MEDS: Mag-Al 1200 mg/1200 mg/30 ML UDCUP PO PRN ×2 (16:45→20:18)
[2022-10-12] MEDS: Atorvastatin Calcium 20 MG TAB PO SCH (20:18)
[2022-10-12] MEDS: Transdermal Patch Removal TOP SCH (20:18)
[2022-10-13] MEDS: Morphine 2 MG/ML VIAL SLOW IVP PRN ×9 (00:18→23:47)
[2022-10-13] MEDS: Mag-Al 1200 mg/1200 mg/30 ML UDCUP PO PRN ×2 (00:18→21:26)
[2022-10-13] MEDS: Sodium Chloride 0.9% 250 ML IV SCH ×3 (00:36→08:00)
[2022-10-13] MEDS: LevoFLOXacin 500 MG TAB PO SCH (05:55)
[2022-10-13 06:40] LABS: #Basophils 0.1 thou/uL (0.0-0.2); #Eosinphils 0.7 thou/uL (0.0-0.7); #Monocytes 1.6 thou/uL (0.11-0.59); #Neutrophils 4.9 thou/uL (1.40-6.50); %Basophils 0.5 % (0.0-1.0); %Eosinophils 6.7 % (0.0-10.0); %Lymphocytes 25.6 % (21.0-51.0); %Monocytes 16.6 % (0.0-10.0); Hematocrit 33.9 % (36.0-47.0); Hemoglobin 10.2 g/dL (12.0-16.0); Mean Corpuscular HGB CONC 30.1 g/dL (32.0-36.0); Mean Corpuscular Hemoglobin 25.1 pg (27.0-31.0); Mean Corpuscular Volume 83.3 fl (78.0-98.0); Mean Platelet Volume 10.6 fL (7.4-10.4); Platelet Count 276 10x3/uL (130-400); RBC Distribution Width 22.8 % (11.5-14.5); Red Blood Cell (RBC) Count 4.07 mill/uL (4.20-5.40); White Blood Cell (WBC) Count 9.9 10x3/uL (4.8-10.8)
[2022-10-13 07:09] LABS: Anion Gap 17 mmol/L (10-20); BUN (Urea Nitrogen) 53 mg/dL (9.8-20.1); Calc. Creatinine Clearance 20 mL/min (70-130); Calcium 8.5 mg/dL (7.8-10.44); Carbon Dioxide 19 mmol/L (23-31); Chloride 102 mmol/L (98-107); Estimated GFR 27; Glucose 75 mg/dL (83-110); Potassium 5.6 mmol/L (3.5-5.1); Sodium 132 mmol/L (136-145)
[2022-10-13] MEDS: Dicyclomine 20 MG TAB PO SCH ×4 (07:59→20:11)
[2022-10-13] MEDS: levETIRAcetam 500 MG TAB PO SCH ×2 (07:59→20:12)
[2022-10-13] MEDS: Carbidopa/Levodopa 10-100 mg Tablet PO SCH ×3 (07:59→20:14)
[2022-10-13] MEDS: Metoprolol Tartrate 50 MG TAB PO SCH ×2 (07:59→20:11)
[2022-10-13] MEDS: Apixaban 2.5 MG TAB PO SCH (07:59)
[2022-10-13] MEDS: Gabapentin 300 MG CAP PO SCH ×3 (07:59→20:11)
[2022-10-13] MEDS: Lidocaine 4% Patch TD SCH (09:33)
[2022-10-13] MEDS: Albumin 25% 25 GM/100 ML BOT IVPB SCH ×3 (10:38→23:47)
[2022-10-13] MEDS: Atorvastatin Calcium 20 MG TAB PO SCH (20:11)
[2022-10-13] MEDS: Acetaminophen 325 MG TAB PO PRN (20:11)
[2022-10-13] MEDS: Senokot S 8.6-50 MG TAB PO SCH (20:11)
[2022-10-13] MEDS: Transdermal Patch Removal TOP SCH (20:14)
[2022-10-14] MEDS: Morphine 2 MG/ML VIAL SLOW IVP PRN ×3 (04:58→10:26)
[2022-10-14] MEDS: LevoFLOXacin 500 MG TAB PO SCH (04:58)
[2022-10-14] MEDS: Albumin 25% 25 GM/100 ML BOT IVPB SCH (04:58)
[2022-10-14] MEDS: Carbidopa/Levodopa 10-100 mg Tablet PO SCH ×3 (07:44→20:34)
[2022-10-14] MEDS: Metoprolol Tartrate 50 MG TAB PO SCH ×2 (07:44→20:34)
[2022-10-14] MEDS: Aspirin 325 mg Enteric Coated Tablet PO SCH (07:44)
[2022-10-14] MEDS: levETIRAcetam 500 MG TAB PO SCH ×2 (07:44→20:34)
[2022-10-14] MEDS: Gabapentin 300 MG CAP PO SCH ×3 (07:45→20:34)
[2022-10-14] MEDS: Dicyclomine 20 MG TAB PO SCH ×4 (07:45→20:34)
[2022-10-14] MEDS: Senokot S 8.6-50 MG TAB PO SCH ×2 (07:45→20:34)
[2022-10-14 08:12] VITALS: BMI 23.0
[2022-10-14 09:21] LABS: #Eosinphils 0.4 thou/uL (0.0-0.7); #Monocytes 1.2 thou/uL (0.11-0.59); #Neutrophils 6.5 thou/uL (1.40-6.50); %Basophils 0.3 % (0.0-1.0); %Eosinophils 4.2 % (0.0-10.0); %Lymphocytes 16.9 % (21.0-51.0); %Neutrophils 66.2 % (42.0-75.0); Hematocrit 30.5 % (36.0-47.0); Hemoglobin 9.1 g/dL (12.0-16.0); Mean Corpuscular HGB CONC 29.8 g/dL (32.0-36.0); Mean Corpuscular Hemoglobin 25.6 pg (27.0-31.0); Mean Corpuscular Volume 85.7 fl (78.0-98.0); Mean Platelet Volume 10.1 fL (7.4-10.4); Platelet Count 200 10x3/uL (130-400); RBC Distribution Width 23.7 % (11.5-14.5); Red Blood Cell (RBC) Count 3.56 mill/uL (4.20-5.40); White Blood Cell (WBC) Count 9.8 10x3/uL (4.8-10.8)
[2022-10-14 09:56] LABS: Anion Gap 19 mmol/L (10-20); BUN (Urea Nitrogen) 64 mg/dL (9.8-20.1); Calc. Creatinine Clearance 19 mL/min (70-130); Calcium 9.3 mg/dL (7.8-10.44); Carbon Dioxide 20 mmol/L (23-31); Chloride 102 mmol/L (98-107); Estimated GFR 26; Glucose 81 mg/dL (83-110); Potassium 4.3 mmol/L (3.5-5.1); Sodium 137 mmol/L (136-145)
[2022-10-14] MEDS: Lidocaine 4% Patch TD SCH (10:26)
[2022-10-14] MEDS: HYDROcodone/Acetaminophen 10/325 mg Tablet PO PRN ×2 (13:34→20:34)
[2022-10-14] MEDS: Sodium Chloride 0.9% 1,000 ML IV SCH (13:34)
[2022-10-14] MEDS: traMADol HCl 50 MG TAB PO PRN ×2 (16:57→23:17)
[2022-10-14 17:03] LABS: Bacteria/HPF None Seen HPF (None Seen); Bilirubin Negative (Negative); Blood, Urine Negative (Negative); CAUTI Indications for Culture Dysuria,urgency,freq; Clarity Clear (Clear); Glucose, Urine (Dipstick) Normal (Negative); Ketone, Urine Negative (Negative); Leukocyte 75 Leu/uL (Negative); Nitrite Negative (Negative); Protein, Urine (Dipstick) Negative (Neg-Trace); RBC/HPF 0-3 HPF (0-3); Specific Gravity, Urine 1.018 (1.002-1.036); Urobilinogen Normal mg/dL (Less than 2); WBC/HPF 0-3 HPF (0-3)
[2022-10-14 17:08] LABS: Urine Culture Reflex No No
[2022-10-14 17:35] LABS: Creatinine, Urine 64.48 mg/dL (47-110)
[2022-10-14] MEDS: Atorvastatin Calcium 20 MG TAB PO SCH (20:34)
[2022-10-14] MEDS: Transdermal Patch Removal TOP SCH (20:37)
[2022-10-14] MEDS: Acetaminophen 325 MG TAB PO PRN (23:17)
[2022-10-15] MEDS: Sodium Chloride 0.9% 1,000 ML IV SCH (03:43)
[2022-10-15] MEDS: HYDROcodone/Acetaminophen 10/325 mg Tablet PO PRN ×3 (04:54→18:15)
[2022-10-15] MEDS: LevoFLOXacin 500 MG TAB PO SCH (04:56)
[2022-10-15 06:48] LABS: Anion Gap 14 mmol/L (10-20); BUN (Urea Nitrogen) 68 mg/dL (9.8-20.1); Calc. Creatinine Clearance 24 mL/min (70-130); Calcium 8.5 mg/dL (7.8-10.44); Carbon Dioxide 20 mmol/L (23-31); Chloride 106 mmol/L (98-107); Estimated GFR 34; Glucose 95 mg/dL (83-110); Potassium 4.7 mmol/L (3.5-5.1); Sodium 135 mmol/L (136-145)
[2022-10-15] MEDS: Aspirin 325 mg Enteric Coated Tablet PO SCH (09:22)
[2022-10-15] MEDS: Dicyclomine 20 MG TAB PO SCH ×4 (09:22→21:25)
[2022-10-15] MEDS: Carbidopa/Levodopa 10-100 mg Tablet PO SCH ×3 (09:22→21:25)
[2022-10-15] MEDS: levETIRAcetam 500 MG TAB PO SCH ×2 (09:23→21:25)
[2022-10-15] MEDS: Metoprolol Tartrate 50 MG TAB PO SCH ×2 (09:23→21:25)
[2022-10-15] MEDS: Lidocaine 4% Patch TD SCH (09:23)
[2022-10-15] MEDS: Gabapentin 300 MG CAP PO SCH ×3 (09:23→21:25)
[2022-10-15] MEDS: Senokot S 8.6-50 MG TAB PO SCH ×2 (09:23→21:25)
[2022-10-15] MEDS: traMADol HCl 50 MG TAB PO PRN ×3 (09:24→21:25)
[2022-10-15] MEDS: Metoclopramide HCl 10 MG/2 ML VIAL IVP PRN (15:14)
[2022-10-15] MEDS: Atorvastatin Calcium 20 MG TAB PO SCH (21:25)
[2022-10-15] MEDS: Transdermal Patch Removal TOP SCH (21:26)
[2022-10-16] MEDS ORDERED: Sodium Chloride 0.9% 500 ML IV SCH (01:00)
[2022-10-16] MEDS: HYDROcodone/Acetaminophen 10/325 mg Tablet PO PRN ×4 (01:09→22:21)
[2022-10-16] MEDS: traMADol HCl 50 MG TAB PO PRN ×2 (03:04→20:19)
[2022-10-16] MEDS: LevoFLOXacin 500 MG TAB PO SCH (06:01)
[2022-10-16 07:55] LABS: #Basophils 0.1 thou/uL (0.0-0.2); #Eosinphils 0.4 thou/uL (0.0-0.7); #Monocytes 1.1 thou/uL (0.11-0.59); #Neutrophils 4.3 thou/uL (1.40-6.50); %Basophils 0.7 % (0.0-1.0); %Eosinophils 5.9 % (0.0-10.0); %Monocytes 15.2 % (0.0-10.0); %Neutrophils 58.4 % (42.0-75.0); Hematocrit 28.8 % (36.0-47.0); Hemoglobin 8.1 g/dL (12.0-16.0); Mean Corpuscular HGB CONC 28.1 g/dL (32.0-36.0); Mean Corpuscular Hemoglobin 25.2 pg (27.0-31.0); Mean Corpuscular Volume 89.7 fl (78.0-98.0); Mean Platelet Volume 10.1 fL (7.4-10.4); Platelet Count 182 10x3/uL (130-400); RBC Distribution Width 24.2 % (11.5-14.5); Red Blood Cell (RBC) Count 3.21 mill/uL (4.20-5.40); White Blood Cell (WBC) Count 7.4 10x3/uL (4.8-10.8)
[2022-10-16 08:16] LABS: Anion Gap 13 mmol/L (10-20); BUN (Urea Nitrogen) 65 mg/dL (9.8-20.1); Calc. Creatinine Clearance 28 mL/min (70-130); Calcium 8.8 mg/dL (7.8-10.44); Carbon Dioxide 18 mmol/L (23-31); Chloride 105 mmol/L (98-107); Estimated GFR 40; Glucose 79 mg/dL (83-110); Potassium 5.3 mmol/L (3.5-5.1); Sodium 131 mmol/L (136-145)
[2022-10-16] MEDS: Gabapentin 300 MG CAP PO SCH ×2 (08:16→20:20)
[2022-10-16] MEDS: levETIRAcetam 500 MG TAB PO SCH ×2 (08:16→20:19)
[2022-10-16] MEDS: Carbidopa/Levodopa 10-100 mg Tablet PO SCH ×3 (08:16→20:18)
[2022-10-16] MEDS: Aspirin 325 mg Enteric Coated Tablet PO SCH (08:16)
[2022-10-16] MEDS: Metoprolol Tartrate 50 MG TAB PO SCH (08:17)
[2022-10-16] MEDS: Senokot S 8.6-50 MG TAB PO SCH ×2 (08:17→20:19)
[2022-10-16] MEDS: Dicyclomine 20 MG TAB PO SCH ×4 (08:17→20:19)
[2022-10-16] MEDS: Lidocaine 4% Patch TD SCH (08:18)
[2022-10-16 08:39] LABS: Anisocytosis SLIGHT = 6-15 cells HPF (0-5); Burr Cells SLIGHT = 2-5 cells HPF (0-1); CellaVision Operator ID LAB.NR; Hypochromia SLIGHT = 6-15 cells HPF (0-5); Platelet Adequacy Comment Platelets Decreased; Polychromasia SLIGHT = 2-3 cells HPF (0-2)
[2022-10-16] MEDS ORDERED: Polyethylene Glycol 3350 17 GM Packet PO SCH (12:15)
[2022-10-16] MEDS ORDERED: Loratadine 10 MG TAB PO PRN (13:51)
[2022-10-16] MEDS ORDERED: Sodium Bicarbonate 150 MEQ in Dextrose 5% in Water 1,000 ML IV SCH (17:00)
[2022-10-16] MEDS ORDERED: Dextrose 5% in Water 1,000 ML IV SCH (17:00)
[2022-10-16] MEDS: Sodium Bicarbonate 150 MEQ in Dextrose 5% in Water 1,000 ML IV SCH (18:56)
[2022-10-16] MEDS: Atorvastatin Calcium 20 MG TAB PO SCH (20:18)
[2022-10-16] MEDS: Metoprolol Tartrate 25 MG TAB PO SCH (20:19)
[2022-10-16] MEDS: Polyethylene Glycol 3350 17 GM Packet PO SCH (20:21)
[2022-10-16] MEDS: Transdermal Patch Removal TOP SCH (20:21)
[2022-10-16] MEDS ORDERED: Melatonin 3 MG TAB PO SCH (22:15)
[2022-10-17] MEDS: HYDROcodone/Acetaminophen 10/325 mg Tablet PO PRN ×3 (03:59→21:22)
[2022-10-17] MEDS: Sodium Bicarbonate 150 MEQ in Dextrose 5% in Water 1,000 ML IV SCH (05:27)
[2022-10-17 06:35] LABS: #Basophils 0.1 thou/uL (0.0-0.2); #Eosinphils 0.3 thou/uL (0.0-0.7); #Neutrophils 3.2 thou/uL (1.40-6.50); %Basophils 0.8 % (0.0-1.0); %Eosinophils 5.2 % (0.0-10.0); %Lymphocytes 27.4 % (21.0-51.0); %Neutrophils 50.3 % (42.0-75.0); Hematocrit 25.4 % (36.0-47.0); Hemoglobin 7.4 g/dL (12.0-16.0); Mean Corpuscular HGB CONC 29.1 g/dL (32.0-36.0); Mean Corpuscular Hemoglobin 25.4 pg (27.0-31.0); Mean Corpuscular Volume 87.3 fl (78.0-98.0); Platelet Count 190 10x3/uL (130-400); RBC Distribution Width 24.4 % (11.5-14.5); Red Blood Cell (RBC) Count 2.91 mill/uL (4.20-5.40); White Blood Cell (WBC) Count 6.3 10x3/uL (4.8-10.8)
[2022-10-17 06:54] LABS: Mean Platelet Volume 10.9 fL (7.4-10.4)
[2022-10-17 07:02] LABS: Anion Gap 13 mmol/L (10-20); BUN (Urea Nitrogen) 73 mg/dL (9.8-20.1); Calc. Creatinine Clearance 26 mL/min (70-130); Calcium 8.6 mg/dL (7.8-10.44); Carbon Dioxide 22 mmol/L (23-31); Chloride 101 mmol/L (98-107); Estimated GFR 37; Glucose 92 mg/dL (83-110); Potassium 5.4 mmol/L (3.5-5.1); Sodium 131 mmol/L (136-145)
[2022-10-17 07:03] LABS: Iron 48 ug/dL (50-170); Iron Binding Capacity, Total 235 mcg/dL (265-497)
[2022-10-17 07:45] LABS: Albumin 3.8 g/dL (3.4-4.8)
[2022-10-17] MEDS ORDERED: LOKELMA 10 GM PACKET PO SCH (08:30)
[2022-10-17] MEDS: Carbidopa/Levodopa 10-100 mg Tablet PO SCH ×3 (08:54→21:21)
[2022-10-17] MEDS: Aspirin 325 mg Enteric Coated Tablet PO SCH (08:54)
[2022-10-17] MEDS: Metoprolol Tartrate 25 MG TAB PO SCH ×2 (08:55→21:21)
[2022-10-17] MEDS: Polyethylene Glycol 3350 17 GM Packet PO SCH ×2 (08:55→22:31)
[2022-10-17] MEDS: traMADol HCl 50 MG TAB PO PRN ×2 (08:55→23:48)
[2022-10-17] MEDS: Lidocaine 4% Patch TD SCH (08:55)
[2022-10-17] MEDS: Gabapentin 300 MG CAP PO SCH ×2 (08:55→21:23)
[2022-10-17] MEDS: Dicyclomine 20 MG TAB PO SCH ×4 (08:55→21:22)
[2022-10-17] MEDS: levETIRAcetam 500 MG TAB PO SCH ×2 (08:55→21:22)
[2022-10-17] MEDS: Senokot S 8.6-50 MG TAB PO SCH ×2 (08:56→22:31)
[2022-10-17] MEDS ORDERED: Ipratropium/Albuterol 3 ML NEB NEB PRN (14:33)
[2022-10-17] MEDS ORDERED: GoLYTELY 4,000 ml Bottle PO SCH (15:00)
[2022-10-17 15:52] LABS: Bilirubin Negative (Negative); Blood, Urine Negative (Negative); CAUTI Indications for Culture Dysuria,urgency,freq; Clarity Clear (Clear); Glucose, Urine (Dipstick) Normal (Negative); Ketone, Urine Negative (Negative); Leukocyte 75 Leu/uL (Negative); Nitrite Negative (Negative); Protein, Urine (Dipstick) Negative (Neg-Trace); RBC/HPF 0-3 HPF (0-3); Specific Gravity, Urine 1.021 (1.002-1.036); Squamous Epithelial 0-3 HPF (0-3); Urobilinogen Normal mg/dL (Less than 2); WBC/HPF 0-3 HPF (0-3); pH, Urine 5.5 (5.0-9.0)
[2022-10-17 15:55] LABS: Anion Gap 15 mmol/L (10-20); BUN (Urea Nitrogen) 70 mg/dL (9.8-20.1); Calc. Creatinine Clearance 25 mL/min (70-130); Calcium 8.5 mg/dL (7.8-10.44); Carbon Dioxide 22 mmol/L (23-31); Chloride 99 mmol/L (98-107); Estimated GFR 36; Glucose 152 mg/dL (83-110); Potassium 4.9 mmol/L (3.5-5.1); Sodium 131 mmol/L (136-145)
[2022-10-17 16:00] LABS: Bacteria/HPF 1+ HPF (None Seen); Yeast-Budding 2+ HPF (None Seen)
[2022-10-17 16:02] LABS: Urine Culture Reflex No No
[2022-10-17] MEDS: Atorvastatin Calcium 20 MG TAB PO SCH (21:22)
[2022-10-17] MEDS: Transdermal Patch Removal TOP SCH (21:31)
[2022-10-17] MEDS ORDERED: Cyclobenzaprine 10 MG TAB PO SCH (22:00)
[2022-10-18 07:30] LABS: #Basophils 0.1 thou/uL (0.0-0.2); #Eosinphils 0.4 thou/uL (0.0-0.7); #Monocytes 0.8 thou/uL (0.11-0.59); #Neutrophils 2.4 thou/uL (1.40-6.50); %Basophils 1.2 % (0.0-1.0); %Eosinophils 7.3 % (0.0-10.0); %Lymphocytes 29.1 % (21.0-51.0); %Neutrophils 46.2 % (42.0-75.0); Hematocrit 28.1 % (36.0-47.0); Hemoglobin 7.7 g/dL (12.0-16.0); Mean Corpuscular HGB CONC 27.4 g/dL (32.0-36.0); Mean Corpuscular Hemoglobin 25.3 pg (27.0-31.0); Mean Corpuscular Volume 92.4 fl (78.0-98.0); Mean Platelet Volume 11.8 fL (7.4-10.4); Platelet Count 172 10x3/uL (130-400); RBC Distribution Width 25.2 % (11.5-14.5); Red Blood Cell (RBC) Count 3.04 mill/uL (4.20-5.40); White Blood Cell (WBC) Count 5.2 10x3/uL (4.8-10.8)
[2022-10-18 07:54] LABS: Anion Gap 17 mmol/L (10-20); BUN (Urea Nitrogen) 65 mg/dL (9.8-20.1); Calc. Creatinine Clearance 28 mL/min (70-130); Calcium 8.5 mg/dL (7.8-10.44); Carbon Dioxide 22 mmol/L (23-31); Chloride 100 mmol/L (98-107); Estimated GFR 40; Glucose 75 mg/dL (83-110); Potassium 5.4 mmol/L (3.5-5.1); Sodium 134 mmol/L (136-145)
[2022-10-18] MEDS ORDERED: Ondansetron PF 4 MG/2 ML Vial IVP PRN (07:59)
[2022-10-18] MEDS ORDERED: Ondansetron ODT 8 MG TAB SL PRN (07:59)
[2022-10-18 08:15] LABS: Anisocytosis SLIGHT = 6-15 cells HPF (0-5); Burr Cells SLIGHT = 2-5 cells HPF (0-1); CellaVision Operator ID LAB.GE; Hypochromia SLIGHT = 6-15 cells HPF (0-5); Large Platelets 3.5 % (0-5); Platelet Adequacy Comment Platelets Normal; Polychromasia MODERATE = 3-4 cells HPF (0-2); Smudge Cells 3.5 %
[2022-10-18] MEDS ORDERED: LOKELMA 10 GM PACKET PO SCH (08:24)
[2022-10-18] MEDS: Dicyclomine 20 MG TAB PO SCH ×4 (09:46→21:06)
[2022-10-18] MEDS: Gabapentin 300 MG CAP PO SCH ×2 (09:46→21:07)
[2022-10-18] MEDS: levETIRAcetam 500 MG TAB PO SCH ×2 (09:46→21:06)
[2022-10-18] MEDS: Metoprolol Tartrate 25 MG TAB PO SCH ×2 (09:46→21:07)
[2022-10-18] MEDS: Lidocaine 4% Patch TD SCH (09:47)
[2022-10-18] MEDS: Senokot S 8.6-50 MG TAB PO SCH ×2 (09:47→21:07)
[2022-10-18] MEDS: Polyethylene Glycol 3350 17 GM Packet PO SCH ×2 (09:47→21:08)
[2022-10-18] MEDS: Aspirin 325 mg Enteric Coated Tablet PO SCH (09:47)
[2022-10-18] MEDS: HYDROcodone/Acetaminophen 10/325 mg Tablet PO PRN ×3 (09:51→21:06)
[2022-10-18] MEDS: Carbidopa/Levodopa 10-100 mg Tablet PO SCH ×3 (09:51→21:06)
[2022-10-18] MEDS ORDERED: Ketamine 50 MG/ML (10ML VIAL) ONE (12:20)
[2022-10-18] MEDS ORDERED: Lidocaine 1% PF 5 ML VIAL ONE (12:35)
[2022-10-18] MEDS ORDERED: PROPOFOL 200 MG/20 ML VIAL ONE (12:35)
[2022-10-18] MEDS: Atorvastatin Calcium 20 MG TAB PO SCH (21:07)
[2022-10-18] MEDS: Transdermal Patch Removal TOP SCH (21:08)
[2022-10-19] MEDS: HYDROcodone/Acetaminophen 10/325 mg Tablet PO PRN ×4 (02:43→21:21)
[2022-10-19 06:53] LABS: #Eosinphils 0.5 thou/uL (0.0-0.7); #Monocytes 0.7 thou/uL (0.11-0.59); #Neutrophils 4.8 thou/uL (1.40-6.50); %Basophils 0.4 % (0.0-1.0); %Eosinophils 6.7 % (0.0-10.0); %Lymphocytes 19.5 % (21.0-51.0); %Monocytes 9.4 % (0.0-10.0); %Neutrophils 63.7 % (42.0-75.0); Hematocrit 26.1 % (36.0-47.0); Hemoglobin 7.6 g/dL (12.0-16.0); Mean Corpuscular HGB CONC 29.1 g/dL (32.0-36.0); Mean Corpuscular Hemoglobin 25.6 pg (27.0-31.0); Mean Platelet Volume 10.3 fL (7.4-10.4); Platelet Count 222 10x3/uL (130-400); RBC Distribution Width 24.6 % (11.5-14.5); Red Blood Cell (RBC) Count 2.97 mill/uL (4.20-5.40); White Blood Cell (WBC) Count 7.6 10x3/uL (4.8-10.8)
[2022-10-19 07:14] LABS: Mean Corpuscular Volume 87.9 fl (78.0-98.0)
[2022-10-19 07:16] LABS: Albumin 3.9 g/dL (3.4-4.8); Anion Gap 11 mmol/L (10-20); BUN (Urea Nitrogen) 50 mg/dL (9.8-20.1); BUN/Creatinine Ratio 34.48; Calc. Creatinine Clearance 25 mL/min (70-130); Calcium 8.8 mg/dL (7.8-10.44); Carbon Dioxide 25 mmol/L (23-31); Chloride 105 mmol/L (98-107); Estimated GFR 36; Glucose 117 mg/dL (83-110); Phosphorus 4.1 mg/dL (2.3-4.7); Potassium 4.9 mmol/L (3.5-5.1); Sodium 136 mmol/L (136-145)
[2022-10-19] MEDS: Carbidopa/Levodopa 10-100 mg Tablet PO SCH ×3 (08:52→21:18)
[2022-10-19] MEDS: Dicyclomine 20 MG TAB PO SCH ×4 (08:52→21:18)
[2022-10-19] MEDS: Aspirin 325 mg Enteric Coated Tablet PO SCH (08:52)
[2022-10-19] MEDS: levETIRAcetam 500 MG TAB PO SCH ×2 (08:52→21:20)
[2022-10-19] MEDS: Senokot S 8.6-50 MG TAB PO SCH ×4 (08:53→21:24)
[2022-10-19] MEDS: Polyethylene Glycol 3350 17 GM Packet PO SCH ×2 (08:53→21:24)
[2022-10-19] MEDS: Gabapentin 300 MG CAP PO SCH ×2 (08:54→21:18)
[2022-10-19] MEDS: Lidocaine 4% Patch TD SCH (08:55)
[2022-10-19] MEDS: Metoprolol Tartrate 25 MG TAB PO SCH ×2 (08:55→21:27)
[2022-10-19] MEDS: Iron, Sodium Ferric Gluconate 250 MG in Sodium Chloride 0.9% 250 ML 250 ML IVPB SCH (11:00)
[2022-10-19] MEDS: traMADol HCl 50 MG TAB PO PRN (13:15)
[2022-10-19] MEDS ORDERED: guaiFENesin ER 600 MG TAB PO SCH (13:30)
[2022-10-19 16:23] LABS: Creatinine, Urine 37.8 mg/dL (47-110)
[2022-10-19] MEDS: Atorvastatin Calcium 20 MG TAB PO SCH (21:18)
[2022-10-19] MEDS: guaiFENesin ER 600 MG TAB PO SCH (21:20)
[2022-10-19] MEDS: Benzonatate 100 MG CAP PO PRN (21:21)
[2022-10-19] MEDS: Mag-Al 1200 mg/1200 mg/30 ML UDCUP PO PRN (21:26)
[2022-10-19] MEDS: Transdermal Patch Removal TOP SCH (21:28)
[2022-10-20] MEDS: traMADol HCl 50 MG TAB PO PRN ×2 (01:09→13:20)
[2022-10-20 06:55] LABS: #Basophils 0.1 thou/uL (0.0-0.2); #Eosinphils 0.6 thou/uL (0.0-0.7); #Monocytes 1.1 thou/uL (0.11-0.59); #Neutrophils 4.3 thou/uL (1.40-6.50); %Basophils 0.6 % (0.0-1.0); %Eosinophils 7.1 % (0.0-10.0); %Lymphocytes 21.6 % (21.0-51.0); %Monocytes 14.6 % (0.0-10.0); %Neutrophils 55.8 % (42.0-75.0); Hematocrit 23.1 % (36.0-47.0); Hemoglobin 6.7 g/dL (12.0-16.0); Mean Corpuscular Hemoglobin 25.6 pg (27.0-31.0); Mean Corpuscular Volume 88.2 fl (78.0-98.0); Mean Platelet Volume 10.3 fL (7.4-10.4); Platelet Count 240 10x3/uL (130-400); RBC Distribution Width 24.6 % (11.5-14.5); Red Blood Cell (RBC) Count 2.62 mill/uL (4.20-5.40); White Blood Cell (WBC) Count 7.8 10x3/uL (4.8-10.8)
[2022-10-20 07:15] LABS: Albumin 3.6 g/dL (3.4-4.8); Anion Gap 12 mmol/L (10-20); BUN (Urea Nitrogen) 51 mg/dL (9.8-20.1); BUN/Creatinine Ratio 39.53; Calc. Creatinine Clearance 28 mL/min (70-130); Calcium 8.8 mg/dL (7.8-10.44); Carbon Dioxide 23 mmol/L (23-31); Chloride 104 mmol/L (98-107); Estimated GFR 41; Glucose 82 mg/dL (83-110); Phosphorus 3.9 mg/dL (2.3-4.7); Potassium 5.3 mmol/L (3.5-5.1); Sodium 134 mmol/L (136-145)
[2022-10-20] MEDS: Carbidopa/Levodopa 10-100 mg Tablet PO SCH ×3 (08:37→20:08)
[2022-10-20] MEDS: levETIRAcetam 500 MG TAB PO SCH ×2 (08:37→20:09)
[2022-10-20] MEDS: Gabapentin 300 MG CAP PO SCH ×2 (08:37→20:08)
[2022-10-20] MEDS: Senokot S 8.6-50 MG TAB PO SCH ×2 (08:38→21:36)
[2022-10-20] MEDS: guaiFENesin ER 600 MG TAB PO SCH ×2 (08:38→20:09)
[2022-10-20] MEDS: Polyethylene Glycol 3350 17 GM Packet PO SCH ×2 (08:38→20:12)
[2022-10-20] MEDS: Metoprolol Tartrate 25 MG TAB PO SCH ×2 (08:38→20:11)
[2022-10-20] MEDS: Aspirin 325 mg Enteric Coated Tablet PO SCH (08:38)
[2022-10-20] MEDS: Dicyclomine 20 MG TAB PO SCH ×4 (08:38→20:08)
[2022-10-20] MEDS: HYDROcodone/Acetaminophen 10/325 mg Tablet PO PRN ×3 (08:39→22:39)
[2022-10-20] MEDS: Iron, Sodium Ferric Gluconate 250 MG in Sodium Chloride 0.9% 250 ML 250 ML IVPB SCH (08:50)
[2022-10-20] MEDS: Lidocaine 4% Patch TD SCH (08:51)
[2022-10-20] MEDS: Atorvastatin Calcium 20 MG TAB PO SCH (20:08)
[2022-10-20] MEDS: Benzonatate 100 MG CAP PO PRN (20:09)
[2022-10-20] MEDS: Transdermal Patch Removal TOP SCH (21:36)
[2022-10-20] MEDS: Melatonin 3 MG TAB PO PRN (22:39)
[2022-10-21 06:23] LABS: #Basophils 0.1 thou/uL (0.0-0.2); #Eosinphils 0.6 thou/uL (0.0-0.7); #Monocytes 1.1 thou/uL (0.11-0.59); #Neutrophils 4.1 thou/uL (1.40-6.50); %Basophils 0.8 % (0.0-1.0); %Eosinophils 7.6 % (0.0-10.0); %Lymphocytes 22.4 % (21.0-51.0); %Monocytes 14.2 % (0.0-10.0); %Neutrophils 54.7 % (42.0-75.0); Hematocrit 25.1 % (36.0-47.0); Hemoglobin 7.5 g/dL (12.0-16.0); Mean Corpuscular HGB CONC 29.9 g/dL (32.0-36.0); Mean Corpuscular Hemoglobin 26.1 pg (27.0-31.0); Mean Corpuscular Volume 87.5 fl (78.0-98.0); Mean Platelet Volume 10.1 fL (7.4-10.4); Platelet Count 281 10x3/uL (130-400); RBC Distribution Width 23.3 % (11.5-14.5); Red Blood Cell (RBC) Count 2.87 mill/uL (4.20-5.40); White Blood Cell (WBC) Count 7.5 10x3/uL (4.8-10.8)
[2022-10-21 06:48] LABS: Anion Gap 11 mmol/L (10-20); BUN (Urea Nitrogen) 46 mg/dL (9.8-20.1); Calc. Creatinine Clearance 32 mL/min (70-130); Calcium 8.7 mg/dL (7.8-10.44); Carbon Dioxide 23 mmol/L (23-31); Chloride 106 mmol/L (98-107); Estimated GFR 48; Glucose 86 mg/dL (83-110); Potassium 5.4 mmol/L (3.5-5.1); Sodium 135 mmol/L (136-145)
[2022-10-21] MEDS: Lidocaine 4% Patch TD SCH (08:41)
[2022-10-21] MEDS: Senokot S 8.6-50 MG TAB PO SCH ×2 (08:42→21:17)
[2022-10-21] MEDS: Aspirin 325 mg Enteric Coated Tablet PO SCH (08:42)
[2022-10-21] MEDS: Gabapentin 300 MG CAP PO SCH ×2 (08:42→21:16)
[2022-10-21] MEDS: levETIRAcetam 500 MG TAB PO SCH ×2 (08:42→21:16)
[2022-10-21] MEDS: Dicyclomine 20 MG TAB PO SCH ×4 (08:42→21:17)
[2022-10-21] MEDS: guaiFENesin ER 600 MG TAB PO SCH ×2 (08:43→21:17)
[2022-10-21] MEDS: Carbidopa/Levodopa 10-100 mg Tablet PO SCH ×3 (08:43→21:17)
[2022-10-21] MEDS: HYDROcodone/Acetaminophen 10/325 mg Tablet PO PRN ×3 (08:43→22:01)
[2022-10-21] MEDS: Metoprolol Tartrate 25 MG TAB PO SCH ×2 (08:43→21:17)
[2022-10-21] MEDS: Polyethylene Glycol 3350 17 GM Packet PO SCH ×2 (08:44→21:18)
[2022-10-21] MEDS ORDERED: LOKELMA 10 GM PACKET PO SCH (08:45)
[2022-10-21] MEDS: Iron, Sodium Ferric Gluconate 250 MG in Sodium Chloride 0.9% 250 ML 250 ML IVPB SCH (10:38)
[2022-10-21] MEDS ORDERED: Ondansetron ODT 4 MG TAB SL PRN (13:30)
[2022-10-21] MEDS: traMADol HCl 50 MG TAB PO PRN (13:36)
[2022-10-21] MEDS: Sodium Bicarbonate Tab 325 MG TAB PO SCH ×2 (15:50→21:16)
[2022-10-21] MEDS: Atorvastatin Calcium 20 MG TAB PO SCH (21:17)
[2022-10-21] MEDS: Transdermal Patch Removal TOP SCH (21:19)
[2022-10-22] MEDS: traMADol HCl 50 MG TAB PO PRN ×2 (02:12→15:30)
[2022-10-22 06:51] LABS: #Eosinphils 0.5 thou/uL (0.0-0.7); #Neutrophils 4.3 thou/uL (1.40-6.50); %Basophils 0.4 % (0.0-1.0); %Eosinophils 6.1 % (0.0-10.0); %Lymphocytes 20.2 % (21.0-51.0); %Monocytes 13.5 % (0.0-10.0); %Neutrophils 59.3 % (42.0-75.0); Hematocrit 25.4 % (36.0-47.0); Hemoglobin 7.7 g/dL (12.0-16.0); Mean Corpuscular HGB CONC 30.3 g/dL (32.0-36.0); Mean Corpuscular Hemoglobin 26.6 pg (27.0-31.0); Mean Corpuscular Volume 87.9 fl (78.0-98.0); Mean Platelet Volume 10.2 fL (7.4-10.4); Platelet Count 377 10x3/uL (130-400); RBC Distribution Width 23.9 % (11.5-14.5); Red Blood Cell (RBC) Count 2.89 mill/uL (4.20-5.40); White Blood Cell (WBC) Count 7.3 10x3/uL (4.8-10.8)
[2022-10-22 07:19] LABS: Albumin 3.4 g/dL (3.4-4.8); Anion Gap 14 mmol/L (10-20); BUN (Urea Nitrogen) 41 mg/dL (9.8-20.1); BUN/Creatinine Ratio 42.27; Calc. Creatinine Clearance 38 mL/min (70-130); Calcium 8.9 mg/dL (7.8-10.44); Carbon Dioxide 23 mmol/L (23-31); Chloride 106 mmol/L (98-107); Estimated GFR 58; Glucose 87 mg/dL (83-110); Phosphorus 3.9 mg/dL (2.3-4.7); Potassium 5.5 mmol/L (3.5-5.1); Sodium 137 mmol/L (136-145)
[2022-10-22] MEDS: Sodium Bicarbonate Tab 325 MG TAB PO SCH ×3 (09:13→21:59)
[2022-10-22] MEDS: Aspirin 325 mg Enteric Coated Tablet PO SCH (09:13)
[2022-10-22] MEDS: Metoprolol Tartrate 25 MG TAB PO SCH ×2 (09:13→21:53)
[2022-10-22] MEDS: guaiFENesin ER 600 MG TAB PO SCH ×2 (09:13→21:53)
[2022-10-22] MEDS: Carbidopa/Levodopa 10-100 mg Tablet PO SCH ×3 (09:13→21:52)
[2022-10-22] MEDS: levETIRAcetam 500 MG TAB PO SCH ×2 (09:14→21:53)
[2022-10-22] MEDS: Dicyclomine 20 MG TAB PO SCH ×4 (09:14→21:53)
[2022-10-22] MEDS: Lidocaine 4% Patch TD SCH (09:14)
[2022-10-22] MEDS: Senokot S 8.6-50 MG TAB PO SCH ×2 (09:14→21:54)
[2022-10-22] MEDS: Gabapentin 300 MG CAP PO SCH ×2 (09:14→21:53)
[2022-10-22] MEDS: Polyethylene Glycol 3350 17 GM Packet PO SCH ×2 (09:14→21:54)
[2022-10-22] MEDS: Iron, Sodium Ferric Gluconate 250 MG in Sodium Chloride 0.9% 250 ML 250 ML IVPB SCH (10:52)
[2022-10-22] MEDS: HYDROcodone/Acetaminophen 10/325 mg Tablet PO PRN (10:54)
[2022-10-22 16:48] LABS: Anion Gap 15 mmol/L (10-20); BUN (Urea Nitrogen) 37 mg/dL (9.8-20.1); Calc. Creatinine Clearance 36 mL/min (70-130); Calcium 8.9 mg/dL (7.8-10.44); Carbon Dioxide 20 mmol/L (23-31); Chloride 109 mmol/L (98-107); Estimated GFR 54; Glucose 103 mg/dL (83-110); Potassium 5.1 mmol/L (3.5-5.1); Sodium 139 mmol/L (136-145)
[2022-10-22] MEDS: HYDROcodone/Acetaminophen 7.5/325 mg Tablet PO PRN (21:52)
[2022-10-22] MEDS: Atorvastatin Calcium 20 MG TAB PO SCH (21:53)
[2022-10-22] MEDS: Transdermal Patch Removal TOP SCH (21:54)
[2022-10-23] MEDS: traMADol HCl 50 MG TAB PO PRN ×2 (02:24→19:25)
[2022-10-23] MEDS: Aspirin 325 mg Enteric Coated Tablet PO SCH (08:27)
[2022-10-23] MEDS: Carbidopa/Levodopa 10-100 mg Tablet PO SCH ×3 (08:27→21:21)
[2022-10-23] MEDS: Sodium Bicarbonate Tab 325 MG TAB PO SCH ×3 (08:27→21:19)
[2022-10-23] MEDS: Gabapentin 300 MG CAP PO SCH ×2 (08:27→21:21)
[2022-10-23] MEDS: guaiFENesin ER 600 MG TAB PO SCH ×2 (08:27→21:19)
[2022-10-23] MEDS: levETIRAcetam 500 MG TAB PO SCH ×2 (08:27→21:21)
[2022-10-23] MEDS: Lidocaine 4% Patch TD SCH (08:28)
[2022-10-23] MEDS: Metoprolol Tartrate 25 MG TAB PO SCH ×2 (08:28→21:19)
[2022-10-23] MEDS: HYDROcodone/Acetaminophen 7.5/325 mg Tablet PO PRN ×2 (08:28→14:56)
[2022-10-23] MEDS: Dicyclomine 20 MG TAB PO SCH ×4 (08:28→21:19)
[2022-10-23] MEDS: Senokot S 8.6-50 MG TAB PO SCH ×2 (08:28→21:21)
[2022-10-23] MEDS: Polyethylene Glycol 3350 17 GM Packet PO SCH ×2 (08:28→21:21)
[2022-10-23 09:50] LABS: #Eosinphils 0.5 thou/uL (0.0-0.7); #Monocytes 0.8 thou/uL (0.11-0.59); #Neutrophils 4.9 thou/uL (1.40-6.50); %Basophils 0.4 % (0.0-1.0); %Eosinophils 6.8 % (0.0-10.0); %Lymphocytes 16.3 % (21.0-51.0); %Neutrophils 65.1 % (42.0-75.0); Hematocrit 26.9 % (36.0-47.0); Hemoglobin 7.8 g/dL (12.0-16.0); Mean Corpuscular Hemoglobin 26.4 pg (27.0-31.0); Mean Corpuscular Volume 91.2 fl (78.0-98.0); Mean Platelet Volume 9.6 fL (7.4-10.4); Platelet Count 422 10x3/uL (130-400); RBC Distribution Width 24.4 % (11.5-14.5); Red Blood Cell (RBC) Count 2.95 mill/uL (4.20-5.40); White Blood Cell (WBC) Count 7.5 10x3/uL (4.8-10.8)
[2022-10-23 10:52] LABS: Albumin 3.5 g/dL (3.4-4.8); Anion Gap 10 mmol/L (10-20); BUN (Urea Nitrogen) 30 mg/dL (9.8-20.1); BUN/Creatinine Ratio 32.97; Calc. Creatinine Clearance 40 mL/min (70-130); Calcium 8.9 mg/dL (7.8-10.44); Carbon Dioxide 24 mmol/L (23-31); Chloride 107 mmol/L (98-107); Estimated GFR 63; Glucose 98 mg/dL (83-110); Phosphorus 3.6 mg/dL (2.3-4.7); Potassium 4.3 mmol/L (3.5-5.1); Sodium 137 mmol/L (136-145)
[2022-10-23] MEDS ORDERED: Furosemide 20 MG/2 ML VIAL SLOW IVP SCH (12:15)
[2022-10-23] MEDS: Melatonin 3 MG TAB PO PRN (21:19)
[2022-10-23] MEDS: Atorvastatin Calcium 20 MG TAB PO SCH (21:20)
[2022-10-23] MEDS: Transdermal Patch Removal TOP SCH (21:22)
[2022-10-23] MEDS: Mag-Al 1200 mg/1200 mg/30 ML UDCUP PO PRN (22:15)
[2022-10-24] MEDS: HYDROcodone/Acetaminophen 7.5/325 mg Tablet PO PRN ×2 (05:08→12:44)
[2022-10-24 06:25] LABS: #Eosinphils 0.6 thou/uL (0.0-0.7); #Monocytes 0.9 thou/uL (0.11-0.59); #Neutrophils 3.8 thou/uL (1.40-6.50); %Basophils 0.6 % (0.0-1.0); %Eosinophils 8.3 % (0.0-10.0); %Lymphocytes 22.4 % (21.0-51.0); %Monocytes 13.5 % (0.0-10.0); %Neutrophils 54.9 % (42.0-75.0); Hematocrit 28.7 % (36.0-47.0); Hemoglobin 8.7 g/dL (12.0-16.0); Mean Corpuscular HGB CONC 30.3 g/dL (32.0-36.0); Mean Corpuscular Volume 89.1 fl (78.0-98.0); Mean Platelet Volume 9.8 fL (7.4-10.4); Platelet Count 415 10x3/uL (130-400); RBC Distribution Width 23.9 % (11.5-14.5); Red Blood Cell (RBC) Count 3.22 mill/uL (4.20-5.40); White Blood Cell (WBC) Count 6.8 10x3/uL (4.8-10.8)
[2022-10-24 06:54] LABS: Anion Gap 13 mmol/L (10-20); BUN (Urea Nitrogen) 29 mg/dL (9.8-20.1); Calc. Creatinine Clearance 35 mL/min (70-130); Calcium 8.7 mg/dL (7.8-10.44); Carbon Dioxide 21 mmol/L (23-31); Chloride 106 mmol/L (98-107); Estimated GFR 54; Glucose 84 mg/dL (83-110); Potassium 4.1 mmol/L (3.5-5.1); Sodium 136 mmol/L (136-145)
[2022-10-24] MEDS: traMADol HCl 50 MG TAB PO PRN (09:07)
[2022-10-24] MEDS: Senokot S 8.6-50 MG TAB PO SCH (09:08)
[2022-10-24] MEDS: Sodium Bicarbonate Tab 325 MG TAB PO SCH ×2 (09:08→16:12)
[2022-10-24] MEDS: Dicyclomine 20 MG TAB PO SCH ×3 (09:09→16:12)
[2022-10-24] MEDS: Metoprolol Tartrate 25 MG TAB PO SCH (09:09)
[2022-10-24] MEDS: Polyethylene Glycol 3350 17 GM Packet PO SCH (09:09)
[2022-10-24] MEDS: guaiFENesin ER 600 MG TAB PO SCH (09:09)
[2022-10-24] MEDS: Aspirin 325 mg Enteric Coated Tablet PO SCH (09:09)
[2022-10-24] MEDS: levETIRAcetam 500 MG TAB PO SCH (09:09)
[2022-10-24] MEDS: Gabapentin 300 MG CAP PO SCH (09:10)
[2022-10-24] MEDS: Lidocaine 4% Patch TD SCH (09:18)
[2022-10-24] MEDS: Carbidopa/Levodopa 10-100 mg Tablet PO SCH ×2 (09:18→16:13)
[2022-10-24 16:17] VITALS: BP 149/85; TEMP 97.6
== END 2022-10-24 16:21 | disposition home or self-care (01) | DRG 193 ==
LOC: ERS 11:41 → 2NO 16:01 → T4-A 10-11 15:13
PROVIDERS: ADMIT Internal Medicine; ATTEND Internal Medicine
PROC: 30233N1 Transfusion of Nonautologous Red Blood Cells into Peripheral Vein, Percutaneous Approach (ICD-10-PCS; 2022-10-08)
PROC: 30233J1 Transfusion of Nonautologous Serum Albumin into Peripheral Vein, Percutaneous Approach (ICD-10-PCS; 2022-10-09)
PROC: 0DJD8ZZ Inspection of Lower Intestinal Tract, Via Natural or Artificial Opening Endoscopic (ICD-10-PCS; principal; 2022-10-18)
DX: J15.4 Pneumonia due to other streptococci (principal); I50.33 Acute on chronic diastolic (congestive) heart failure; J96.01 Acute respiratory failure with hypoxia; N17.9 Acute kidney failure, unspecified; E22.2 Syndrome of inappropriate secretion of antidiuretic hormone; M19.90 Unspecified osteoarthritis, unspecified site; F41.9 Anxiety disorder, unspecified; F32.A Depression, unspecified; E78.5 Hyperlipidemia, unspecified; I48.0 Paroxysmal atrial fibrillation; G40.909 Epilepsy, unspecified, not intractable, without status epilepticus; G89.4 Chronic pain syndrome; E87.5 Hyperkalemia; D50.9 Iron deficiency anemia, unspecified; I11.0 Hypertensive heart disease with heart failure; K57.30 Diverticulosis of large intestine without perforation or abscess without bleeding; N14.11 Contrast-induced nephropathy; K59.00 Constipation, unspecified; K21.9 Gastro-esophageal reflux disease without esophagitis; Z98.890 Other specified postprocedural states; Z90.49 Acquired absence of other specified parts of digestive tract; Z98.51 Tubal ligation status; Z88.0 Allergy status to penicillin; Z91.09 Other allergy status, other than to drugs and biological substances
CPT/HCPCS: 36415; 36430; 71045; 72148; 74177; 80048; 80053; 80069; 81001; 82040; 82550; 82570; 82728; 83540; 83550; 83605; 83690; 83735; 83880; 84300; 84484; 85025; 86850; 86900; 86901; 87040; 87449; 87899; 93005; 93306; 94640; 96365; 96366; 96375; 96376; C9113; J1650; J1940; J1956; J2270; J2272; J2405; J2704; J2765; J2916; J3475; J3490; J7030; J7050; J7070; J7120; J7620; P9016; P9047; Q0162; Q9967

== ENCOUNTER 2022-10-30 15:46 | Inpatient (IN) | payer MEDICARE, OTHER ==
[~2022-10-30 15:46] MED LIST changes: +Iopamidol 370 76% 100 ML VIAL ONE; -Iopamidol-370 76% 500 ML MDV (1 ML CHARGE) ONE
[2022-10-30] MEDS ORDERED: Ondansetron PF 4 MG/2 ML Vial ONE (16:11)
[2022-10-30] MEDS ORDERED: Acetaminophen 500 MG TAB ONE (16:11)
[2022-10-30 17:03] LABS: SARS-CoV-2 NAA Rapid Test Not Detected (NotDetected)
[2022-10-30 17:06] LABS: #Eosinphils 0.1 thou/uL (0.0-0.7); #Monocytes 0.4 thou/uL (0.11-0.59); #Neutrophils 4.7 thou/uL (1.40-6.50); %Basophils 0.7 % (0.0-1.0); %Eosinophils 2.3 % (0.0-10.0); %Monocytes 6.7 % (0.0-10.0); Hematocrit 34.5 % (36.0-47.0); Hemoglobin 10.3 g/dL (12.0-16.0); Mean Corpuscular HGB CONC 29.9 g/dL (32.0-36.0); Mean Corpuscular Hemoglobin 27.5 pg (27.0-31.0); Mean Platelet Volume 9.8 fL (7.4-10.4); Platelet Count 425 10x3/uL (130-400); RBC Distribution Width 23.7 % (11.5-14.5); Red Blood Cell (RBC) Count 3.75 mill/uL (4.20-5.40); White Blood Cell (WBC) Count 6.1 10x3/uL (4.8-10.8)
[2022-10-30] MEDS ORDERED: LevoFLOXacin 750 mg/D5W 150 ml Premix Bag ONE (17:19)
[2022-10-30 17:30] LABS: ALT (SGPT) 18 U/L (8-55); AST (SGOT) 18 U/L (5-34); Albumin 3.8 g/dL (3.4-4.8); Alkaline Phosphatase 95 U/L (40-110); Anion Gap 14 mmol/L (10-20); BUN (Urea Nitrogen) 10 mg/dL (9.8-20.1); Bilirubin, Total 0.4 mg/dL (0.2-1.2); Calc. Creatinine Clearance 0 mL/min (70-130); Calcium 8.4 mg/dL (7.8-10.44); Carbon Dioxide 18 mmol/L (23-31); Chloride 109 mmol/L (98-107); Estimated GFR 77; Glucose 113 mg/dL (83-110); Potassium 3.8 mmol/L (3.5-5.1); Protein, Total 6.8 g/dL (5.8-8.1); Sodium 137 mmol/L (136-145)
[2022-10-30] MEDS ORDERED: Aztreonam 1 GM in Sodium Chloride 0.9% 100 ML IVPB SCH (17:30)
[2022-10-30] MEDS ORDERED: Vancomycin HCl 750 MG in Sodium Chloride 0.9% 250 ML 250 ML IVPB SCH (17:30)
[2022-10-30] MEDS ORDERED: LevoFLOXacin 750 mg/D5W 750 MG in Premix Bag 1 BAG IVPB SCH (17:30)
[2022-10-30 17:32] LABS: Troponin I Less than 0.010 ng/mL (< 0.028)
[2022-10-30] MEDS ORDERED: Metoclopramide HCl 10 MG/2 ML VIAL ONE (20:03)
[2022-10-30 21:47] LABS: Troponin I Less than 0.010 ng/mL (< 0.028)
[2022-10-30] MEDS ORDERED: guaiFENesin ER 600 MG TAB PO PRN (21:57)
[2022-10-30] MEDS ORDERED: Benzonatate 100 MG CAP PO PRN (21:57)
[2022-10-30] MEDS ORDERED: Calcium Carbonate 500 MG ChewTAB PO PRN (22:02)
[2022-10-30] MEDS ORDERED: Loratadine 10 MG TAB PO PRN (22:09)
[2022-10-30] MEDS: Ondansetron ODT 4 MG TAB PO PRN (23:08)
[2022-10-30 23:30] VITALS: BMI 23.9
[2022-10-30] MEDS ORDERED: Ondansetron PF 4 MG/2 ML Vial IVP PRN (23:59)
[2022-10-31 00:23] LABS: Troponin I Less than 0.010 ng/mL (< 0.028)
[2022-10-31] MEDS: Ondansetron PF 4 MG/2 ML Vial IVP SCH (00:35)
[2022-10-31] MEDS ORDERED: Ketorolac Tromethamine 30 MG/ML VIAL IVP SCH (00:45)
[2022-10-31] MEDS ORDERED: Acetaminophen 500 MG TAB PO SCH (01:30)
[2022-10-31] MEDS ORDERED: traMADol HCl 50 MG TAB PO SCH (02:45)
[2022-10-31] MEDS ORDERED: Ondansetron PF 4 MG/2 ML Vial IVP SCH (04:15)
[2022-10-31] MEDS ORDERED: Metoclopramide HCl 10 MG/2 ML VIAL IVP SCH (04:30)
[2022-10-31 08:03] LABS: #Eosinphils 0.1 thou/uL (0.0-0.7); #Monocytes 0.5 thou/uL (0.11-0.59); #Neutrophils 5.8 thou/uL (1.40-6.50); %Basophils 0.5 % (0.0-1.0); %Eosinophils 0.7 % (0.0-10.0); %Lymphocytes 16.1 % (21.0-51.0); %Neutrophils 76.4 % (42.0-75.0); Hematocrit 35.8 % (36.0-47.0); Hemoglobin 10.8 g/dL (12.0-16.0); Mean Corpuscular HGB CONC 30.2 g/dL (32.0-36.0); Mean Corpuscular Hemoglobin 27.1 pg (27.0-31.0); Mean Corpuscular Volume 89.7 fl (78.0-98.0); Mean Platelet Volume 9.7 fL (7.4-10.4); Platelet Count 445 10x3/uL (130-400); RBC Distribution Width 23.8 % (11.5-14.5); Red Blood Cell (RBC) Count 3.99 mill/uL (4.20-5.40); White Blood Cell (WBC) Count 7.6 10x3/uL (4.8-10.8)
[2022-10-31 08:18] LABS: Anion Gap 21 mmol/L (10-20); BUN (Urea Nitrogen) 9 mg/dL (9.8-20.1); Calc. Creatinine Clearance 48 mL/min (70-130); Calcium 8.8 mg/dL (7.8-10.44); Carbon Dioxide 15 mmol/L (23-31); Chloride 106 mmol/L (98-107); Estimated GFR 74; Glucose 105 mg/dL (83-110); Potassium 3.5 mmol/L (3.5-5.1); Sodium 138 mmol/L (136-145)
[2022-10-31] MEDS: Ondansetron ODT 4 MG TAB PO PRN (10:27)
[2022-10-31] MEDS: Amlodipine 5 MG TAB PO SCH (10:29)
[2022-10-31] MEDS: Aspirin 81 mg Enteric Coated Tablet PO SCH (10:29)
[2022-10-31] MEDS: Hydrochlorothiazide 25 MG TAB PO SCH (10:30)
[2022-10-31] MEDS: Lisinopril 20 MG TAB PO SCH ×2 (10:30→21:00)
[2022-10-31] MEDS: levETIRAcetam 500 MG TAB PO SCH ×2 (10:30→20:59)
[2022-10-31] MEDS: guaiFENesin ER 600 MG TAB PO SCH ×2 (10:30→20:59)
[2022-10-31] MEDS: Gabapentin 300 MG CAP PO SCH ×3 (10:30→20:59)
[2022-10-31] MEDS: Metoprolol Tartrate 25 MG TAB PO SCH ×2 (10:31→21:01)
[2022-10-31] MEDS: Polyethylene Glycol 3350 17 GM Packet PO SCH ×2 (10:31→20:59)
[2022-10-31] MEDS: Senokot S 8.6-50 MG TAB PO SCH ×2 (10:31→21:01)
[2022-10-31] MEDS: Sertraline 100 MG TAB PO SCH (10:32)
[2022-10-31] MEDS: Sodium Bicarbonate Tab 325 MG TAB PO SCH ×3 (10:32→20:59)
[2022-10-31] MEDS: HYDROcodone/Acetaminophen 10/325 mg Tablet PO SCH ×2 (13:02→17:39)
[2022-10-31] MEDS: Carbidopa/Levodopa 10-100 mg Tablet PO SCH ×3 (13:02→20:59)
[2022-10-31] MEDS: Atorvastatin Calcium 20 MG TAB PO SCH (21:00)
[2022-10-31] MEDS: Acetaminophen 325 MG TAB PO PRN (21:01)
[2022-11-01] MEDS: HYDROcodone/Acetaminophen 10/325 mg Tablet PO SCH ×4 (00:17→17:52)
[2022-11-01] MEDS: Ondansetron PF 4 MG/2 ML Vial IVP SCH (01:41)
[2022-11-01 06:07] LABS: #Basophils 0.1 thou/uL (0.0-0.2); #Eosinphils 0.4 thou/uL (0.0-0.7); #Monocytes 0.8 thou/uL (0.11-0.59); #Neutrophils 3.4 thou/uL (1.40-6.50); %Basophils 1.1 % (0.0-1.0); %Eosinophils 6.1 % (0.0-10.0); %Monocytes 11.6 % (0.0-10.0); Hematocrit 33.6 % (36.0-47.0); Hemoglobin 10.3 g/dL (12.0-16.0); Mean Corpuscular HGB CONC 30.7 g/dL (32.0-36.0); Mean Corpuscular Hemoglobin 27.9 pg (27.0-31.0); Mean Corpuscular Volume 91.1 fl (78.0-98.0); Mean Platelet Volume 9.5 fL (7.4-10.4); Platelet Count 374 10x3/uL (130-400); RBC Distribution Width 24.1 % (11.5-14.5); Red Blood Cell (RBC) Count 3.69 mill/uL (4.20-5.40); White Blood Cell (WBC) Count 6.6 10x3/uL (4.8-10.8)
[2022-11-01 06:15] LABS: Delete Auto Diff?? NO
[2022-11-01 06:28] LABS: Anion Gap 11 mmol/L (10-20); BUN (Urea Nitrogen) 12 mg/dL (9.8-20.1); Calc. Creatinine Clearance 43 mL/min (70-130); Calcium 8.9 mg/dL (7.8-10.44); Carbon Dioxide 20 mmol/L (23-31); Chloride 106 mmol/L (98-107); Estimated GFR 66; Glucose 104 mg/dL (83-110); Magnesium 1.7 mg/dL (1.6-2.6); Potassium 3.8 mmol/L (3.5-5.1); Sodium 133 mmol/L (136-145)
[2022-11-01 06:58] LABS: Anisocytosis SLIGHT = 6-15 cells HPF (0-5); CellaVision Operator ID LAB.GE; Hypochromia SLIGHT = 6-15 cells HPF (0-5); Platelet Adequacy Comment Platelets Normal; Polychromasia SLIGHT = 2-3 cells HPF (0-2)
[2022-11-01] MEDS: Acetaminophen 325 MG TAB PO PRN (07:49)
[2022-11-01] MEDS: Sertraline 100 MG TAB PO SCH (09:26)
[2022-11-01] MEDS: Aspirin 81 mg Enteric Coated Tablet PO SCH (09:26)
[2022-11-01] MEDS: levETIRAcetam 500 MG TAB PO SCH ×2 (09:26→22:02)
[2022-11-01] MEDS: Amlodipine 5 MG TAB PO SCH (09:26)
[2022-11-01] MEDS: Metoprolol Tartrate 25 MG TAB PO SCH ×2 (09:27→22:03)
[2022-11-01] MEDS: Gabapentin 300 MG CAP PO SCH ×3 (09:27→22:04)
[2022-11-01] MEDS: guaiFENesin ER 600 MG TAB PO SCH ×2 (09:27→22:02)
[2022-11-01] MEDS: Hydrochlorothiazide 25 MG TAB PO SCH (09:27)
[2022-11-01] MEDS: Polyethylene Glycol 3350 17 GM Packet PO SCH ×2 (09:28→22:03)
[2022-11-01] MEDS: Lisinopril 20 MG TAB PO SCH ×2 (09:28→22:03)
[2022-11-01] MEDS: Carbidopa/Levodopa 10-100 mg Tablet PO SCH ×3 (09:28→22:02)
[2022-11-01] MEDS: Sodium Bicarbonate Tab 325 MG TAB PO SCH ×3 (09:28→22:02)
[2022-11-01] MEDS: Senokot S 8.6-50 MG TAB PO SCH ×2 (11:28→22:03)
[2022-11-01] MEDS ORDERED: LevoFLOXacin 750 mg/D5W 750 MG in Premix Bag 1 BAG IVPB SCH (18:00)
[2022-11-01] MEDS: Atorvastatin Calcium 20 MG TAB PO SCH (22:03)
[2022-11-02] MEDS: HYDROcodone/Acetaminophen 10/325 mg Tablet PO SCH ×4 (00:42→17:21)
[2022-11-02 05:38] LABS: #Basophils 0.1 thou/uL (0.0-0.2); #Eosinphils 0.5 thou/uL (0.0-0.7); #Monocytes 0.7 thou/uL (0.11-0.59); %Basophils 1.1 % (0.0-1.0); %Eosinophils 7.3 % (0.0-10.0); %Lymphocytes 32.9 % (21.0-51.0); %Monocytes 11.4 % (0.0-10.0); Hematocrit 35.9 % (36.0-47.0); Mean Corpuscular HGB CONC 30.6 g/dL (32.0-36.0); Mean Corpuscular Hemoglobin 27.8 pg (27.0-31.0); Mean Corpuscular Volume 90.9 fl (78.0-98.0); Mean Platelet Volume 9.8 fL (7.4-10.4); Platelet Count 355 10x3/uL (130-400); Red Blood Cell (RBC) Count 3.95 mill/uL (4.20-5.40); White Blood Cell (WBC) Count 6.4 10x3/uL (4.8-10.8)
[2022-11-02 06:07] LABS: Anion Gap 11 mmol/L (10-20); BUN (Urea Nitrogen) 13 mg/dL (9.8-20.1); Calc. Creatinine Clearance 41 mL/min (70-130); Calcium 8.5 mg/dL (7.8-10.44); Carbon Dioxide 23 mmol/L (23-31); Chloride 105 mmol/L (98-107); Estimated GFR 62; Glucose 87 mg/dL (83-110); Magnesium 1.6 mg/dL (1.6-2.6); Potassium 4.5 mmol/L (3.5-5.1); Sodium 134 mmol/L (136-145)
[2022-11-02] MEDS: Hydrochlorothiazide 25 MG TAB PO SCH (08:44)
[2022-11-02] MEDS: Sodium Bicarbonate Tab 325 MG TAB PO SCH ×2 (08:44→15:32)
[2022-11-02] MEDS: levETIRAcetam 500 MG TAB PO SCH (08:44)
[2022-11-02] MEDS: guaiFENesin ER 600 MG TAB PO SCH (08:44)
[2022-11-02] MEDS: Aspirin 81 mg Enteric Coated Tablet PO SCH (08:44)
[2022-11-02] MEDS: Amlodipine 5 MG TAB PO SCH (08:44)
[2022-11-02] MEDS: Sertraline 100 MG TAB PO SCH (08:44)
[2022-11-02] MEDS: Gabapentin 300 MG CAP PO SCH ×2 (08:45→15:33)
[2022-11-02] MEDS: Carbidopa/Levodopa 10-100 mg Tablet PO SCH ×2 (08:48→15:32)
[2022-11-02] MEDS: Senokot S 8.6-50 MG TAB PO SCH (08:49)
[2022-11-02] MEDS: Polyethylene Glycol 3350 17 GM Packet PO SCH (08:50)
[2022-11-02] MEDS: Metoprolol Tartrate 25 MG TAB PO SCH (12:07)
[2022-11-02] MEDS: Lisinopril 20 MG TAB PO SCH (12:07)
[2022-11-02 17:17] VITALS: BP 136/64; TEMP 97.7
== END 2022-11-02 18:46 | disposition home or self-care (01) | DRG 194 ==
LOC: ERS 15:46 → SURG B 20:36 → OBSVTOIN 11-01 11:31
PROVIDERS: ADMIT Student in an Organized Health Care Education/Training Program; ATTEND Internal Medicine
DX: J18.9 Pneumonia, unspecified organism (principal); I50.32 Chronic diastolic (congestive) heart failure; K55.9 Vascular disorder of intestine, unspecified; G40.909 Epilepsy, unspecified, not intractable, without status epilepticus; I48.91 Unspecified atrial fibrillation; D64.9 Anemia, unspecified; F41.9 Anxiety disorder, unspecified; F32.A Depression, unspecified; I11.0 Hypertensive heart disease with heart failure; E78.5 Hyperlipidemia, unspecified; G20 Parkinson's disease; F39 Unspecified mood [affective] disorder; Z88.0 Allergy status to penicillin; Z88.1 Allergy status to other antibiotic agents; Z88.8 Allergy status to other drugs, medicaments and biological substances; Z79.899 Other long term (current) drug therapy; Z79.82 Long term (current) use of aspirin; Z98.890 Other specified postprocedural states; Z87.81 Personal history of (healed) traumatic fracture; Z82.49 Family history of ischemic heart disease and other diseases of the circulatory system
CPT/HCPCS: 36415; 36416; 71045; 74177; 80048; 80053; 83605; 83735; 83880; 84145; 84484; 85025; 86850; 86900; 86901; 87040; 93005; 96361; 96365; 96367; 96368; 96375; 96376; G0378; J0457; J1956; J2405; J2765; J3370; J3490; J7050; Q0162; Q9967

== ENCOUNTER 2023-03-13 10:06 | Emergency (ER) | payer OTHER, MEDICARE ==
[2023-03-13 11:02] LABS: #Eosinphils 0.2 thou/uL (0.0-0.7); #Monocytes 0.7 thou/uL (0.11-0.59); #Neutrophils 9.5 thou/uL (1.40-6.50); %Basophils 0.3 % (0.0-1.0); %Eosinophils 1.9 % (0.0-10.0); %Lymphocytes 13.6 % (21.0-51.0); %Neutrophils 77.5 % (42.0-75.0); Hematocrit 44.5 % (36.0-47.0); Hemoglobin 14.5 g/dL (12.0-16.0); Mean Corpuscular HGB CONC 32.6 g/dL (32.0-36.0); Mean Corpuscular Hemoglobin 33.6 pg (27.0-31.0); Mean Platelet Volume 10.4 fL (7.4-10.4); Platelet Count 243 10x3/uL (130-400); RBC Distribution Width 12.8 % (11.5-14.5); Red Blood Cell (RBC) Count 4.32 mill/uL (4.20-5.40); White Blood Cell (WBC) Count 12.2 10x3/uL (4.8-10.8)
[2023-03-13] MEDS ORDERED: fentaNYL 50 mcg/mL 1 mL Vial ONE ×3 (11:16→16:40)
[2023-03-13] MEDS ORDERED: Iopamidol-370 76% 500 ML MDV (1 ML CHARGE) ONE (11:23)
[2023-03-13 11:44] LABS: INR-International Normal Ratio 1.2; PTT 31.6 sec (22.9-36.1); Prothrombin Time 16.1 sec (12.0-14.7)
[2023-03-13 12:03] LABS: ALT (SGPT) 31 U/L (8-55); AST (SGOT) 26 U/L (5-34); Alkaline Phosphatase 129 U/L (40-110); Anion Gap 13 mmol/L (10-20); BUN (Urea Nitrogen) 21 mg/dL (9.8-20.1); Bilirubin, Total 0.4 mg/dL (0.2-1.2); Calc. Creatinine Clearance 0 mL/min (70-130); Calcium 8.9 mg/dL (7.8-10.44); Carbon Dioxide 28 mmol/L (23-31); Chloride 105 mmol/L (98-107); Estimated GFR 50; Globulin 3.3 g/dL (2.4-3.5); Glucose 93 mg/dL (83-110); Potassium 3.2 mmol/L (3.5-5.1); Protein, Total 7.3 g/dL (5.8-8.1); Sodium 143 mmol/L (136-145)
[2023-03-13 13:32] LABS: Lipase Less than 4 U/L (8-78)
[2023-03-13] MEDS ORDERED: Acetaminophen 500 MG TAB ONE (16:46)
== END 2023-03-13 20:26 ==
LOC: ERS 10:06
DX: M25.551 Pain in right hip (principal); I10 Essential (primary) hypertension; Z79.899 Other long term (current) drug therapy; W01.0XXA Fall on same level from slipping, tripping and stumbling without subsequent striking against object, initial encounter
CPT/HCPCS: 70450; 71260; 72125; 73502; 73552; 74177; 80053; 83605; 83690; 85025; 85610; 85730; 93005; J3010; 36415; 96374; 96376; Q9967

== ENCOUNTER 2023-05-01 10:34 | Emergency (ER) | payer MEDICARE ==
[2023-05-01 12:17] LABS: #Eosinphils 0.1 thou/uL (0.0-0.7); #Monocytes 0.7 thou/uL (0.11-0.59); #Neutrophils 5.7 thou/uL (1.40-6.50); %Basophils 0.4 % (0.0-1.0); %Eosinophils 0.7 % (0.0-10.0); %Lymphocytes 13.9 % (21.0-51.0); %Monocytes 8.7 % (0.0-10.0); Hematocrit 30.9 % (36.0-47.0); Hemoglobin 9.6 g/dL (12.0-16.0); Mean Corpuscular HGB CONC 31.1 g/dL (32.0-36.0); Mean Corpuscular Hemoglobin 32.3 pg (27.0-31.0); Mean Platelet Volume 9.9 fL (7.4-10.4); Platelet Count 345 10x3/uL (130-400); RBC Distribution Width 15.3 % (11.5-14.5); Red Blood Cell (RBC) Count 2.97 mill/uL (4.20-5.40); White Blood Cell (WBC) Count 7.6 10x3/uL (4.8-10.8)
[2023-05-01 12:39] LABS: ALT (SGPT) 14 U/L (8-55); AST (SGOT) 19 U/L (5-34); Albumin 3.2 g/dL (3.4-4.8); Alkaline Phosphatase 152 U/L (40-110); Anion Gap 10 mmol/L (10-20); BUN (Urea Nitrogen) 12 mg/dL (9.8-20.1); Bilirubin, Total 0.3 mg/dL (0.2-1.2); Calc. Creatinine Clearance 0 mL/min (70-130); Calcium 8.7 mg/dL (7.8-10.44); Carbon Dioxide 24 mmol/L (23-31); Chloride 109 mmol/L (98-107); Estimated GFR 51; Globulin 3.1 g/dL (2.4-3.5); Glucose 110 mg/dL (83-110); Lipase Less than 4 U/L (8-78); Magnesium 1.8 mg/dL (1.6-2.6); Potassium 2.9 mmol/L (3.5-5.1); Protein, Total 6.3 g/dL (5.8-8.1); Sodium 140 mmol/L (136-145)
[2023-05-01] MEDS ORDERED: Morphine 4 MG/ML VIAL ONE (14:03)
[2023-05-01] MEDS ORDERED: Acetaminophen 500 MG TAB ONE (14:03)
[2023-05-01] MEDS ORDERED: Gabapentin 300 MG CAP ONE (14:04)
[2023-05-01] MEDS ORDERED: Potassium Chloride 20 MEQ TAB ONE (14:04)
[2023-05-01] MEDS ORDERED: Morphine 2 MG/ML VIAL ONE (15:12)
[2023-05-01] MEDS ORDERED: Iopamidol-370 76% 500 ML MDV (1 ML CHARGE) ONE (15:41)
[2023-05-01] MEDS ORDERED: Magnevist 469MG/ML 20 ML VIAL ONE ×2 (15:50)
[2023-05-01] MEDS ORDERED: Ondansetron ODT 4 MG TAB ONE (18:57)
[2023-05-01] MEDS ORDERED: HYDROcodone/Acetaminophen 5/325 mg Tablet ONE (18:57)
== END 2023-05-01 19:14 | disposition home or self-care (01) ==
LOC: ERS 10:34
DX: M25.552 Pain in left hip (principal); E87.6 Hypokalemia; I10 Essential (primary) hypertension; Z79.899 Other long term (current) drug therapy
CPT/HCPCS: 36415; 72157; 72158; 72170; 74177; 80053; 83690; 83735; 85025; 96374; A9579; J2270; J2272; Q0162; Q9967